=== PATIENT | female | born 1950 | race Caucasian/White ===

== ENCOUNTER 2016-11-18 09:39 | Emergency (ER) | payer OTHER, MEDICARE ==
[~2016-11-18] VITALS: Ht 149.9 cm; Wt 105.2 kg
[~2016-11-18 09:39] MED LIST: AMLO10TA PO; AMLO10TA2 PO; AMLO10TA82 PO; ASPI-875 PO; ATOR40TA70 PO; BNZ20T PO; CLOP75TA PO; LOVA40TA2 PO; METO50TA2 PO; PRAV40TA PO; PRAV80TA2 PO
[2016-11-18] MEDS ORDERED: ASPIRIN 81 MG CHEW (CHILDREN'S ASA) PO ONE (10:00)
[2016-11-18] MEDS ORDERED: KETOROLAC 30 MG/ML VIAL IVP ONE (10:00)
[2016-11-18 10:01] LABS: BASOPHILS % (AUTO) 1 % (0-10); EOSINOPHILS # (AUTO) 0.6 10^3/uL (0.0-0.3); EOSINOPHILS % (AUTO) 7 % (0-10); LYMPHOCYTES # (AUTO) 1.1 X 10^3 (1.0-4.0); LYMPHOCYTES % (AUTO) 13 % (12-44); MEAN CORPUSCULAR HEMOGLOBIN 29 PG (25-34); MEAN CORPUSCULAR HGB CONC 32 G/DL (32-36); MEAN CORPUSCULAR VOLUME 90 FL (80-99); MEAN PLATELET VOLUME 9.7 FL (7.4-10.4); MONOCYTES # (AUTO) 0.7 X 10^3 (0.0-1.0); MONOCYTES % (AUTO) 8 % (0-12); NEUTROPHILS # (AUTO) 6.2 X 10^3 (1.8-7.8); NEUTROPHILS % (AUTO) 72 % (42-75); PLATELET COUNT 340 10^3/uL (130-400); RED BLOOD COUNT 4.59 10^6/uL (4.35-5.85); RED CELL DISTRIBUTION WIDTH 14.1 % (10.0-14.5); WHITE BLOOD COUNT 8.7 10^3/uL (4.3-11.0)
[2016-11-18 10:11] LABS: PROTHROMBIN TIME PATIENT 13.3 SEC (12.2-14.7)
[2016-11-18 10:22] LABS: ALANINE AMINOTRANSFERASE 16 U/L (0-55); ALBUMIN 4.1 GM/DL (3.2-4.5); ANION GAP 11 MMOL/L (5-14); ASPARTATE AMINO TRANSFERASE 16 U/L (5-34); BILIRUBIN,TOTAL 0.8 MG/DL (0.1-1.0); BLOOD UREA NITROGEN 12 MG/DL (7-18); BUN/CREATININE RATIO 11 (0-20); CALCIUM 9.3 MG/DL (8.5-10.1); CARBON DIOXIDE 26 MMOL/L (21-32); CHLORIDE 106 MMOL/L (98-107); CREATININE SERUM 1.12 MG/DL (0.60-1.30); GFR ESTIMATED 48; GLUCOSE 106 MG/DL (70-105); POTASSIUM 4.1 MMOL/L (3.6-5.0); SODIUM 143 MMOL/L (135-145); TOTAL PROTEIN 7.8 GM/DL (6.4-8.2)
[2016-11-18 10:30] LABS: MYOGLOBIN SERUM 40.1 NG/ML (10.0-92.0)
--- NOTE | 2016-11-18 10:35 | Diagnostic Imaging Report ---
EXAMINATION: PA and lateral views of the chest. INDICATION: Shortness of breath. COMPARISON: 08/24/2012. FINDINGS: The heart size is moderately enlarged. There is minimal vascular congestion. No airspace consolidation. No effusion or pneumothorax. The mediastinum and araceli appear unremarkable. Sternotomy wires are seen and surgical clips in the upper right abdomen are noted. IMPRESSION: Cardiomegaly with minimal vascular congestion. Dictated by: Dictated on workstation # [id number]
--- NOTE | 2016-11-18 10:38 | ED Chest Pain ---
General Chief Complaint: Chest Pain Stated Complaint: CHEST PAIN Nursing Triage Note: PT REPORTS PAIN BETWEEN HER SHOULDER BLADES SINCE YESTERDAY. SHE IS ALSO C/O INCREASED SOA. PT REPORTS SHE BECAME DIAPHORETIC, BUT DENIES N/V. SHE DENIES CP AT THIS TIME. Nursing Sepsis Screen: No Definite Risk Source: patient Exam Limitations: no limitations History of Present Illness Time seen by provider: 09:47 Initial Comments This 66-year-old woman presents to the emergency room with complaints of pain in the right upper back and shortness of air. She has been diaphoretic at times with this pain as well. The pain is characterized as stabbing and is near the scapula on the right. It sometimes hurts to take a deep breath. Pain started last night. Patient reports she is 10 weeks post knee replacement. She also has a history of coronary artery disease and CABG. Her last heart catheter was in January 2016. She denies any tobacco use. Her budget counselor is Dr. Davis and her primary care provider is Jada Paul. She has tender, tight musculature in the affected area. She denies lower extremity symptoms. There is no tachycardia or hypoxia. Allergies and Home Medications Allergies Coded Allergies: ciprofloxacin (Unverified Allergy, Unknown, 07/31/14) cortisone (Verified Allergy, Unknown, 08/24/12) lovastatin (Unverified Allergy, Unknown, 01/22/16) ALLERGY LISTED ON [employer] SUPERINTENDENT ORDER 01/22/16 Home Medications Amlodipine Besylate 10 Mg Tablet, 10 MG PO DAILY, #30 Ref 5 Prescribed by: CITLALI DAVIS on 01/22/16 0947 Aspirin 81 Mg Tablet.dr, 81 MG PO DAILY, (Reported) Atorvastatin Calcium 40 Mg Tablet, 40 MG PO DAILY, (Reported) Clopidogrel Bisulfate 75 Mg Tablet, 75 MG PO DAILY, (Reported) Metoprolol Tartrate 50 Mg Tablet, 50 MG PO BID, (Reported) Review of Systems Constitutional: see HPI EENTM: No Symptoms Reported Respiratory: See HPI Cardiovascular: See HPI Gastrointestinal: No Symptoms Reported Musculoskeletal: see HPI Skin: no symptoms reported Psychiatric/Neurological: No Symptoms Reported Endocrine: No Symptoms Reported Past Vozlncd-Ayomcj-Beilxy Hx Patient Social History Alcohol Use: Denies Use Recreational Drug Use: No Smoking Status: Never a Smoker 2nd Hand Smoke Exposure: No Recent Foreign Travel: No Contact w/Someone Who Travel: No Recent Infectious Disease Expo: No Recent Hopitalizations: No Immunizations Up To Date Date of Pneumonia Vaccine: Feb 15, 2014 Surgeries HX Surgeries: Yes (HIATAL HERNIA, BLADDER TIE UP X2, INGUINAL HERNIA) Surgeries: Appendectomy, CABG, Coronary Stent, Hysterectomy, Joint Replacement (knee), Orthopedic, Tonsillectomy, Tubal Ligation Respiratory Hx Respiratory Disorders: Yes Respiratory Disorders: COPD Cardiovascular Hx Cardiac Disorders: Yes Cardiac Disorders: Coronary Artery Disease, Heart Attack, High Cholesterol, Hypertension Neurological Hx Neurological Disorders: No Reproductive System : No Genitourinary Hx Genitourinary Disorders: No Gastrointestinal Hx Gastrointestinal Disorders: No Musculoskeletal Hx Musculoskeletal Disorders: Yes Musculoskeletal Disorders: Arthritis Endocrine Hx Endocrine Disorders: No HEENT HX ENT Disorders: No Cancer Hx Cancer: No Psychosocial Hx Psychiatric Problems: Yes Physical Exam Vital Signs Vital Sign - Last 12Hours Capillary Refill : Less Than 3 Seconds General Appearance: WD/WN, Anxious, Mild Distress, Obese HEENT: PERRL/EOMI, Normal ENT Inspection Neck: Normal Inspection Respiratory: Chest Non Tender, Lungs Clear, Normal Breath Sounds, No Accessory Muscle Use, No Respiratory Distress Cardiovascular: Regular Rate, Rhythm, No Edema, No Murmur Gastrointestinal: Normal Bowel Sounds, Non Tender, Soft Extremity: Normal Inspection, Non Tender, No Calf Tenderness, No Pedal Edema, Other (negative Morelia. Tenderness over the musculature medial and inferior to the right scapula with muscle tension and spasm noted.) Neurologic/Psychiatric: Alert, Oriented x3, No Motor/Sensory Deficits, Normal Mood/Affect, powder guard II-XII Norm as Tested Skin: Normal Color, Warm/Dry Progress/Results/Core Measures Results/Orders Lab Results Laboratory Tests Test 11/18/16 09:50 Range/Units White Blood Count 8.7 4.3-11.0 10^3/uL Red Blood Count 4.59 4.35-5.85 10^6/uL Hemoglobin 13.2 11.5-16.0 G/DL Hematocrit 41 35-52 % Mean Corpuscular Volume 90 80-99 FL Mean Corpuscular Hemoglobin 29 25-34 PG Mean Corpuscular Hemoglobin Concent 32 32-36 G/DL Red Cell Distribution Width 14.1 10.0-14.5 % Platelet Count 340 130-400 10^3/uL Mean Platelet Volume 9.7 7.4-10.4 FL Neutrophils (%) (Auto) 72 42-75 % Lymphocytes (%) (Auto) 13 12-44 % Monocytes (%) (Auto) 8 0-12 % Eosinophils (%) (Auto) 7 0-10 % Basophils (%) (Auto) 1 0-10 % Neutrophils # (Auto) 6.2 1.8-7.8 X 10^3 Lymphocytes # (Auto) 1.1 1.0-4.0 X 10^3 Monocytes # (Auto) 0.7 0.0-1.0 X 10^3 Eosinophils # (Auto) 0.6 H 0.0-0.3 10^3/uL Basophils # (Auto) 0.0 0.0-0.1 10^3/uL Prothrombin Time 13.3 12.2-14.7 SEC INR Comment 1.0 0.8-1.4 Activated Partial Thromboplast Time 28 24-35 SEC Sodium Level 143 135-145 MMOL/L Potassium Level 4.1 3.6-5.0 MMOL/L Chloride Level 106 98-107 MMOL/L Carbon Dioxide Level 26 21-32 MMOL/L Anion Gap 11 5-14 MMOL/L Blood Urea Nitrogen 12 7-18 MG/DL Creatinine 1.12 0.60-1.30 MG/DL Estimat Glomerular Filtration Rate 48 BUN/Creatinine Ratio 11 0-20 Glucose Level 106 H 70-105 MG/DL Calcium Level 9.3 8.5-10.1 MG/DL Magnesium Level 2.0 1.8-2.4 MG/DL Total Bilirubin 0.8 0.1-1.0 MG/DL Aspartate Amino Transf (AST/SGOT) 16 5-34 U/L Alanine Aminotransferase (ALT/SGPT) 16 0-55 U/L Alkaline Phosphatase 106 40-136 U/L Myoglobin 40.1 10.0-92.0 NG/ML Troponin I < 0.30 <0.30 NG/ML Total Protein 7.8 6.4-8.2 GM/DL Albumin 4.1 3.2-4.5 GM/DL My Orders Orders - NATALIO KATHLEEN MD Cbc With Automated Diff (11/18/16 09:55) Magnesium (11/18/16 09:55) Ekg Tracing (11/18/16 09:55) Cardiac Profile 1 (11/18/16 09:55) Comprehensive Metabolic Panel (11/18/16 09:55) Myoglobin Serum (11/18/16 09:55) Protime With Inr (11/18/16 09:55) Partial Thromboplastin Time (11/18/16 09:55) O2 (11/18/16 09:55) Monitor-Rhythm Ecg Trace Only (11/18/16 09:55) Aspirin Chewable Tablet (Baby Aspirin Ch (11/18/16 10:00) Saline Lock/Iv-Start (11/18/16 09:55) Chest Pa/Lat (2 View) (11/18/16 09:55) Ketorolac Injection (Toradol Injection) (11/18/16 10:00) Medications Given in ED Vital Signs/I&O Vital Sign - Last 12Hours 11/18/16 11/18/16 11/18/16 09:50 09:50 11:08 Temp 98.9 98.9 Pulse 63 51 Resp 20 20 B/P (MAP) 187/114 Pulse Ox 97 97 O2 Delivery Room Air Room Air Room Air Blood Pressure Mean: 138 Progress Note #1: Time: 10:00 Progress Note Patient was found to have tight tender musculature in the area pertaining to her complaint. Toradol was given for treatment of pain. Chest pain protocol is being pursued. Patient was given the balance of her aspirin. Progress Note #2: Time: 11:06 Progress Note Patient's pain completely resolved with Toradol. Case discussed with Dr. Davis. He would like her to follow-up in the clinic tomorrow for a blood pressure check and management of her antihypertensive medicines. ECG Initial ECG Impression Date: Nov 18, 2016 Initial ECG Impression Time: 09:44 Initial ECG Rate: 63 Initial ECG Rhythm: Normal Sinus Initial ECG Intervals: Normal Comment Normal sinus rhythm with no ST elevation or depression. LVH by automated read. No abnormal intervals. Diagnostic Imaging Diagonstic Imaging: Xray Plain Films/CT/US/NM/MRI: chest Comments Chest X reviewed by me and report reviewed. See report below: NAME: STAILN YOUNG MED REC#: [id number] PT STATUS: REG ER : [id number] PHYSICIAN: NATALIO KATHLEEN MD ADMIT DATE: 11/18/16/ER Draft Date of Exam:11/18/16 CHEST PA/LAT (2 VIEW) EXAMINATION: PA and lateral views of the chest. INDICATION: Shortness of breath. COMPARISON: 08/24/2012. FINDINGS: The heart size is moderately enlarged. There is minimal vascular congestion. No airspace consolidation. No effusion or pneumothorax. The mediastinum and araceli appear unremarkable. Sternotomy wires are seen and surgical clips in the upper right abdomen are noted. IMPRESSION: Cardiomegaly with minimal vascular congestion. Dictated on workstation # [id number] Dict: 11/18/16 1023 Trans: 11/18/16 1035 [id number] Interpreted by: ADRIEN SHRESTHA MD Departure Impression Impression: Primary Impression: Upper back pain Additional Impressions: Muscle spasm Hypertension Qualified Codes: I10 - Essential (primary) hypertension Disposition: HOME, SELF-CARE Condition: Improved Departure-Patient Inst. Decision time for Depature: 11:03 Referrals: [facility]ALI DAVIS [facility] NO,LOCAL PHYSICIAN (PCP) Primary Care Physician Patient Instructions: Muscle Spasms (DC) Add. Discharge Instructions: You may take ibuprofen up to 600 mg every 6 hours as needed for pain. Add Tylenol (acetaminophen) up to 1000 mg every 6 hours as needed for additional pain relief. All up with Dr. Davis tomorrow for management of your blood pressure. Call his office today for an appointment time. Return to the ER if symptoms worsen. All discharge instructions reviewed with patient and/or family. Voiced understanding. Copy Copies To 1: CITLALI DAVIS MDP [facility] NATALIO KATHLEEN MD Nov 18, 2016 10:38
[2016-11-18 11:08] VITALS: BP 171/90
== END 2016-11-18 11:09 | disposition home or self-care (01) ==
LOC: EDUNIT# 09:39 → ER 09:42
DX: M62.830 Muscle spasm of back (principal); I10 Essential (primary) hypertension; J44.9 Chronic obstructive pulmonary disease, unspecified; I25.10 Atherosclerotic heart disease of native coronary artery without angina pectoris; I25.2 Old myocardial infarction; E78.00 Pure hypercholesterolemia, unspecified; Z95.1 Presence of aortocoronary bypass graft; Z79.82 Long term (current) use of aspirin
CPT/HCPCS: 36415; 71020; 80053; 83735; 83874; 84484; 85025; 85610; 85730; 93005; 93041

== ENCOUNTER → 2017-03-17 | Outpatient (CLI) | payer OTHER | LOC: CARD 10:36 | PROVIDERS: ATTEND Internal Medicine Cardiovascular Disease | DX: I25.10 Atherosclerotic heart disease of native coronary artery without angina pectoris (principal); R06.09 Other forms of dyspnea; R60.0 Localized edema; E78.2 Mixed hyperlipidemia; I10 Essential (primary) hypertension; I73.9 Peripheral vascular disease, unspecified; Z95.1 Presence of aortocoronary bypass graft | CPT/HCPCS: 93306; 93923 ==

== ENCOUNTER 2017-05-02 19:14 | Emergency (ER) | payer MEDICARE, OTHER ==
[~2017-05-02] VITALS: Ht 149.9 cm; Wt 105.2 kg
[2017-05-02] MEDS ORDERED: LACTATED RINGERS 1,000 ML IV ONE (19:29)
[2017-05-02] MEDS ORDERED: ONDANSETRON 4 MG/2 ML (SDV) Z0FRAN IVP ONE (19:30)
--- NOTE | 2017-05-02 19:38 | ED GI ---
General Chief Complaint: Abdominal/GI Problems Stated Complaint: VOMITING,DIARRHEA Nursing Triage Note: N/V/D Sepsis Screen: No Definite Risk Source of Information: Patient, Family (SON) History of Present Illness Time Seen By Provider: 19:30 Initial Comments PT ARRIVES VIA POV FROM HOME C/O NAUSEA/VOMITING/DIARRHEA SINCE 529 THIS AM HAS BEEN VOMITING AND HAVING DIARRHEA "EVERY 30 MINUTES" ALL DAY LONG--HAS BEEN TRYING TO DRINK SPRITE ALL DAY BUT CANNOT KEEP IT DOWN NO ABDOMINAL PAIN NO BACK PAIN NO FEVER VOIDING A NORMAL AMOUNT AND NO DIFFICULTY URINATING STARTING TO FEEL WEAK + SICK CONTACT WITH SAME NO SUSPICIOUS FOODS PCP: LAW FERRELL TROLLEY COLLECTOR: DR. PRADO Allergies and Home Medications Allergies Coded Allergies: ciprofloxacin (Unverified Allergy, Unknown, 07/31/14) cortisone (Verified Allergy, Unknown, 08/24/12) lovastatin (Unverified Allergy, Unknown, 01/22/16) ALLERGY LISTED ON [employer] ORDER 01/22/16 Home Medications Amlodipine Besylate 10 Mg Tablet, 10 MG PO DAILY, #30 Ref 5 Prescribed by: CITLALI PRADO on 01/22/16 0947 Aspirin 81 Mg Tablet.dr, 81 MG PO DAILY, (Reported) Atorvastatin Calcium 40 Mg Tablet, 40 MG PO DAILY, (Reported) Clopidogrel Bisulfate 75 Mg Tablet, 75 MG PO DAILY, (Reported) Metoprolol Tartrate 50 Mg Tablet, 50 MG PO BID, (Reported) Nitrofurantoin Monohyd/M-Cryst 100 Mg Capsule, 100 MG PO BID, #20 Prescribed by: MAGALIE MARTIN on 05/02/172040 Ondansetron 4 Mg Tab.rapdis, 4 MG PO Q4H, #10 Prescribed by: MAGALIE MARTIN on 05/02/172040 Review of Systems Constitutional: No chills, No diaphoresis, No dizziness, malaise, weakness EENTM: No Symptoms Reported Respiratory: No Symptoms Reported Cardiovascular: No Symptoms Reported Gastrointestinal: See HPI, Denies Abdominal Pain, Diarrhea, Nausea, Poor Appetite, Poor Fluid Intake, Vomiting Genitourinary: No Symptoms Reported Musculoskeletal: no symptoms reported Skin: no symptoms reported Psychiatric/Neurological: No Symptoms Reported Endocrine: No Symptoms Reported Hematologic/Lymphatic: No Symptoms Reported Past Hznqymf-Xbtbav-Lgvhci Hx Patient Social History Alcohol Use: Denies Use Recreational Drug Use: No Smoking Status: Never a Smoker 2nd Hand Smoke Exposure: No Recent Foreign Travel: No Contact w/Someone Who Travel: No Recent Infectious Disease Expo: No Recent Hopitalizations: No Immunizations Up To Date Date of Pneumonia Vaccine: Feb 15, 2014 Seasonal Allergies Seasonal Allergies: Yes Surgeries History of Surgeries: Yes (HIATAL HERNIA REPAIR; BLADDER SUSPENSION X2; INGUINAL HERNIA; CARDIAC CATHS--STENTX 1; BILATERAL KNEE REPLACEMENTS; 2 VESSEL CABG) Surgeries: Abdominal, Appendectomy, Cardiac, CABG, Coronary Stent, Gallbladder , Hysterectomy, Joint Replacement, Orthopedic, Tonsillectomy, Tubal Ligation Respiratory History of Respiratory Disorde: Yes Respiratory Disorders: COPD Cardiovascular History of Cardiac Disorders: Yes (CABG AND STENT X 1) Cardiac Disorders: Coronary Artery Disease, Heart Attack, High Cholesterol, Hypertension Neurological History of Neurological Disord: No Reproductive System : No 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, Tubal Ligation, Menopausal Genitourinary History of Genitourinary Disor: No Gastrointestinal History of Gastrointestinal Di: Yes (HIATAL HERNIA/INGUINAL HERNIA--S/P REPAIRS ; S/P YIMI) Gastrointestinal Disorders: Abdominal Hernia, Gastroesophageal Reflux, Hiatal Hernia, Gall Bladder Disease Musculoskeletal History of Musculoskeletal Dis: Yes (S/P BILATEARL KNEE REPLACEMENT) Musculoskeletal Disorders: Arthritis Endocrine History of Endocrine Disorders: No HEENT History of HEENT Disorders: No Cancer History of Cancer: No Psychosocial History of Psychiatric Problem: No Integumentary History of Skin or Integumenta: No Blood Transfusions History of Blood Disorders: No Physical Exam Vital Signs VS - Last 72 Hours, by Label 05/02/17 05/02/17 19:26 20:49 Temp 97.3 97.3 Pulse 109 90 Resp 24 22 B/P (MAP) 178/104 Pulse Ox 93 92 O2 Delivery Room Air Room Air Capillary Refill : Less Than 3 Seconds General Appearance: WD/WN, no apparent distress Respiratory: normal breath sounds, no respiratory distress, no accessory muscle use Cardiovascular: regular rate, rhythm, no edema, no JVD, no murmur Gastrointestinal: normal bowel sounds, non tender, soft, no organomegaly Extremities: normal inspection, no pedal edema, no calf tenderness, normal capillary refill Back: no CVA tenderness, no vertebral tenderness 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, no motor/sensory deficits, alert, normal mood/affect, oriented x 3 Skin: normal color, warm/dry, No rash Progress/Results/Core Measures Results/Orders Lab Results Laboratory Tests Test 05/02/17 19:30 05/02/17 19:35 Range/Units Urine Color YELLOW Urine Clarity SLIGHTLY CLOUDY Urine pH 5 5-9 Urine Specific [place] 1.025 H 1.016-1.022 Urine Protein 2+ H NEGATIVE Urine Glucose (UA) NEGATIVE NEGATIVE Urine Ketones NEGATIVE NEGATIVE Urine Nitrite NEGATIVE NEGATIVE Urine Bilirubin 1+ H NEGATIVE Urine Urobilinogen NORMAL NORMAL MG/DL Urine Leukocyte Esterase 3+ H NEGATIVE Urine RBC (Auto) 1+ H NEGATIVE Urine RBC 0-2 /HPF Urine WBC 25-50 H /HPF Urine Squamous Epithelial Cells >50 H /HPF Urine Crystals PRESENT H /LPF Urine Amorphous Sediment FEW GRECIA URATES H /LPF Urine Bacteria FEW H /HPF Urine Casts NONE /LPF Urine Mucus NEGATIVE /LPF Urine Culture Indicated YES White Blood Count 13.7 H 4.3-11.0 10^3/uL Red Blood Count 5.04 4.35-5.85 10^6/uL Hemoglobin 14.0 11.5-16.0 G/DL Hematocrit 43 35-52 % Mean Corpuscular Volume 85 80-99 FL Mean Corpuscular Hemoglobin 28 25-34 PG Mean Corpuscular Hemoglobin Concent 33 32-36 G/DL Red Cell Distribution Width 15.1 H 10.0-14.5 % Platelet Count 396 130-400 10^3/uL Mean Platelet Volume 9.7 7.4-10.4 FL Neutrophils (%) (Auto) 91 H 42-75 % Lymphocytes (%) (Auto) 4 L 12-44 % Monocytes (%) (Auto) 4 0-12 % Eosinophils (%) (Auto) 1 0-10 % Basophils (%) (Auto) 0 0-10 % Neutrophils # (Auto) 12.5 H 1.8-7.8 X 10^3 Lymphocytes # (Auto) 0.5 L 1.0-4.0 X 10^3 Monocytes # (Auto) 0.6 0.0-1.0 X 10^3 Eosinophils # (Auto) 0.1 0.0-0.3 10^3/uL Basophils # (Auto) 0.0 0.0-0.1 10^3/uL Neutrophils % (Manual) 81 % Lymphocytes % (Manual) 5 % Monocytes % (Manual) 2 % Eosinophils % (Manual) 0 % Basophils % (Manual) 0 % Band Neutrophils 12 % Blood Morphology Comment NORMAL Sodium Level 137 135-145 MMOL/L Potassium Level 4.2 3.6-5.0 MMOL/L Chloride Level 102 98-107 MMOL/L Carbon Dioxide Level 22 21-32 MMOL/L Anion Gap 13 5-14 MMOL/L Blood Urea Nitrogen 17 7-18 MG/DL Creatinine 1.04 0.60-1.30 MG/DL Estimat Glomerular Filtration Rate 53 BUN/Creatinine Ratio 16 Glucose Level 109 H 70-105 MG/DL Calcium Level 9.3 8.5-10.1 MG/DL Total Bilirubin 1.1 H 0.1-1.0 MG/DL Aspartate Amino Transf (AST/SGOT) 24 5-34 U/L Alanine Aminotransferase (ALT/SGPT) 18 0-55 U/L Alkaline Phosphatase 105 40-136 U/L Total Protein 9.1 H 6.4-8.2 GM/DL Albumin 4.0 3.2-4.5 GM/DL Amylase Level 56 25-125 U/L Lipase 37 8-78 U/L My Orders Orders - MAGALIE MARTIN DO Saline Lock/Iv-Start (05/02/17 19:29) Amylase (05/02/17 19:29) Cbc With Automated Diff (05/02/17 19:29) Comprehensive Metabolic Panel (05/02/17 19:29) Lipase (05/02/17 19:29) Ua Culture If Indicated (05/02/17 19:29) Ondansetron Injection (Zofran Injectio (05/02/17 19:30) Saline Lock/Iv-Start (05/02/17 19:29) Lactated Ringers (Lr 1000 Ml Iv Solution (05/02/17 19:29) Manual Differential (05/02/17 19:35) Urine Culture (05/02/17 19:30) Rx-Ondansetron Po (Rx-Zofran Po) (05/02/17 20:35) Rx-Nitrofurantoin [place] (Rx-Macrobid) (05/02/17 20:35) Medications Given in ED Current Medications Medications Dose Ordered Sig/Ivy Route Start Time Stop Time Status Last Admin Dose Admin Lactated Ringer's 1,000 ml @ 0 mls/hr Q0M ONCE IV 05/02/17 19:29 05/02/17 19:31 DC 05/02/17 19:38 0 MLS/HR Ondansetron HCl 4 mg ONCE ONCE IVP 05/02/17 19:30 05/02/17 19:31 DC 05/02/17 19:38 4 MG Vital Signs/I&O Vital Sign - Last 12Hours 05/02/17 05/02/17 19:26 20:49 Temp 97.3 97.3 Pulse 109 90 Resp 24 22 B/P (MAP) 178/104 Pulse Ox 93 92 O2 Delivery Room Air Room Air Intake and Output 05/03/17 00:00 Intake Total 1000 ml Balance 1000 ml Blood Pressure Mean: 128 Progress Note : Progress Note NO VOMITING OR DIARRHEA DURING ER STAY PT STATES SHE FEELS BETTER AFTER ZOFRAN AND IV FLUIDS VOIDED PRIOR TO DISMISSAL PT TOLERATING WATER AND ICE CHIPS PRIOR TO DISMISSAL Departure Impression Impression: Primary Impression: Gastroenteritis Additional Impression: UTI (urinary tract infection) Disposition: HOME, SELF-CARE Condition: Stable Departure-Patient Inst. Referrals: ANTONINO FERRELL (PCP/Family) Primary Care Physician Patient Instructions: [id number], Urinary Tract Infection, Adult (DC), Viral Gastroenteritis, Adult (DC) Add. Discharge Instructions: CLEAR LIQUIDS--WATER, BROTH, JELLO, GATORADE--SIPS AT A TIME TOMORROW IF YOU ARE BETTER, ADD BRATS DIET TO CLEAR LIQUIDS--BANANAS, RICE, APPLESAUCE, TOAST, SALTINES FOLLOW UP WITH YOUR DR ON THURSDAY IF NO BETTER, RETURN TO ER IF WORSE All discharge instructions reviewed with patient and/or family. Voiced understanding. Scripts Nitrofurantoin Monohyd/M-Cryst (Macrobid 100 mg Capsule) 100 Mg Capsule 100 MG PO BID, #20 CAP Prov: MAGALIE MARTIN DO 05/02/17 Ondansetron (Zofran Odt) 4 Mg Tab.rapdis 4 MG PO Q4H for Nausea/Vomiting, #10 TAB Prov: MAGALIE MARTIN DO 05/02/17 MAGALIE MARTIN DO May 02, 2017 19:38
[2017-05-02 19:45] LABS: BASOPHILS % (AUTO) 0 % (0-10); EOSINOPHILS # (AUTO) 0.1 10^3/uL (0.0-0.3); EOSINOPHILS % (AUTO) 1 % (0-10); LYMPHOCYTES # (AUTO) 0.5 X 10^3 (1.0-4.0); LYMPHOCYTES % (AUTO) 4 % (12-44); MEAN CORPUSCULAR HEMOGLOBIN 28 PG (25-34); MEAN CORPUSCULAR HGB CONC 33 G/DL (32-36); MEAN CORPUSCULAR VOLUME 85 FL (80-99); MEAN PLATELET VOLUME 9.7 FL (7.4-10.4); MONOCYTES # (AUTO) 0.6 X 10^3 (0.0-1.0); MONOCYTES % (AUTO) 4 % (0-12); NEUTROPHILS # (AUTO) 12.5 X 10^3 (1.8-7.8); NEUTROPHILS % (AUTO) 91 % (42-75); PLATELET COUNT 396 10^3/uL (130-400); RED BLOOD COUNT 5.04 10^6/uL (4.35-5.85); RED CELL DISTRIBUTION WIDTH 15.1 % (10.0-14.5); WHITE BLOOD COUNT 13.7 10^3/uL (4.3-11.0)
[2017-05-02 19:50] LABS: BILIRUBIN,URINE 1+ (NEGATIVE); KETONES,URINE NEGATIVE (NEGATIVE); LEUKOCYTE ESTERASE ,URINE 3+ (NEGATIVE); NITRITE,URINE NEGATIVE (NEGATIVE); PH,URINE 5 (5-9); PROTEIN,URINE 2+ (NEGATIVE); UROBILINOGEN,URINE NORMAL (NORMAL)
[2017-05-02 19:58] LABS: BAND NEUTROPHILS 12 %; BASOPHILS % (MANUAL) 0 %; EOSINOPHILS % (MANUAL) 0 %; LYMPHOCYTES % (MANUAL) 5 %; NEUTROPHILS % (MANUAL) 81 %
[2017-05-02 20:06] LABS: SQUAMOUS EPITHELIAL CELL,UR >50 /HPF; WBC,URINE 25-50 /HPF
[2017-05-02 20:06] LABS: BILIRUBIN,TOTAL 1.1 MG/DL (0.1-1.0); CALCIUM 9.3 MG/DL (8.5-10.1); CREATININE SERUM 1.04 MG/DL (0.60-1.30); POTASSIUM 4.2 MMOL/L (3.6-5.0); TOTAL PROTEIN 9.1 GM/DL (6.4-8.2)
[2017-05-02] MEDS ORDERED: RX-NITROFURANTOIN 100 MG (MACROBID) CAP PPK#2 PO STA (20:35)
[2017-05-02] MEDS ORDERED: RX-ONDANSETRON 4 MG ODT (ZOFRAN) PPK #4 PO STA (20:35)
[2017-05-02] MEDS ORDERED: NITR-65 PO (20:41)
[2017-05-02] MEDS ORDERED: ONDA4TAB8 PO (20:41)
[2017-05-02 20:49] VITALS: BP 156/105
== END 2017-05-02 20:44 | disposition home or self-care (01) ==
LOC: EDUNIT# 19:14 → ER 19:16
DX: K52.9 Noninfective gastroenteritis and colitis, unspecified (principal); N39.0 Urinary tract infection, site not specified; J44.9 Chronic obstructive pulmonary disease, unspecified; I25.10 Atherosclerotic heart disease of native coronary artery without angina pectoris; I25.2 Old myocardial infarction; E78.00 Pure hypercholesterolemia, unspecified; I10 Essential (primary) hypertension; M19.90 Unspecified osteoarthritis, unspecified site; Z79.82 Long term (current) use of aspirin; Z87.19 Personal history of other diseases of the digestive system; Z95.5 Presence of coronary angioplasty implant and graft; Z96.653 Presence of artificial knee joint, bilateral; Z90.49 Acquired absence of other specified parts of digestive tract; Z95.1 Presence of aortocoronary bypass graft; Z90.710 Acquired absence of both cervix and uterus; Z98.51 Tubal ligation status; Z90.89 Acquired absence of other organs
CPT/HCPCS: 36415; 80053; 81000; 82150; 83690; 85007; 85025; 85027; 87088

== ENCOUNTER → 2018-09-14 | Outpatient (CLI) | payer OTHER ==
[~2018-09-14] VITALS: Ht 144.8 cm; Wt 112.0 kg
[~2018-09-14] MED LIST changes: -AMLO10TA2 PO; +AMLO10TA7 PO; +CATHETER FLUSH 10 ML SYR IV PRN; +METO50TA15 PO; +NITR-65 PO; +ONDA4TAB8 PO; +REGADENOSON 0.4 MG/5 ML SYR (LEXISCAN) IV ONE
[2018-09-14 09:16] VITALS: BP 189/101
[2018-09-14 09:17] VITALS: BP 182/94
--- NOTE | 2018-09-14 19:41 | STRESS TEST ---
DATE OF SERVICE: 09/14/2018 RESTING AND POST REGADENOSON TECHNETIUM-99M TETROFOSMIN SPECT CT IMAGING ORDERING PHYSICIAN: Selene Davis MD, LESLEY, FACP, FACC. PRIMARY CARE PHYSICIAN: ROSMERY Francis. CLINICAL DIAGNOSES: Coronary artery disease, hyperlipidemia. Baseline images were carried out after injection of 10.37 mCi technetium-99m Tetrofosmin. This was followed by 0.4 mg regadenoson and 30.2 mCi technetium-99m Tetrofosmin for stress imaging. The electrocardiogram shows sinus rhythm at baseline. The electrocardiogram did not change significantly with the regadenoson infusion. There was subtle nonspecific ST abnormality at baseline, which did not change significantly with the regadenoson infusion. The patient noted some shortness of breath following the regadenoson infusion, which resolved in a few minutes. Review of images at rest and following stress does not indicate any significant perfusion defects consistent with significant myocardial ischemia or infarction. Gated images show normal global left ventricular systolic function with normal regional wall motion. Left ventricular ejection fraction is calculated to be 72%. Left ventricular end diastolic volume is 36 mL. TID is absent (1). CONCLUSIONS: 1. No evidence of any significant myocardial ischemia or infarction on this study. 2. Normal regional wall motion. 3. Normal global left ventricular systolic function with an ejection fraction of 72%. Job ID: [id number] DocumentID: [id number] Dictated Date: 09/14/2018 16:19:51 Washing Machine Operator Date: 09/14/2018 19:40:06 Dictated By: SELENE DAVIS MD, LESLEY, FACP, FACC,
== END ==
LOC: CARD 07:41
PROVIDERS: ATTEND Internal Medicine Cardiovascular Disease
DX: I25.10 Atherosclerotic heart disease of native coronary artery without angina pectoris (principal); E78.5 Hyperlipidemia, unspecified; I10 Essential (primary) hypertension; E66.9 Obesity, unspecified; I65.23 Occlusion and stenosis of bilateral carotid arteries; G47.33 Obstructive sleep apnea (adult) (pediatric); Z95.1 Presence of aortocoronary bypass graft
CPT/HCPCS: 78452; 93017

== ENCOUNTER 2018-10-21 12:16 | Inpatient (IN) | payer OTHER, MEDICARE ==
[~2018-10-21] VITALS: Ht 149.9 cm; Wt 112.6 kg
[~2018-10-21 12:16] MED LIST changes: -CATHETER FLUSH 10 ML SYR IV PRN; -REGADENOSON 0.4 MG/5 ML SYR (LEXISCAN) IV ONE
--- OUTSIDE RECORDS SUMMARY | 2018-10-21 12:21 | XMS REPORT | Continuity of Care Document ---
Author Organization Unknown Address Unknown Allergies Active Description Code Type Severity Reaction Onset Reported/Identified Relationship to Patient Clinical Status Yes cortisone [id number] Drug Allergy Unknown N/A 08/24/2012 Yes ciprofloxacin [id number] Drug Allergy Unknown N/A 07/31/2014 Yes lovastatin [id number] Drug Allergy Unknown N/A 01/22/2016 Medications There is no data. 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 01/24/2013 JOHAN GREGORY FACC, CITLALI FACP CCDS Ot 414.4 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 01/24/2013 JOHAN GREGORY FACC, CITLALI FACP CCDS Ot 724.5 BACKACHE NOS 01/24/2013 JOHAN GREGORY FACC, CITLALI FACP CCDS Ot 782.3 EDEMA 01/24/2013 JOHAN GREGORY FACC, CITLALI FACP CCDS Ot 786.09 RESPIRATORY ABNORM NEC 01/24/2013 JOHAN GREGORY FACC, CITLALI FACP CCDS Ot V45.82 PERCUTANEOUS TRANSLUM CORON ANGIOPLASTY 01/24/2013 JOHAN GREGORY FACC, CITLALI FACP CCDS Ot V58.69 OTH MED,LT,CURRENT USE 04/27/2014 JOHAN GREGORY FACC, ALI FACP CCDS Ot 272.4 04/27/2014 JOHAN MD FACC, ALI FACP CCDS Ot 278.01 04/27/2014 JOHAN GREGORY FACC, ALI FACP CCDS Ot 401.9 04/27/2014 JOHAN GREGORY FACC, ALI FACP CCDS Ot 414.00 04/27/2014 JOHAN GREGORY FACC, ALI FACP CCDS Ot 416.8 04/27/2014 JOHAN GREGORY FACC, ALI FACP CCDS Ot 786.09 04/27/2014 JOHAN GREGORY FACC, ALI FACP CCDS Ot 786.50 04/27/2014 JOHAN GREGORY FACC, ALI FACP CCDS Ot V45.81 04/27/2014 JOHAN GREGORY FACC, ALI FACP CCDS Ot V85.42 05/29/2014 JOHAN GREGORY FACC, ALI FACP CCDS Ot 272.4 05/29/2014 JOHAN GREGORY FACC, ALI FACP CCDS Ot 278.01 05/29/2014 JOHAN GREGORY FACC, ALI FACP CCDS Ot 401.9 05/29/2014 JOHAN GREGORY FACC, ALI FACP CCDS Ot 414.00 05/29/2014 JOHAN GREGORY FACC, ALI FACP CCDS Ot 416.8 05/29/2014 JOHAN GREGORY FACC, ALI FACP CCDS Ot 786.09 05/29/2014 JOHAN GREGORY FACC, ALI FACP CCDS Ot 786.50 05/29/2014 JOHAN GREGORY FACC, ALI FACP CCDS Ot V45.81 05/29/2014 JOHAN GREGORY FACC, ALI FACP CCDS Ot V85.42 07/31/2014 Ot 401.9 HYPERTENSION NOS 08/15/2014 Ot 272.0 PURE HYPERCHOLESTEROLEM 08/15/2014 Ot 278.01 MORBID OBESITY 08/15/2014 Ot 346.90 MIGRAINE UNSPECIFIED W/O INTRACT MGRN W/ 08/15/2014 Ot 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 08/15/2014 Ot 440.0 AORTIC ATHEROSCLEROSIS 08/15/2014 Ot 786.09 RESPIRATORY ABNORM NEC 08/15/2014 Ot V45.81 AORTOCORONARY BYPASS 08/15/2014 Ot V45.82 PERCUTANEOUS TRANSLUM CORON ANGIOPLASTY 08/15/2014 Ot V58.69 OTH MED,LT, CURRENT USE 08/15/2014 Ot V85.42 BODY MASS INDEX 45.0-49.9, ADULT 05/15/2015 Ot V76.12 01/22/2016 SHAMIKA ABEBE FIGURE CLERK Ot 729.5 PAIN IN LIMB 01/22/2016 JOHAN MARTINC, ALI FACP CCDS Ot 397.0 TRICUSPID VALVE DISEASE 01/22/2016 JOHAN GREGORY FACC, ALI FACP CCDS Ot 401.9 HYPERTENSION NOS 01/22/2016 JOHAN GREGORY FACC, ALI FACP CCDS Ot 414.00 CORON ATHEROSCLER NOS TYPE VESSEL, NATIV 01/22/2016 JOHAN GREGORY FACC, ALI FACP CCDS Ot 416.8 CHR PULMON HEART DIS NEC 01/22/2016 JOHAN GREGORY FACC, ALI FACP CCDS Ot 424.0 MITRAL VALVE DISORDER 01/22/2016 JOHAN GREGORY FACC, ALI FACP CCDS Ot V45.81 AORTOCORONARY BYPASS 01/22/2016 JOHAN MARTINC, ALI FACP CCDS Ot 272.4 HYPERLIPIDEMIA NEC/NOS 01/22/2016 JOHAN GREGORY FACC, ALI FACP CCDS Ot 278.01 MORBID OBESITY 01/22/2016 JOHAN MARTINC, ALI FACP CCDS Ot 401.9 HYPERTENSION NOS 01/22/2016 JOHAN MARTINC, ALI FACP CCDS Ot 414.00 CORON ATHEROSCLER NOS TYPE VESSEL, NATIV 01/22/2016 JOHAN GREGORY FACC, ALI FACP CCDS Ot 416.8 CHR PULMON HEART DIS NEC 01/22/2016 JOHAN MARTINC, ALI FACP CCDS Ot 786.09 RESPIRATORY ABNORM NEC 01/22/2016 JOHAN MARTINC, ALI FACP CCDS Ot 786.50 CHEST PAIN NOS 01/22/2016 JOHAN GREGORY FACC, ALI FACP CCDS Ot V45.81 AORTOCORONARY BYPASS 01/22/2016 JOHAN GREGORY FACC, ALI FACP CCDS Ot V85.42 BODY MASS INDEX 45.0-49.9, ADULT 01/22/2016 Ot V76.12 OTH SCREEN MAMMO-MALIGN NEOPLASM OF NO 01/22/2016 JOHAN MARTINC, ALI FACP CCDS Ot E66.9 OBESITY, UNSPECIFIED 01/22/2016 JOHAN MARTINC, ALI FACP CCDS Ot E78.0 PURE HYPERCHOLESTEROLEMIA 01/22/2016 JOHAN MARTINC, ALI FACP CCDS Ot 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 01/22/2016 JOHAN GREGORY FACC, ALI FACP CCDS Ot I25.84 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 01/22/2016 JOHAN GREGORY FACC, ALI FACP CCDS Ot I70.0 ATHEROSCLEROSIS OF AORTA 01/22/2016 JOHAN GREGORY FACC, ALI FACP CCDS Ot J44.9 CHRONIC OBSTRUCTIVE PULMONARY DISEASE, U 01/22/2016 JOHAN MARTINC, ALI FACP CCDS Ot Z68.42 BODY MASS INDEX (BMI) 45.0-49.9, ADULT 01/22/2016 JOHAN MARTINC, ALI FACP CCDS Ot Z79.899 OTHER FDC (CURRENT) DRUG THERAPY 01/22/2016 JOHAN GREGORY FACC, ALI FACP CCDS Ot Z95.1 PRESENCE OF AORTOCORONARY BYPASS GRAFT 01/22/2016 JOHAN GREGORY FACC, ALI FACP CCDS Ot Z95.5 PRESENCE OF CORONARY ANGIOPLASTY IMPLANT 01/29/2016 JOHAN GREGORY FACC, ALI FACP CCDS Ot E66.9 OBESITY, UNSPECIFIED 01/29/2016 JOHAN GREGORY FACC, ALI FACP CCDS Ot E78.0 PURE HYPERCHOLESTEROLEMIA 01/29/2016 JOHAN MARTINC, ALI FACP CCDS Ot 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 01/29/2016 JOHAN GREGORY FACC, ALI FACP CCDS Ot I25.84 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 01/29/2016 JOHAN GREGORY FACC, ALI FACP CCDS Ot I70.0 ATHEROSCLEROSIS OF AORTA 01/29/2016 JOHAN GREGORY FACC, ALI FACP CCDS Ot J44.9 CHRONIC OBSTRUCTIVE PULMONARY DISEASE, U 01/29/2016 JOHAN GREGORY FACC, ALI FACP CCDS Ot Z68.42 BODY MASS INDEX (BMI) 45.0-49.9, ADULT 01/29/2016 JOHAN GREGORY FACC, ALI FACP CCDS Ot Z79.899 OTHER FDC (CURRENT) DRUG THERAPY 01/29/2016 JOHAN GREGORY FACC, ALI FACP CCDS Ot Z95.1 PRESENCE OF AORTOCORONARY BYPASS GRAFT 01/29/2016 JOHAN GREGORY FACC, ALI FACP CCDS Ot Z95.5 PRESENCE OF CORONARY ANGIOPLASTY IMPLANT 01/31/2016 JOHAN GREGORY FACC, ALI FACP CCDS Ot E66.9 OBESITY, UNSPECIFIED 01/31/2016 JOHAN MARTIN, ALI FACP CCDS Ot E78.0 PURE HYPERCHOLESTEROLEMIA 01/31/2016 JOHAN GREGORY FACC, ALI FACP CCDS Ot 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 01/31/2016 JOHAN GREGORY FACC, ALI FACP CCDS Ot I25.84 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 01/31/2016 JOHAN GREGORY FACC, ALI FACP CCDS Ot I70.0 ATHEROSCLEROSIS OF AORTA 01/31/2016 JOHAN MARTIN, ALI FACP CCDS Ot J44.9 CHRONIC OBSTRUCTIVE PULMONARY DISEASE, U 01/31/2016 JOHNA GREGORY FACC, ALI FACP CCDS Ot Z68.42 BODY MASS INDEX (BMI) 45.0-49.9, ADULT 01/31/2016 JOHAN GREGORY FACC, ALI FACP CCDS Ot Z79.899 OTHER FDC (CURRENT) DRUG THERAPY 01/31/2016 JOHAN GREGORY FACC, ALI FACP CCDS Ot Z95.1 PRESENCE OF AORTOCORONARY BYPASS GRAFT 01/31/2016 JOHAN GREGORY FACC, ALI FACP CCDS Ot Z95.5 PRESENCE OF CORONARY ANGIOPLASTY IMPLANT 11/18/2016 NATALIO KATHLEEN MD Ot E78.00 PURE HYPERCHOLESTEROLEMIA, UNSPECIFIED 11/18/2016 NATALIO KATHLEEN MD Ot I10 ESSENTIAL (PRIMARY) HYPERTENSION 11/18/2016 NATALIO KATHLEEN MD Ot 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 11/18/2016 NATALIO KATHLEEN MD Ot I25.2 OLD MYOCARDIAL INFARCTION 11/18/2016 NATALIO KATHLEEN MD Ot J44.9 CHRONIC OBSTRUCTIVE PULMONARY DISEASE, U 11/18/2016 NATALIO KATHLEEN MD Ot M54.6 PAIN IN THORACIC SPINE 11/18/2016 NATALIO KATHLEEN MD Ot M62.830 MUSCLE SPASM OF BACK 11/18/2016 NATALIO KATHLEEN MD Ot Z79.82 FDC (CURRENT) USE OF ASPIRIN 11/18/2016 NATALIO KATHLEEN MD Ot Z95.1 PRESENCE OF AORTOCORONARY BYPASS GRAFT 11/18/2016 Ot V76.12 OTH SCREEN MAMMO-MALIGN NEOPLASM OF NO 11/18/2016 SHAMIKA ABEBE FIGURE CLERK Ot 729.5 PAIN IN LIMB 11/18/2016 JOHAN GREGORY FACC, ALI FACP CCDS Ot 397.0 TRICUSPID VALVE DISEASE 11/18/2016 JOHAN GREGORY FACC, ALI FACP CCDS Ot 401.9 HYPERTENSION NOS 11/18/2016 JOHAN GREGORY FACC, ALI FACP CCDS Ot 414.00 CORON ATHEROSCLER NOS TYPE VESSEL, NATIV 11/18/2016 JOHAN GREGORY FACC, ALI FACP CCDS Ot 416.8 CHR PULMON HEART DIS NEC 11/18/2016 JOHAN GREGORY FACC, ALI FACP CCDS Ot 424.0 MITRAL VALVE DISORDER 11/18/2016 JOHAN GREGORY FACC, ALI FACP CCDS Ot V45.81 AORTOCORONARY BYPASS 11/18/2016 JOHAN GREGORY FACC, ALI FACP CCDS Ot 272.4 HYPERLIPIDEMIA NEC/NOS 11/18/2016 JOHAN GREGORY FACC, ALI FACP CCDS Ot 278.01 MORBID OBESITY 11/18/2016 JOHAN GREGORY FACC, ALI FACP CCDS Ot 401.9 HYPERTENSION NOS 11/18/2016 JOHAN GREGORY FACC, ALI FACP CCDS Ot 414.00 CORON ATHEROSCLER NOS TYPE VESSEL, NATIV 11/18/2016 JOHAN GREGORY FACC, ALI FACP CCDS Ot 416.8 CHR PULMON HEART DIS NEC 11/18/2016 JOHAN MARTINC, ALI FACP CCDS Ot 786.09 RESPIRATORY ABNORM NEC 11/18/2016 JOHAN MARTINC, ALI FACP CCDS Ot 786.50 CHEST PAIN NOS 11/18/2016 JOHAN GREGORY FACC, ALI FACP CCDS Ot V45.81 AORTOCORONARY BYPASS 11/18/2016 JOHAN GREGORY FACC, ALI FACP CCDS Ot V85.42 BODY MASS INDEX 45.0-49.9, ADULT 11/20/2016 NATALIO KATHLEEN MD Ot E78.00 PURE HYPERCHOLESTEROLEMIA, UNSPECIFIED 11/20/2016 NATALIO KATHLEEN MD Ot I10 ESSENTIAL (PRIMARY) HYPERTENSION 11/20/2016 NATALIO KATHLEEN MD Ot 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 11/20/2016 NATALIO KATHLEEN MD, Ot I25.2 OLD MYOCARDIAL INFARCTION 11/20/2016 NATALIO KATHLEEN MD Ot J44.9 CHRONIC OBSTRUCTIVE PULMONARY DISEASE, U 11/20/2016 NATALIO KATHLEEN MD Ot M54.6 PAIN IN THORACIC SPINE 11/20/2016 NATALIO KATHLEEN MD Ot M62.830 MUSCLE SPASM OF BACK 11/20/2016 NATALIO KATHLEEN MD Ot Z79.82 FDC (CURRENT) USE OF ASPIRIN 11/20/2016 NATALIO KATHLEEN MD Ot Z95.1 PRESENCE OF AORTOCORONARY BYPASS GRAFT 11/24/2016 NATALIO KATHLEEN MD Ot E78.00 PURE HYPERCHOLESTEROLEMIA, UNSPECIFIED 11/24/2016 NATALIO KATHLEEN MD Ot I10 ESSENTIAL (PRIMARY) HYPERTENSION 11/24/2016 NATALIO KATHLEEN MD Ot 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 11/24/2016 NATALIO KATHLEEN MD, Ot I25.2 OLD MYOCARDIAL INFARCTION 11/24/2016 NATALIO KATHLEEN MD, Ot J44.9 CHRONIC OBSTRUCTIVE PULMONARY DISEASE, U 11/24/2016 NATALIO KATHLEEN MD Ot M54.6 PAIN IN THORACIC SPINE 11/24/2016 NATALIO KATHLEEN MD Ot M62.830 MUSCLE SPASM OF BACK 11/24/2016 NATALIO KATHLEEN MD Ot Z79.82 FDC (CURRENT) USE OF ASPIRIN 11/24/2016 NATALIO KATHLEEN MD Ot Z95.1 PRESENCE OF AORTOCORONARY BYPASS GRAFT 03/13/2017 SHAMIKA ABEBE FIGURE CLERK Ot 729.5 PAIN IN LIMB 03/13/2017 JOHAN GREGORY FACC, CITLALI FACP CCDS Ot 397.0 TRICUSPID VALVE DISEASE 03/13/2017 JOHAN GREGORY FACC, CITLALI FACP CCDS Ot 401.9 HYPERTENSION NOS 03/13/2017 JOHAN GREGORY FACC, CITLALI FACP CCDS Ot 414.00 CORON ATHEROSCLER NOS TYPE VESSEL, NATIV 03/13/2017 CITLALI PRADO MD, FACC FACP CCDS Ot 416.8 CHR PULMON HEART DIS NEC 03/13/2017 JOHAN MD FACC, ALI FACP CCDS Ot 424.0 MITRAL VALVE DISORDER 03/13/2017 JOHAN GREGORY FACC, ALI FACP CCDS Ot V45.81 AORTOCORONARY BYPASS 03/13/2017 JOHAN GREGORY FACC, ALI FACP CCDS Ot 272.4 HYPERLIPIDEMIA NEC/NOS 03/13/2017 JOHAN GREGORY FACC, ALI FACP CCDS Ot 278.01 MORBID OBESITY 03/13/2017 JOHAN MARTINC, ALI FACP CCDS Ot 401.9 HYPERTENSION NOS 03/13/2017 JOHAN MARTINC, ALI FACP CCDS Ot 414.00 CORON ATHEROSCLER NOS TYPE VESSEL, NATIV 03/13/2017 JOHAN GREGORY FACC, ALI FACP CCDS Ot 416.8 CHR PULMON HEART DIS NEC 03/13/2017 JOHAN GREGORY FACC, ALI FACP CCDS Ot 786.09 RESPIRATORY ABNORM NEC 03/13/2017 JOHAN MARTINC, ALI FACP CCDS Ot 786.50 CHEST PAIN NOS 03/13/2017 JOHAN GREGORY FACC, ALI FACP CCDS Ot V45.81 AORTOCORONARY BYPASS 03/13/2017 JOHAN GREGORY FACC, ALI FACP CCDS Ot V85.42 BODY MASS INDEX 45.0-49.9, ADULT 05/02/2017 VERONICA DO MAGALIE K Ot E78.00 PURE HYPERCHOLESTEROLEMIA, UNSPECIFIED 05/02/2017 VERONICA DO MAGALIE K Ot I10 ESSENTIAL (PRIMARY) HYPERTENSION 05/02/2017 VERONICA DO MAGALIE K Ot 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 05/02/2017 VERONICA TRACEY MAGALIE K Ot I25.2 OLD MYOCARDIAL INFARCTION 05/02/2017 VERONICA DO MAGALIE K Ot J44.9 CHRONIC OBSTRUCTIVE PULMONARY DISEASE, U 05/02/2017 VERONICA DO MAGALIE K Ot K52.9 NONINFECTIVE GASTROENTERITIS AND COLITIS 05/02/2017 VERONICA DO MAGALIE K Ot M19.90 UNSPECIFIED OSTEOARTHRITIS, UNSPECIFIED 05/02/2017 VERONICA DO MAGALIE K Ot N39.0 URINARY TRACT INFECTION, SITE NOT SPECIF 05/02/2017 VERONICA DO MAGALIE K Ot R11.2 NAUSEA WITH VOMITING, UNSPECIFIED 05/02/2017 VERONICA DO MAGALIE K Ot Z79.82 FDC (CURRENT) USE OF ASPIRIN 05/02/2017 MAGALIE MARTIN DO Ot Z87.19 PERSONAL HISTORY OF OTHER DISEASES OF TH 05/02/2017 MAGALIE MARTIN DO Ot Z90.49 ACQUIRED ABSENCE OF OTHER SPECIFIED PART 05/02/2017 MAGALIE MARTIN DO Ot Z90.710 ACQUIRED ABSENCE OF BOTH CERVIX AND UTER 05/02/2017 MAGALIE MARTIN DO Ot Z90.89 ACQUIRED ABSENCE OF OTHER ORGANS 05/02/2017 MAGALIE MARTIN DO Ot Z95.1 PRESENCE OF AORTOCORONARY BYPASS GRAFT 05/02/2017 MAGALIE MARTIN DO Ot Z95.5 PRESENCE OF CORONARY ANGIOPLASTY IMPLANT 05/02/2017 MAGALIE MARTIN DO Ot Z96.653 PRESENCE OF ARTIFICIAL KNEE JOINT, BILAT 05/02/2017 MAGALIE MARTIN DO Ot Z98.51 TUBAL LIGATION STATUS 05/02/2017 SHAMIKA ABEBE Ot 729.5 PAIN IN LIMB 05/02/2017 JOHAN GREGORY FACC, ALI FACP CCDS Ot 397.0 TRICUSPID VALVE DISEASE 05/02/2017 JOHAN GREGORY FACC, ALI FACP CCDS Ot 401.9 HYPERTENSION NOS 05/02/2017 JOHAN GREGORY FACC, ALI FACP CCDS Ot 414.00 CORON ATHEROSCLER NOS TYPE VESSEL, NATIV 05/02/2017 JOHAN GREGORY FACC, ALI FACP CCDS Ot 416.8 CHR PULMON HEART DIS NEC 05/02/2017 JOHAN GREGORY FACC, ALI FACP CCDS Ot 424.0 MITRAL VALVE DISORDER 05/02/2017 JOHAN GREGORY FACC, ALI FACP CCDS Ot V45.81 AORTOCORONARY BYPASS 05/02/2017 JOHAN GREGORY FACC, ALI FACP CCDS Ot 272.4 HYPERLIPIDEMIA NEC/NOS 05/02/2017 JOHAN GREGORY FACC, ALI FACP CCDS Ot 278.01 MORBID OBESITY 05/02/2017 JOHAN GREGORY FACC, ALI FACP CCDS Ot 401.9 HYPERTENSION NOS 05/02/2017 JOHAN GREGORY FACC, ALI FACP CCDS Ot 414.00 CORON ATHEROSCLER NOS TYPE VESSEL, NATIV 05/02/2017 JOHAN GREGORY FACC, ALI FACP CCDS Ot 416.8 CHR PULMON HEART DIS NEC 05/02/2017 JOHAN GREGORY FACC, ALI FACP CCDS Ot 786.09 RESPIRATORY ABNORM NEC 05/02/2017 JOHAN GREGORY FACC, ALI FACP CCDS Ot 786.50 CHEST PAIN NOS 05/02/2017 JOHAN GREGORY FACC, ALI FACP CCDS Ot V45.81 AORTOCORONARY BYPASS 05/02/2017 JOHAN GREGORY FACC, ALI FACP CCDS Ot V85.42 BODY MASS INDEX 45.0-49.9, ADULT 05/02/2017 JOHAN MARTINC, ALI FACP CCDS Ot E78.2 MIXED HYPERLIPIDEMIA 05/02/2017 JOHAN GREGORY FACC, ALI FACP CCDS Ot I10 ESSENTIAL (PRIMARY) HYPERTENSION 05/02/2017 JOHAN GREGORY FACC, ALI FACP CCDS Ot 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 05/02/2017 JOHAN GREGORY FACC, ALI FACP CCDS Ot I73.9 PERIPHERAL VASCULAR DISEASE, UNSPECIFIED 05/02/2017 JOHAN GREGORY FACC, ALI FACP CCDS Ot R06.09 OTHER FORMS OF DYSPNEA 05/02/2017 JOHAN GREGORY FACC, ALI FACP CCDS Ot R60.0 LOCALIZED EDEMA 05/02/2017 JOHAN GREGORY FACC, ALI FACP CCDS Ot Z95.1 PRESENCE OF AORTOCORONARY BYPASS GRAFT 09/10/2018 JOHAN GREGORY FACC, ALI FACP CCDS Ot 397.0 TRICUSPID VALVE DISEASE 09/10/2018 JOHAN GREGORY FACC, ALI FACP CCDS Ot 401.9 HYPERTENSION NOS 09/10/2018 JOHAN GREGORY FACC, ALI FACP CCDS Ot 414.00 CORON ATHEROSCLER NOS TYPE VESSEL, NATIV 09/10/2018 JOHAN GREGORY FACC, ALI FACP CCDS Ot 416.8 CHR PULMON HEART DIS NEC 09/10/2018 JOHAN GREGORY FACC, ALI FACP CCDS Ot 424.0 MITRAL VALVE DISORDER 09/10/2018 JOHAN GREGORY FACC, ALI FACP CCDS Ot V45.81 AORTOCORONARY BYPASS 09/10/2018 JOHAN GREGORY FACC, ALI FACP CCDS Ot 272.4 HYPERLIPIDEMIA NEC/NOS 09/10/2018 JOHAN GREGORY FACC, ALI FACP CCDS Ot 278.01 MORBID OBESITY 09/10/2018 JOHAN GRGEORY FACC, ALI FACP CCDS Ot 401.9 HYPERTENSION NOS 09/10/2018 JOHAN GREGORY FACC, ALI FACP CCDS Ot 414.00 CORON ATHEROSCLER NOS TYPE VESSEL, NATIV 09/10/2018 JOHAN GREGORY FACC, ALI FACP CCDS Ot 416.8 CHR PULMON HEART DIS NEC 09/10/2018 JOHAN GREGORY FACC, ALI FACP CCDS Ot 786.09 RESPIRATORY ABNORM NEC 09/10/2018 JOHAN GREGORY FACC, ALI FACP CCDS Ot 786.50 CHEST PAIN NOS 09/10/2018 JOHAN GREGORY FACC, ALI FACP CCDS Ot V45.81 AORTOCORONARY BYPASS 09/10/2018 JOHAN GREGORY FACC, ALI FACP CCDS Ot V85.42 BODY MASS INDEX 45.0-49.9, ADULT 09/10/2018 JOHAN GREGORY FACC, ALI FACP CCDS Ot E78.2 MIXED HYPERLIPIDEMIA 09/10/2018 JOHAN GREGORY FACC, ALI FACP CCDS Ot I10 ESSENTIAL (PRIMARY) HYPERTENSION 09/10/2018 JOHAN GREGORY FACC, ALI FACP CCDS Ot 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 09/10/2018 JOHAN GREGORY FACC, ALI FACP CCDS Ot I73.9 PERIPHERAL VASCULAR DISEASE, UNSPECIFIED 09/10/2018 JOHAN GREGORY FACC, ALI FACP CCDS Ot R06.09 OTHER FORMS OF DYSPNEA 09/10/2018 JOHAN GREGORY FACC, ALI FACP CCDS Ot R60.0 LOCALIZED EDEMA 09/10/2018 JOHAN GREGORY FACC, ALI FACP CCDS Ot Z95.1 PRESENCE OF AORTOCORONARY BYPASS GRAFT 09/15/2018 JOHAN GREGORY FACC, ALI FACP CCDS Ot E66.9 OBESITY, UNSPECIFIED 09/15/2018 JOHAN GREGORY FACC, ALI FACP CCDS Ot E78.5 HYPERLIPIDEMIA, UNSPECIFIED 09/15/2018 JOHAN MARTIN, ALI FACP CCDS Ot G47.33 OBSTRUCTIVE SLEEP APNEA (ADULT) (PEDIATR 09/15/2018 JOHAN GREGORY FACC, ALI FACP CCDS Ot I10 ESSENTIAL (PRIMARY) HYPERTENSION 09/15/2018 JOHAN GREGORY FACC, ALI FACP CCDS Ot 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 09/15/2018 JOHAN GREGORY FACC, ALI FACP CCDS Ot I65.23 OCCLUSION AND STENOSIS OF BILATERAL SADLER 09/15/2018 JOHAN GREGORY FACC, ALI FACP CCDS Ot Z95.1 PRESENCE OF AORTOCORONARY BYPASS GRAFT 10/05/2018 JOHAN GREGORY FACC, CITLALI FACP CCDS Ot E66.9 OBESITY, UNSPECIFIED 10/05/2018 JOHAN GREGORY FACC, ALI FACP CCDS Ot E78.5 HYPERLIPIDEMIA, UNSPECIFIED 10/05/2018 JOHAN GREGORY FACC, ALI FACP CCDS Ot G47.33 OBSTRUCTIVE SLEEP APNEA (ADULT) (PEDIATR 10/05/2018 JOHAN GREGORY FACC, ALI FACP CCDS Ot I10 ESSENTIAL (PRIMARY) HYPERTENSION 10/05/2018 JOHAN GREGORY FACC, ALI FACP CCDS Ot 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 10/05/2018 JOHAN GREGORY FACC, ALI FACP CCDS Ot I65.23 OCCLUSION AND STENOSIS OF BILATERAL SADLER 10/05/2018 JOHAN GREGORY FACC, CITLALI FACP CCDS Ot Z95.1 PRESENCE OF AORTOCORONARY BYPASS GRAFT Procedures There is no data. Results Test Result Range Automated blood complete blood count (hemogram) panel - 01/22/16 07:15 Blood leukocytes automated count (number/volume) 11.7 10*3/uL 4.3-11.0 Blood erythrocytes automated count (number/volume) 5.08 10*6/uL 4.35-5.85 Venous blood hemoglobin measurement (mass/volume) 14.5 g/dL 11.5-16.0 Blood hematocrit (volume fraction) 44 % 35-52 Automated erythrocyte mean corpuscular volume 87 [foz_us] 80-99 Automated erythrocyte mean corpuscular hemoglobin (mass per erythrocyte) 29 pg 25-34 Automated erythrocyte mean corpuscular hemoglobin concentration measurement ( mass/volume) 33 g/dL 32-36 Automated erythrocyte distribution width ratio 14.4 % 10.0-14.5 Automated blood platelet count (count/volume) 351 10*3/uL 130-400 Automated blood platelet mean volume measurement 9.9 [foz_us] 7.4-10.4 PT panel in platelet poor plasma by coagulation assay - 01/22/16 07:15 Prothrombin time (PT) in platelet poor plasma by coagulation assay 12.4 s 12.2-14.7 INR in platelet poor plasma or blood by coagulation assay 1.0 0.8-1.4 Activated partial thromboplastin time (aPTT) in platelet poor plasma bycoagulation assay - 01/22/16 07:15 Activated partial thromboplastin time (aPTT) in platelet poor plasma bycoagulation assay 22 s 24-35 Comprehensive metabolic panel - 01/22/16 07:15 Serum or plasma sodium measurement (moles/volume) 140 mmol/L 135-145 Serum or plasma potassium measurement (moles/volume) 4.3 mmol/L 3.6-5.0 Serum or plasma chloride measurement (moles/volume) 104 mmol/L 98-107 Carbon dioxide 25 mmol/L 21-32 Serum or plasma anion gap determination (moles/volume) 11 mmol/L 5-14 Serum or plasma urea nitrogen measurement (mass/volume) 17 mg/dL 7-18 Serum or plasma creatinine measurement (mass/volume) 1.02 mg/dL 0.60-1.30 Serum or plasma urea nitrogen/creatinine mass ratio 17 NRG Serum or plasma creatinine measurement with calculation of estimated glomerular filtration rate 54 NRG Serum or plasma glucose measurement (mass/volume) 114 mg/dL 70-105 Serum or plasma calcium measurement (mass/volume) 9.5 mg/dL 8.5-10.1 Serum or plasma total bilirubin measurement (mass/volume) 0.7 mg/dL 0.1-1.0 Serum or plasma alkaline phosphatase measurement (enzymatic activity/volume) 108 U/L 40-136 Serum or plasma aspartate aminotransferase measurement (enzymatic activity/ volume) 22 U/L 5-34 Serum or plasma alanine aminotransferase measurement (enzymatic activity/volume ) 22 U/L 0-55 Serum or plasma protein measurement (mass/volume) 8.1 g/dL 6.4-8.2 Serum or plasma albumin measurement (mass/volume) 4.2 g/dL 3.2-4.5 Lipid 1996 panel - 01/22/16 07:15 Serum or plasma triglyceride measurement (mass/volume) 200 mg/dL <150 Serum or plasma cholesterol measurement (mass/volume) 180 mg/dL < 200 Serum or plasma cholesterol in HDL measurement (mass/volume) 39 mg/ dL 40-60 Cholesterol in LDL [mass/volume] in serum or plasma by direct assay 117 mg/dL 1-129 Serum or plasma cholesterol in VLDL measurement (mass/volume) 40 mg/ dL 5-40 Methicillin resistant Staphylococcus aureus (MRSA) screening culture - 07:15 Methicillin resistant Staphylococcus aureus (MRSA) screening culture NEG NRG Complete blood count (CBC) with automated white blood cell (WBC) differential - 11/18/16 09:50 Blood leukocytes automated count (number/volume) 8.7 10*3/uL 4.3-11.0 Blood erythrocytes automated count (number/volume) 4.59 10*6/uL 4.35-5.85 Venous blood hemoglobin measurement (mass/volume) 13.2 g/dL 11.5-16.0 Blood hematocrit (volume fraction) 41 % 35-52 Automated erythrocyte mean corpuscular volume 90 [foz_us] 80-99 Automated erythrocyte mean corpuscular hemoglobin (mass per erythrocyte) 29 pg 25-34 Automated erythrocyte mean corpuscular hemoglobin concentration measurement ( mass/volume) 32 g/dL 32-36 Automated erythrocyte distribution width ratio 14.1 % 10.0-14.5 Automated blood platelet count (count/volume) 340 10*3/uL 130-400 Automated blood platelet mean volume measurement 9.7 [foz_us] 7.4-10.4 Automated blood neutrophils/100 leukocytes 72 % 42-75 Automated blood lymphocytes/100 leukocytes 13 % 12-44 Blood monocytes/100 leukocytes 8 % 0-12 Automated blood eosinophils/100 leukocytes 7 % 0-10 Automated blood basophils/100 leukocytes 1 % 0-10 Blood neutrophils automated count (number/volume) 6.2 10*3 1.8-7.8 Blood lymphocytes automated count (number/volume) 1.1 10*3 1.0-4.0 Blood monocytes automated count (number/volume) 0.7 10*3 0.0-1.0 Automated eosinophil count 0.6 10*3/uL 0.0-0.3 Automated blood basophil count (count/volume) 0.0 10*3/uL 0.0-0.1 PT panel in platelet poor plasma by coagulation assay - 11/18/16 09:50 Prothrombin time (PT) in platelet poor plasma by coagulation assay 13.3 s 12.2-14.7 INR in platelet poor plasma or blood by coagulation assay 1.0 0.8-1.4 Activated partial thromboplastin time (aPTT) in platelet poor plasma bycoagulation assay - 11/18/16 09:50 Activated partial thromboplastin time (aPTT) in platelet poor plasma bycoagulation assay 28 s 24-35 Comprehensive metabolic panel - 11/18/16 09:50 Serum or plasma sodium measurement (moles/volume) 143 mmol/L 135-145 Serum or plasma potassium measurement (moles/volume) 4.1 mmol/L 3.6-5.0 Serum or plasma chloride measurement (moles/volume) 106 mmol/L 98-107 Carbon dioxide 26 mmol/L 21-32 Serum or plasma anion gap determination (moles/volume) 11 mmol/L 5-14 Serum or plasma urea nitrogen measurement (mass/volume) 12 mg/dL 7-18 Serum or plasma creatinine measurement (mass/volume) 1.12 mg/dL 0.60-1.30 Serum or plasma urea nitrogen/creatinine mass ratio 11 0 -20 Serum or plasma creatinine measurement with calculation of estimated glomerular filtration rate 48 NRG Serum or plasma glucose measurement (mass/volume) 106 mg/dL 70-105 Serum or plasma calcium measurement (mass/volume) 9.3 mg/dL 8.5-10.1 Serum or plasma total bilirubin measurement (mass/volume) 0.8 mg/dL 0.1-1.0 Serum or plasma alkaline phosphatase measurement (enzymatic activity/volume) 106 U/L 40-136 Serum or plasma aspartate aminotransferase measurement (enzymatic activity/ volume) 16 U/L 5-34 Serum or plasma alanine aminotransferase measurement (enzymatic activity/volume ) 16 U/L 0-55 Serum or plasma protein measurement (mass/volume) 7.8 g/dL 6.4-8.2 Serum or plasma albumin measurement (mass/volume) 4.1 g/dL 3.2-4.5 Magnesium - 11/18/16 09:50 Magnesium 2.0 mg/dL 1.8-2.4 Serum or plasma troponin i.cardiac measurement (mass/volume) - 11/18/16 09:50 Serum or plasma troponin i.cardiac measurement (mass/volume) < ng/ mL <0.30 Myoglobin, serum - 11/18/16 09:50 Myoglobin, serum 40.1 ng/mL 10.0-92.0 Complete urinalysis with reflex to culture - 05/02/17 19:30 Urine color determination YELLOW NRG Urine clarity determination SLIGHTLY CLOUDY NRG Urine pH measurement by test strip 5 5-9 Specific gravity of urine by test strip 1.025 1.016- 1.022 Urine protein assay by test strip, semi-quantitative 2+ NEGATIVE Urine glucose detection by automated test strip NEGATIVE NEGATIVE Erythrocytes detection in urine sediment by light microscopy 1+ NEGATIVE Urine ketones detection by automated test strip NEGATIVE NEGATIVE Urine nitrite detection by test strip NEGATIVE NEGATIVE Urine total bilirubin detection by test strip 1+ NEGATIVE Urine urobilinogen measurement by automated test strip (mass/volume) NORMAL NORMAL Urine leukocyte esterase detection by dipstick 3+ NEGATIVE Automated urine sediment erythrocyte count by microscopy (number/high power field) [HPF] NRG Automated urine sediment leukocyte count by microscopy (number/high power field ) [HPF] NRG Bacteria detection in urine sediment by light microscopy FEW NRG Squamous epithelial cells detection in urine sediment by light microscopy >50 NRG Crystals detection in urine sediment by light microscopy PRESENT NRG Casts detection in urine sediment by light microscopy NONE NRG Mucus detection in urine sediment by light microscopy NEGATIVE NRG Complete urinalysis with reflex to culture YES NRG Amorphous sediment detection in urine sediment by light microscopy FEW GRECIA URATES NRG Bacterial urine culture - 05/02/17 19:30 Bacterial urine culture [id number] NRG COLONY COUNT <10,000 NRG FTX;REPORTABLE NO FURTHER STUDIES UNLESS REQUESTED NRG URINE CULTURE RESULTS PLUS NRG Complete blood count (CBC) with automated white blood cell (WBC) differential - 05/02/17 19:35 Blood leukocytes automated count (number/volume) 13.7 10*3/uL 4.3-11.0 Blood erythrocytes automated count (number/volume) 5.04 10*6/uL 4.35-5.85 Venous blood hemoglobin measurement (mass/volume) 14.0 g/dL 11.5-16.0 Blood hematocrit (volume fraction) 43 % 35-52 Automated erythrocyte mean corpuscular volume 85 [foz_us] 80-99 Automated erythrocyte mean corpuscular hemoglobin (mass per erythrocyte) 28 pg 25-34 Automated erythrocyte mean corpuscular hemoglobin concentration measurement ( mass/volume) 33 g/dL 32-36 Automated erythrocyte distribution width ratio 15.1 % 10.0-14.5 Automated blood platelet count (count/volume) 396 10*3/uL 130-400 Automated blood platelet mean volume measurement 9.7 [foz_us] 7.4-10.4 Automated blood neutrophils/100 leukocytes 91 % 42-75 Automated blood lymphocytes/100 leukocytes 4 % 12-44 Blood monocytes/100 leukocytes 4 % 0-12 Automated blood eosinophils/100 leukocytes 1 % 0-10 Automated blood basophils/100 leukocytes 0 % 0-10 Blood neutrophils automated count (number/volume) 12.5 10*3 1.8-7.8 Blood lymphocytes automated count (number/volume) 0.5 10*3 1.0-4.0 Blood monocytes automated count (number/volume) 0.6 10*3 0.0-1.0 Automated eosinophil count 0.1 10*3/uL 0.0-0.3 Automated blood basophil count (count/volume) 0.0 10*3/uL 0.0-0.1 Blood manual differential performed detection - 05/02/17 19:35 Blood monocytes/100 leukocytes 2 % NRG Manual blood segmented neutrophils/100 leukocytes 81 % NRG Blood band neutrophils/100 leukocytes 12 % NRG Manual blood lymphocytes/100 leukocytes 5 % NRG Manual eosinophils/100 leukocytes in nose 0 % NRG Manual blood basophils/100 leukocytes 0 % NRG Blood erythrocyte morphology finding identification NORMAL NR Comprehensive metabolic panel - 05/02/17 19:35 Serum or plasma sodium measurement (moles/volume) 137 mmol/L 135-145 Serum or plasma potassium measurement (moles/volume) 4.2 mmol/L 3.6-5.0 Serum or plasma chloride measurement (moles/volume) 102 mmol/L 98-107 Carbon dioxide 22 mmol/L 21-32 Serum or plasma anion gap determination (moles/volume) 13 mmol/L 5-14 Serum or plasma urea nitrogen measurement (mass/volume) 17 mg/dL 7-18 Serum or plasma creatinine measurement (mass/volume) 1.04 mg/dL 0.60-1.30 Serum or plasma urea nitrogen/creatinine mass ratio 16 NRG Serum or plasma creatinine measurement with calculation of estimated glomerular filtration rate 53 NRG Serum or plasma glucose measurement (mass/volume) 109 mg/dL 70-105 Serum or plasma calcium measurement (mass/volume) 9.3 mg/dL 8.5-10.1 Serum or plasma total bilirubin measurement (mass/volume) 1.1 mg/dL 0.1-1.0 Serum or plasma alkaline phosphatase measurement (enzymatic activity/volume) 105 U/L 40-136 Serum or plasma aspartate aminotransferase measurement (enzymatic activity/ volume) 24 U/L 5-34 Serum or plasma alanine aminotransferase measurement (enzymatic activity/volume ) 18 U/L 0-55 Serum or plasma protein measurement (mass/volume) 9.1 g/dL 6.4-8.2 Serum or plasma albumin measurement (mass/volume) 4.0 g/dL 3.2-4.5 Serum or plasma amylase measurement (enzymatic activity/volume) - 05/02/17 19: 35 Serum or plasma amylase measurement (enzymatic activity/volume) 56 U /L 25-125 Lipase - 05/02/17 19:35 Lipase 37 U/L 8-78 Encounters ACCT No. Visit Date/Time Discharge Status Pt. Type Provider Facility Loc./Unit Complaint [id number] 09/14/2018 07:41:00 09/14/2018 23:59:59 CLS Outpatient JOHAN GREGORY FACC, ALI FACP CCDS [facility] CARD CAD, HYPERLIPIDEMIA [id number] 05/02/2017 19:16:00 05/02/2017 20:44:00 DIS Emergency MAGALIE MARTIN DO [facility] ER VOMITING,DIARRHEA [id number] 03/17/2017 10:36:00 03/17/2017 23:59:59 CLS Outpatient JOHAN GREGORY FACC, ALI FACP CCDS [facility] CARD CAD [id number] 11/18/2016 09:42:00 11/18/2016 11:09:00 DIS Emergency NATALIO KATHLEEN MD [facility] ER CHEST PAIN [id number] 01/22/2016 06:42:00 01/22/2016 12:45:00 DIS Outpatient JOHAN GREGORY FACC, CITLALI FACP CCDS [facility] CATH CAD,SCB, FATIGUE,HTN [id number] 04/25/2014 07:34:00 04/25/2014 23:59:59 CLS Outpatient JOHAN GREGORY FACC, ALI FACP CCDS [facility] CARD STATUS POST CABG,CP,DYSPNEA, HTN [id number] 05/20/2013 09:02:00 05/20/2013 23:59:59 CLS Outpatient JOHAN GREGORY FACC, ALI FACP CCDS [facility] CARD HTN [id number] 02/10/2013 12:07:00 02/10/2013 23:59:59 CLS Outpatient SHAMIKA ABEBE [facility] RAD REDNESS,SWELLING RT LOWER EXT,PAIN [id number] 01/24/2013 14:00:00 01/24/2013 22:15:00 DIS Outpatient JOHAN GREGORY FACC, CITLALI ROSARIO CCDS [facility] CATH ANGINA,CAD,HL ,HTN [id number] 08/15/2014 06:40:00 Document Registration [id number] 07/31/2014 11:20:00 Document Registration [id number] 08/24/2012 08:54:00 Document Registration [id number] 06/30/2012 14:42:00 Document Registration [id number] 04/16/2017 15:00:00 04/16/2017 23:59:59 CLS Outpatient [facility] [place]
[2018-10-21] MEDS ORDERED: ASPIRIN 81 MG CHEW (CHILDREN'S ASA) PO ONE (12:30)
[2018-10-21] MEDS ORDERED: NITROGLYCERIN 0.4 MG SL TABS BTL 25'S SL PRN (12:30)
[2018-10-21 12:33] LABS: BASOPHILS # (AUTO) 0.1 10^3/uL (0.0-0.1); BASOPHILS % (AUTO) 1 % (0-10); EOSINOPHILS # (AUTO) 0.9 10^3/uL (0.0-0.3); EOSINOPHILS % (AUTO) 9 % (0-10); HEMATOCRIT 40 % (35-52); LYMPHOCYTES # (AUTO) 1.1 X 10^3 (1.0-4.0); LYMPHOCYTES % (AUTO) 11 % (12-44); MEAN CORPUSCULAR HEMOGLOBIN 29 PG (25-34); MEAN CORPUSCULAR HGB CONC 32 G/DL (32-36); MEAN CORPUSCULAR VOLUME 89 FL (80-99); MEAN PLATELET VOLUME 9.9 FL (7.4-10.4); MONOCYTES # (AUTO) 0.8 X 10^3 (0.0-1.0); MONOCYTES % (AUTO) 8 % (0-12); NEUTROPHILS # (AUTO) 7.8 X 10^3 (1.8-7.8); NEUTROPHILS % (AUTO) 73 % (42-75); PLATELET COUNT 309 10^3/uL (130-400); RED CELL DISTRIBUTION WIDTH 14.8 % (10.0-14.5); WHITE BLOOD COUNT 10.7 10^3/uL (4.3-11.0)
[2018-10-21 12:51] LABS: FIBRIN DEGRADATION PRODUCTS 0.51 UG/ML (0.00-0.49); PROTHROMBIN TIME PATIENT 13.5 SEC (12.2-14.7)
[2018-10-21] MEDS ORDERED: ONDANSETRON 4 MG/2 ML (SDV) Z0FRAN ONE (12:53)
[2018-10-21 12:56] LABS: ALANINE AMINOTRANSFERASE 24 U/L (0-55); ALKALINE PHOSPHATASE 85 U/L (40-136); BILIRUBIN,TOTAL 0.4 MG/DL (0.1-1.0); BUN/CREATININE RATIO 19; CALCIUM 8.9 MG/DL (8.5-10.1); CARBON DIOXIDE 22 MMOL/L (21-32); CHLORIDE 107 MMOL/L (98-107); CREATININE SERUM 1.03 MG/DL (0.60-1.30); GFR ESTIMATED 53; GLUCOSE 112 MG/DL (70-105); MAGNESIUM 1.8 MG/DL (1.8-2.4); POTASSIUM 3.9 MMOL/L (3.6-5.0); SODIUM 141 MMOL/L (135-145); TOTAL PROTEIN 7.9 GM/DL (6.4-8.2)
--- NOTE | 2018-10-21 12:57 | NUR ---
PT STATED NAUSEA AFTER MORPHINE WAS GIVEN. RETURNED TO WITH ZOFRAN 4 MG BUT PT STATED THAT SHE WAS FEELING BETTER AND DECLINED ZOFRAN AT THIS TIME.
--- NOTE | 2018-10-21 12:58 | Diagnostic Imaging Report ---
Indication: Left arm pain and paresthesia Portable chest 12:52 PM There are postop changes from CABG surgery. Heart size is mildly enlarged. Pulmonary vascularity is normal. Lungs are clear. Impression: Postsurgical changes in the chest. There is cardiomegaly without evidence of pulmonary venous hypertension. Dictated by: Dictated on workstation # [id number]
[2018-10-21] MEDS ORDERED: morphine INJ 10 MG/ML 1ML (SYR OR VIAL) IVP ONE (13:00)
[2018-10-21] MEDS ORDERED: ONDANSETRON 4 MG/2 ML (SDV) Z0FRAN IVP ONE (13:00)
--- NOTE | 2018-10-21 13:06 | NUR ---
PT STATES PAIN IN SHOULDER/NECK IS GONE BUT IS HAVING PAIN IN HER STOMACH, ZOFRAN GIVEN.
--- NOTE | 2018-10-21 13:10 | ED Chest Pain ---
General Chief Complaint: Chest Pain Stated Complaint: L ARM PAIN/TINGLING Nursing Triage Note: PT STATES SHOULDER PAIN FOR ABOUT A WEEK, WORSE SINCE YESTERDAY, PAIN MORE IN LT NECK/SHOULDER AREA. NUMBNESS/TINGLING. PT OUT OF BREATH FROM WALKING TO RM, STATES THIS IS NORMAL. Nursing Sepsis Screen: No Definite Risk Source: patient Exam Limitations: no limitations History of Present Illness Date Seen by Provider: October 21, 2018 Time Seen by Provider: 12:19 Initial Comments Here with report of left shoulder pain about a week it's worse since yesterday. States that it is a pressure and numbness. Patient became significantly dyspneic walking into the room and had an initial O2 sat of 82% on room air. She states that is not typical for her. Denies nausea or vomiting. Was mildly diaphoretic with the respiratory distress was having. Timing/Duration: 1 week, getting worse, intermittent Severity/Quality: moderate, aching, pressure Location: shoulder Radiation: arms Activities at Onset: none Prior CP/Workup: cardiac cath, echocardiography, stress test Modifying Factors: improves with oxygen, improves with rest ASA po DISTRIBUTION FIELD TECHNICIAN: Yes (81 mg) NTG SL DISTRIBUTION FIELD TECHNICIAN: No Associated Symptoms: No abdominal pain; diaphoresis; No dizziness, No fever/ chills, No nausea/vomiting; shortness of breath, weakness Allergies and Home Medications Allergies Coded Allergies: ciprofloxacin (Unverified Allergy, Unknown, 07/31/14) cortisone (Verified Allergy, Unknown, 08/24/12) lovastatin (Unverified Allergy, Unknown, 01/22/16) ALLERGY LISTED ON SALARY AND WAGE ADMINISTRATOR ORDER 01/22/16 Home Medications Amlodipine Besylate 10 Mg Tablet, 10 MG PO DAILY Prescribed by: CITLALI PRADO on 01/22/16 0947 Aspirin 81 Mg Tablet.dr, 81 MG PO DAILY, (Reported) Atorvastatin Calcium 40 Mg Tablet, 40 MG PO DAILY, (Reported) Clopidogrel Bisulfate 75 Mg Tablet, 75 MG PO DAILY, (Reported) Metoprolol Tartrate 50 Mg Tablet, 50 MG PO BID, (Reported) Nitrofurantoin Monohyd/M-Cryst 100 Mg Capsule, 100 MG PO BID Prescribed by: MAGALIE MARTIN on 05/02/172040 Ondansetron 4 Mg Tab.rapdis, 4 MG PO Q4H Prescribed by: MAGALIE MARTIN on 05/02/172040 Patient Home Medication List Home Medication List Reviewed: Yes Review of Systems Review of Systems Constitutional: see HPI; No chills, No fever EENTM: No Symptoms Reported Respiratory: Denies Cough; Shortness of Air Cardiovascular: Denies Edema, Denies Palpitations Gastrointestinal: Denies Nausea, Denies Vomiting Genitourinary: No Symptoms Reported Musculoskeletal: see HPI, joint pain, muscle pain, muscle stiffness Skin: no symptoms reported Psychiatric/Neurological: No Symptoms Reported All Other Systems Reviewed Negative Unless Noted: Yes Past Bhqlcsi-Loajui-Gspdlg Hx Past Med/Social Hx: Reviewed Nursing Past Med/Soc Hx Patient Social History Alcohol Use: Denies Use Recreational Drug Use: No Smoking Status: Never a Smoker 2nd Hand Smoke Exposure: No Recent Foreign Travel: No Contact w/Someone Who Travel: No Recent Infectious Disease Expo: No Recent Hopitalizations: No Immunizations Up To Date Date of Pneumonia Vaccine: Feb 15, 2014 Seasonal Allergies Seasonal Allergies: Yes Past Medical History Surgeries: Yes Abdominal, Appendectomy, Cardiac, CABG, Coronary Stent, Gallbladder, Hysterectomy, Joint Replacement, Orthopedic, Tonsillectomy, Tubal Ligation Respiratory: Yes Sleep Apnea, COPD Currently Using CPAP: Yes Currently Using BIPAP: No Cardiac: Yes (CABG AND STENT X 1) Coronary Artery Disease, Heart Attack, High Cholesterol, Hypertension Neurological: No 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: Hysterectomy, Tubal Ligation, Menopausal Genitourinary: No Gastrointestinal: Yes (HIATAL HERNIA/INGUINAL HERNIA--S/P REPAIRS; S/P YIMI) Abdominal Hernia, Gastroesophageal Reflux, Hiatal Hernia, Gall Bladder Disease Musculoskeletal: Yes (S/P BILATEARL KNEE REPLACEMENT) Arthritis Endocrine: No HEENT: No Cancer: No Psychosocial: No Integumentary: No Blood Disorders: No Family Medical History Reviewed Nursing Family Hx No Pertinent Family Hx Physical Exam Vital Signs Vital Signs - First Documented 10/21/18 10/21/18 12:20 12:22 Temp 98.1 Pulse 61 Resp 22 B/P (MAP) 176/100 (125) Pulse Ox 95 O2 Delivery Nasal Cannula O2 Flow Rate 2.00 Capillary Refill : Less Than 3 Seconds Height, Weight, BMI Height: 4'11.00" Weight: 246lbs. 0.0oz. 111.731647dj; 53.5 BMI Method:Stated General Appearance: WD/WN, Mild Distress (respiratory), Obese HEENT: PERRL/EOMI, Pharynx Normal Neck: Non Tender, Supple Respiratory: Lungs Clear, Normal Breath Sounds Cardiovascular: Regular Rate, Rhythm, No Murmur Gastrointestinal: Non Tender, Soft Extremity: Normal Range of Motion, Non Tender Neurologic/Psychiatric: Alert, Oriented x3 Skin: Normal Color, Warm/Dry Progress/Results/Core Measures Results/Orders Lab Results Laboratory Tests Test 10/21/18 12:25 Range/Units White Blood Count 10.7 4.3-11.0 10^3/uL Red Blood Count 4.53 4.35-5.85 10^6/uL Hemoglobin 13.0 11.5-16.0 G/DL Hematocrit 40 35-52 % Mean Corpuscular Volume 89 80-99 FL Mean Corpuscular Hemoglobin 29 25-34 PG Mean Corpuscular Hemoglobin Concent 32 32-36 G/DL Red Cell Distribution Width 14.8 H 10.0-14.5 % Platelet Count 309 130-400 10^3/uL Mean Platelet Volume 9.9 7.4-10.4 FL Neutrophils (%) (Auto) 73 42-75 % Lymphocytes (%) (Auto) 11 L 12-44 % Monocytes (%) (Auto) 8 0-12 % Eosinophils (%) (Auto) 9 0-10 % Basophils (%) (Auto) 1 0-10 % Neutrophils # (Auto) 7.8 1.8-7.8 X 10^3 Lymphocytes # (Auto) 1.1 1.0-4.0 X 10^3 Monocytes # (Auto) 0.8 0.0-1.0 X 10^3 Eosinophils # (Auto) 0.9 H 0.0-0.3 10^3/uL Basophils # (Auto) 0.1 0.0-0.1 10^3/uL Prothrombin Time 13.5 12.2-14.7 SEC INR Comment 1.0 0.8-1.4 Activated Partial Thromboplast Time 30 24-35 SEC D-Dimer 0.51 H 0.00-0.49 UG/ML Sodium Level 141 135-145 MMOL/L Potassium Level 3.9 3.6-5.0 MMOL/L Chloride Level 107 98-107 MMOL/L Carbon Dioxide Level 22 21-32 MMOL/L Anion Gap 12 5-14 MMOL/L Blood Urea Nitrogen 20 H 7-18 MG/DL Creatinine 1.03 0.60-1.30 MG/DL Estimat Glomerular Filtration Rate 53 BUN/Creatinine Ratio 19 Glucose Level 112 H 70-105 MG/DL Calcium Level 8.9 8.5-10.1 MG/DL Corrected Calcium 8.9 8.5-10.1 MG/DL Magnesium Level 1.8 1.8-2.4 MG/DL Total Bilirubin 0.4 0.1-1.0 MG/DL Aspartate Amino Transf (AST/SGOT) 23 5-34 U/L Alanine Aminotransferase (ALT/SGPT) 24 0-55 U/L Alkaline Phosphatase 85 40-136 U/L Myoglobin 56.0 10.0-92.0 NG/ML Troponin I < 0.028 <0.028 NG/ML B-Type Natriuretic Peptide 101.5 H <100.0 PG/ML Total Protein 7.9 6.4-8.2 GM/DL Albumin 4.0 3.2-4.5 GM/DL My Orders Orders - PRIMO VALDIVIA MD Cbc With Automated Diff (10/21/18:) Magnesium (10/21/18:) Chest 1 View, Ap/Pa Only (10/21/18:) Ekg Tracing (10/21/18:) Cardiac Profile 1 (10/21/18) Comprehensive Metabolic Panel (10/21/18) Myoglobin Serum (10/21/18:) Protime With Inr (10/21/18:) Partial Thromboplastin Time (10/21/18:) O2 (10/21/18:) Monitor-Rhythm Ecg Trace Only (10/21/18) Lipid Panel (10/22/18 06:00) Ed Iv/Invasive Line Start (10/21/18:) BNP (10/21/18:) Nitroglycerin 0.4 Mg Btl 25's (Nitrostat (10/21/18 12:30) Aspirin Chewable Tablet (Baby Aspirin Ch (10/21/18 12:30) Fibrin Degradation Products (10/21/18 12:25) Morphine Injection (Morphine Injection (10/21/18 13:00) Ondansetron Injection (Zofran Injectio (10/21/18 13:00) Ondansetron Injection (Zofran Injectio (10/21/18 12:53) Shoulder, Left, 3 Views (10/21/18 13:42) Ketorolac Injection (Toradol Injection) (10/21/18 13:43) Albuterol/Ipra Inhalation Soln (Duoneb I (10/21/18 14:00) Svn Small Volume Nebulizer (10/21/18 13:48) Albuterol Pre-Mix Nebs (Rt) (Proventil (10/21/18 14:38) Albuterol Pre-Mix Nebs (Rt) (Proventil (10/21/18 14:40) Svn Small Volume Nebulizer (10/21/18 14:40) Albuterol Pre-Mix Nebs (Rt) (Proventil (10/21/18 15:06) Ipratropium 0.02% Neb Solution (Atrovent (10/21/18 15:15) Methylprednisolone Sod Succ (Solu-Medrol (10/21/18 15:06) Svn Small Volume Nebulizer (10/21/18 15:06) Svn Small Volume Nebulizer (10/21/18 15:06) Medications Given in ED Current Medications Medications Dose Ordered Sig/Ivy Route Start Time Stop Time Status Last Admin Dose Admin Albuterol/ Ipratropium 3 ml ONCE ONCE INH 10/21/18 14:00 10/21/18 14:01 DC 10/21/18 13:57 3 ML Aspirin 324 mg ONCE ONCE PO 10/21/18 12:30 10/21/18 12:31 DC 10/21/18 12:34 324 MG Morphine Sulfate 2 mg ONCE ONCE IVP 10/21/18 13:00 10/21/18 13:01 DC 10/21/18 12:52 2 MG Nitroglycerin 0.4 mg UD PRN SL 10/21/18 12:30 10/21/18 12:34 0.4 MG Ondansetron HCl 4 mg ONCE ONCE IVP 10/21/18 13:00 10/21/18 13:01 DC 10/21/18 13:05 4 MG Vital Signs/I&O 10/21/18 10/21/18 10/21/18 10/21/18 12:20 12:22 12:52 13:52 Temp 98.1 98.1 98.1 Pulse 61 Resp 22 B/P (MAP) 176/100 (125) Pulse Ox 95 95 O2 Delivery Nasal Cannula Nasal Cannula O2 Flow Rate 2.00 10/21/18 10/21/18 10/21/18 10/21/18 13:57 14:48 14:53 14:58 Pulse Ox 99 99 94 88 O2 Delivery Nasal Cannula Nasal Cannula Room Air Room Air O2 Flow Rate 3.00 3.00 10/21/18 15:15 Pulse Ox 99 O2 Delivery Nasal Cannula Blood Pressure Mean: 125 Progress Progress Note : Progress Note Seen and evaluated. IV, labs, chest x-ray and EKG ordered. ASA 324 mg by mouth and a sublingual ordered. Monitor patient. Sublingual nitroglycerin did not change the pain and blood pressure dropped to 170 systolic to 140 systolic. Morphine 2 mg IV given. This did cause some nausea and Zofran was ordered. Her nausea resolved prior to Zofran administration so that was held. Monitor patient. Patient given DuoNeb treatment. This was followed by 3 albuterol treatments. This did somewhat help out her breathing. Pain has completely resolved. X-ray of the left shoulder ordered. The patient ultimately needed hour -long breathing treatment as she is still requiring oxygen. I did discuss the case with Dr. Márquez at 1618 and she accepts patient for admission, inpatient status. Patient was given Solu-Medrol 125 mg IV and tolerated that without difficulty. She does have history of cortisone allergy in which she passed out after a shot. She tolerated Solu-Medrol without problems and we will continue that inpatient as well as RT not protocol. All of this was discussed with the patient who agrees with plan. Admit inpatient status. Initial ECG Impression Date: October 21, 2018 Initial ECG Impression Time: 12:28 Initial ECG Rate: 60 Initial ECG Rhythm: Normal Sinus Comment Sinus rhythm with normal axis. No evidence of ST elevation SD. Similar to and 08/15/14. Interpreted by me. Diagnostic Imaging Diagonstic Imaging: Xray Plain Films/CT/US/NM/MRI: chest Comments [facility] [place] NAME: HECTORSTALIN MED REC#: [id number] PT STATUS: REG ER : 1950 PHYSICIAN: PRIMO VALDIVIA MD ADMIT DATE: 10/21/18/ER Draft Date of Exam:10/21/18 CHEST 1 VIEW, AP/PA ONLY Indication: Left arm pain and paresthesia Portable chest 12:52 PM There are postop changes from CABG surgery. Heart size is mildly enlarged. Pulmonary vascularity is normal. Lungs are clear. Impression: Postsurgical changes in the chest. There is cardiomegaly without evidence of pulmonary venous hypertension. Dictated on workstation # [id number] Dict: 10/21/18 1256 Trans: 10/21/18 1257 [facility] [id number] Interpreted by: PRIMO CRUZ MD Electronically signed by: Omar Imaging: Xray Plain Films/CT/US/NM/MRI: other Comments [facility], [place] NAME: STALIN YOUNG [facility] REC#: [id number] PT STATUS: REG ER : 1950 PHYSICIAN: PRIMO VALDIVIA MD ADMIT DATE: 10/21/18/ER Draft Date of Exam:10/21/18 SHOULDER, LEFT, 3 VIEWS INDICATION: Left shoulder pain for one week. COMPARISON: None available. TECHNIQUE: Three views of the left shoulder were obtained. FINDINGS: Examination is mildly limited due to patient's large body habitus. Allowing for this, there is no dislocation of the glenohumeral or acromioclavicular joints. No discrete fracture appreciated. Subacromial space is grossly preserved. No abnormal soft tissue mineralizations. IMPRESSION: No acute fracture or traumatic malalignment of the left shoulder. Dictated on workstation # [id number] Dict: 10/21/18 1446 Trans: 10/21/18 1450 [facility] [id number] Interpreted by: MICHELINE CONKLIN MD Electronically signed by: Departure Communication (Admissions) Time/Spoke to Admitting Phy: 16:18 Impression Primary Impression: COPD with acute exacerbation Additional Impression: Hypoxia Disposition: ADMITTED INPATIENT Condition: Stable Admissions Decision to Admit Reason: Admit from ER (General) Decision to Admit/Date: October 21, 2018 Time/Decision to Admit Time: 16:18 Departure-Patient Inst. Referrals: ANTONINO FERRELL (PCP/Family) Primary Care Physician PRIMO VALDIVIA MD October 21, 2018 13:10
[2018-10-21] MEDS ORDERED: KETOROLAC 30 MG/ML VIAL IVP STA (13:43)
[2018-10-21] MEDS ORDERED: RT-ALBUTEROL/IPRATROPIUM 3 ML (DUONEB) VIAL INH ONE (14:00)
[2018-10-21] MEDS ORDERED: RT-ALBUTEROL SULF 2.5 MG/3 ML PRE-MIX VIAL ONE (14:38)
[2018-10-21] MEDS ORDERED: RT-ALBUTEROL SULF 2.5 MG/3 ML PRE-MIX VIAL INH STA ×2 (14:40→15:06)
--- NOTE | 2018-10-21 14:51 | Diagnostic Imaging Report ---
INDICATION: Left shoulder pain for one week. COMPARISON: None available. TECHNIQUE: Three views of the left shoulder were obtained. FINDINGS: Examination is mildly limited due to patient's large body habitus. Allowing for this, there is no dislocation of the glenohumeral or acromioclavicular joints. No discrete fracture appreciated. Subacromial space is grossly preserved. No abnormal soft tissue mineralizations. IMPRESSION: No acute fracture or traumatic malalignment of the left shoulder. Dictated by: Dictated on workstation # [id number]
[2018-10-21] MEDS ORDERED: methylPREDNISolone 125 MG (Solu-MEDROL) VIAL IV STA (15:06)
[2018-10-21] MEDS ORDERED: RT-IPRATROPIUM (ATROVENT) 0.5MG/2.5ML AMP IH ONE (15:15)
--- NOTE | 2018-10-21 16:30 | NUR ---
STALIN YOUNG admitted to room 416-1, with an admitting diagnosis of COPD, on 10/21/18 from ED via , accompanied by STAFF. STALIN YOUNG introduced to surroundings, call light, bed controls, phone, TV, temperature control, lights, meal times, smoking policy, visitor policy, side rail policy, bathrooms and showers. HECTORSTALIN Viral verbalizes understanding that [facility] is not responsible for the loss or damage to any personal effects or valuables that are kept in the patients posession during their hospitalization. The following Patient Care Plans were discussed with the PT: Discharge Planning, PAIN, AND COPD. STALIN YOUNG verbalizes understanding of Interdisciplinary Patient Education. Patient and/or family were informed about the Rapid Response Team and its purpose. Addendum: 10/21/18 at 1747 by JUSTIN SUÁREZ RN ADMIT TIME WAS 1730 ND N Addendum: 10/21/18 at 1748 by JUSTIN SUÁREZ RN ADMIT TIME WAS 4828
[2018-10-21 17:26] VITALS: BP 145/63
[2018-10-21] MEDS ORDERED: CATHETER FLUSH 10 ML SYR IV PRN (17:45)
[2018-10-21] MEDS ORDERED: ONDANSETRON 4 MG/2 ML (SDV) Z0FRAN IV PRN (17:45)
--- NOTE | 2018-10-21 18:37 | NUR ---
UP TO BR WITH SBA. PT NOT WANTING TO WEAR O2 AND UPSET THAT STEROIDS "HAVE MADE ME A SHAKY MESS". ENCOURAGED TO REPLACE O2. SATS HIGH 80'S ON ROOM AIR.
[2018-10-21 19:09] VITALS: BP 147/80
[2018-10-21] MEDS: methylPREDNISolone 125 MG (Solu-MEDROL) VIAL IV SCH (20:24)
--- NOTE | 2018-10-21 20:35 | NUR ---
PT REQUESTED HS HOME MEDICATIONS. DR AMBRIZ NOTIFIED AND NEW ORDERS RECEIVED
[2018-10-21] MEDS: CLOPIDOGREL 75 MG (PLAVIX) TABLET PO SCH (21:41)
[2018-10-21] MEDS: CATHETER FLUSH 10 ML SYR IV SCH (21:41)
[2018-10-21] MEDS: meTOproloL SUCCINATE 50 MG (TOPROL XL) TAB PO SCH (21:41)
[2018-10-21] MEDS ORDERED: RT-ALBUTEROL/IPRATROPIUM 3 ML (DUONEB) VIAL INH PRN (22:15)
[2018-10-22] VITALS (7 sets, daily range): BP systolic 117–156; BP diastolic 56–73
[2018-10-22] MEDS: methylPREDNISolone 125 MG (Solu-MEDROL) VIAL IV SCH ×3 (03:05→15:25)
[2018-10-22] MEDS: CATHETER FLUSH 10 ML SYR IV SCH ×3 (03:06→20:34)
[2018-10-22] MEDS ORDERED: RT-ALBUTEROL/IPRATROPIUM 3 ML (DUONEB) VIAL INH SCH ×2 (06:02→08:00)
[2018-10-22 06:18] LABS: BASOPHILS % (AUTO) 0 % (0-10); EOSINOPHILS % (AUTO) 0 % (0-10); HEMATOCRIT 39 % (35-52); HEMOGLOBIN 12.7 G/DL (11.5-16.0); LYMPHOCYTES # (AUTO) 0.7 X 10^3 (1.0-4.0); LYMPHOCYTES % (AUTO) 5 % (12-44); MEAN CORPUSCULAR HEMOGLOBIN 29 PG (25-34); MEAN CORPUSCULAR HGB CONC 33 G/DL (32-36); MEAN CORPUSCULAR VOLUME 88 FL (80-99); MONOCYTES # (AUTO) 0.2 X 10^3 (0.0-1.0); MONOCYTES % (AUTO) 1 % (0-12); NEUTROPHILS # (AUTO) 12.9 X 10^3 (1.8-7.8); NEUTROPHILS % (AUTO) 94 % (42-75); PLATELET COUNT 320 10^3/uL (130-400); RED CELL DISTRIBUTION WIDTH 14.9 % (10.0-14.5); WHITE BLOOD COUNT 13.8 10^3/uL (4.3-11.0)
[2018-10-22] MEDS: RT-ALBUTEROL/IPRATROPIUM 3 ML (DUONEB) VIAL INH SCH ×5 (06:25→22:59)
[2018-10-22 06:47] LABS: BILIRUBIN,TOTAL 0.4 MG/DL (0.1-1.0); CALCIUM 9.1 MG/DL (8.5-10.1); CREATININE SERUM 1.05 MG/DL (0.60-1.30); POTASSIUM 4.1 MMOL/L (3.6-5.0); TOTAL PROTEIN 7.7 GM/DL (6.4-8.2)
[2018-10-22 06:48] LABS: CHOLESTEROL 165 MG/DL (< 200); HDL CHOLESTEROL 45 MG/DL (40-60); TRIGLYCERIDES 100 MG/DL (<150); VLDL CHOLESTEROL 20 MG/DL (5-40)
--- NOTE | 2018-10-22 07:10 | NUR ---
This RT seen pt in ER on 10/21/2018 and administered 1 Duoneb and 4 Albuterol treatments, followed by a continuous neb with 15mg Albuterol and 0.5mg Atrovent. Pt presented with Spo2 of low to mid 80's and after all treatments pt Spo2 was 86-89% on room air. Report was passed on to Maria De Jesus Meek) spice fumigator RT that plan was pt would be admitted and ER physician was ordering MAT protocol and it was discussed that pt would score out for Q4H tx per protocol. 0558: Report recieved on pt. At this time pt is found to have been ordered BID and Q2h prn treatments and no treatment administered since admission to floor. Pt re-assess at this time and Scores for Q4H tx per protocol and meds are now ordered Q4H and Q2H prn. 0625: RT to bedside to administer treatment and upon arrival pt is in moderate distress, and upset that she did not receive breathing treatments t/o the night like had been discussed with her by ERP and this RT. Education provided to pt and RN on new frequency of treatment and to call if treatment is needed prior to arrival. Pt verbalizes decreased work of breathing post breathing treatment. Addendum: 10/22/18 at 0716 by MELBA WRIGHT RT Amended: Links added.
[2018-10-22] MEDS: meTOproloL SUCCINATE 50 MG (TOPROL XL) TAB PO SCH ×2 (08:42→20:33)
[2018-10-22] MEDS ORDERED: NAPR220T66 PO (09:30)
[2018-10-22] MEDS ORDERED: CLOP75TA28 PO (09:30)
[2018-10-22] MEDS ORDERED: FURO20TA4 PO (09:30)
[2018-10-22] MEDS ORDERED: ATOR40TA70 PO (09:30)
[2018-10-22] MEDS ORDERED: LOSA1TAB20 PO (09:30)
[2018-10-22] MEDS ORDERED: ASPI-983 PO (09:30)
[2018-10-22] MEDS ORDERED: ACET-2267 PO (09:30)
--- NOTE | 2018-10-22 15:22 | History & Physicial (CHS) ---
HPI History of Present Illness: 68 yo F that presents with shortness of breath and left shoulder pain. Denies any trauma or injury to shoulder. States that she has been going to chiropractor for the last few weeks and he has improved the pain but it got worse the day prior to admission. She has also been having more shortness of breath and fatigue with ambulation. Patient has a h/o CABG x2 in 2012 and had a normal stress test last month. This pain is different then her previous pain when she had her heart attack. Otherwise has been feeling well. Source: patient, family (Sister and Brother in law) Exam Limitations: no limitations Date seen by provider: October 22, 2018 Time Seen by Provider: 10:05 Attending Physician Kit Márquez MD PCP Jada Paul Consult Date of Admission October 21, 2018 at 16:27 Home Medications Home Medications Reviewed patient Home Medication Reconciliation performed by pharmacy medication reconciliations hvac technician and/or nursing. Patients Allergies have been reviewed. Allergies Coded Allergies: ciprofloxacin (Verified Allergy, Unknown, 10/21/18) cortisone (Verified Allergy, Unknown, 10/21/18) lovastatin (Verified Allergy, Unknown, 10/21/18) ALLERGY LISTED ON FASHION STYLING INTERN ORDER 01/22/16 AUA-Iwoaop-Ztzkfk Hx Patient Social History Alcohol Use: Denies Use Recreational Drug Use: No Smoking Status: Never a Smoker 2nd Hand Smoke Exposure: No Recent Foreign Travel: No Contact w/other who traveled: No Recent Hopitalizations: No Recent Infectious Disease Expo: No Physical Abuse Screen: No Sexual Abuse: No Immunizations Up To Date Date of Pneumonia Vaccine: Feb 15, 2014 Past Medical History CAD w/ CABG x2 in 2012 COPD Obesity BRETT on CPAP Family Medical History Significant Family History: No Pertinent Family Hx Review of Systems (CHC) Constitutional: No chills, No fever; malaise, weakness EENTM: no symptoms reported Respiratory: No cough; dyspnea on exertion; No orthopnea; short of breath Cardiovascular: no symptoms reported; No chest pain, No edema, No palpitations Gastrointestinal: no symptoms reported; No abdominal pain, No constipation, No diarrhea, No nausea, No vomiting Genitourinary: no symptoms reported; No dysuria, No frequency, No hematuria : No Musculoskeletal: joint pain Skin: no symptoms reported Psychiatric/Neurological: No Symptoms Reported Reviewed Test Results Reviewed Test Results Lab Laboratory Tests Test 10/21/18 12:25 10/22/18 05:58 Range/Units White Blood Count 10.7 13.8 H 4.3-11.0 10^3/uL Red Blood Count 4.53 4.38 4.35-5.85 10^6/uL Hemoglobin 13.0 12.7 11.5-16.0 G/DL Hematocrit 40 39 35-52 % Mean Corpuscular Volume 89 88 80-99 FL Mean Corpuscular Hemoglobin 29 29 25-34 PG Mean Corpuscular Hemoglobin Concent 32 33 32-36 G/DL Red Cell Distribution Width 14.8 H 14.9 H 10.0-14.5 % Platelet Count 309 320 130-400 10^3/uL Mean Platelet Volume 9.9 10.0 7.4-10.4 FL Neutrophils (%) (Auto) 73 94 H 42-75 % Lymphocytes (%) (Auto) 11 L 5 L 12-44 % Monocytes (%) (Auto) 8 1 0-12 % Eosinophils (%) (Auto) 9 0 0-10 % Basophils (%) (Auto) 1 0 0-10 % Neutrophils # (Auto) 7.8 12.9 H 1.8-7.8 X 10^3 Lymphocytes # (Auto) 1.1 0.7 L 1.0-4.0 X 10^3 Monocytes # (Auto) 0.8 0.2 0.0-1.0 X 10^3 Eosinophils # (Auto) 0.9 H 0.0 0.0-0.3 10^3/uL Basophils # (Auto) 0.1 0.0 0.0-0.1 10^3/uL Prothrombin Time 13.5 12.2-14.7 SEC INR Comment 1.0 0.8-1.4 Activated Partial Thromboplast Time 30 24-35 SEC D-Dimer 0.51 H 0.00-0.49 UG/ML Sodium Level 141 141 135-145 MMOL/L Potassium Level 3.9 4.1 3.6-5.0 MMOL/L Chloride Level 107 107 98-107 MMOL/L Carbon Dioxide Level 22 19 L 21-32 MMOL/L Anion Gap 12 15 H 5-14 MMOL/L Blood Urea Nitrogen 20 H 25 H 7-18 MG/DL Creatinine 1.03 1.05 0.60-1.30 MG/DL Estimat Glomerular Filtration Rate 53 52 BUN/Creatinine Ratio 19 24 Glucose Level 112 H 193 H 70-105 MG/DL Calcium Level 8.9 9.1 8.5-10.1 MG/DL Corrected Calcium 8.9 9.1 8.5-10.1 MG/DL Magnesium Level 1.8 1.8-2.4 MG/DL Total Bilirubin 0.4 0.4 0.1-1.0 MG/DL Aspartate Amino Transf (AST/SGOT) 23 19 5-34 U/L Alanine Aminotransferase (ALT/SGPT) 24 24 0-55 U/L Alkaline Phosphatase 85 84 40-136 U/L Myoglobin 56.0 10.0-92.0 NG/ML Troponin I < 0.028 <0.028 NG/ML B-Type Natriuretic Peptide 101.5 H <100.0 PG/ML Total Protein 7.9 7.7 6.4-8.2 GM/DL Albumin 4.0 4.0 3.2-4.5 GM/DL Triglycerides Level 100 <150 MG/DL Cholesterol Level 165 < 200 MG/DL LDL Cholesterol Direct 114 1-129 MG/DL VLDL Cholesterol 20 5-40 MG/DL HDL Cholesterol 45 40-60 MG/DL Physical Exam-(CHC) Physical Exam Vital Signs VS - Last 72 Hours, by Label 10/21/18 10/21/18 10/21/18 10/21/18 12:20 12:22 12:45 12:52 Temp 98.1 98.1 Pulse 61 Resp 22 B/P (MAP) 176/100 (125) Pulse Ox 95 95 O2 Delivery Nasal Cannula Nasal Cannula Nasal Cannula O2 Flow Rate 2.00 2.00 10/21/18 10/21/18 10/21/18 10/21/18 13:52 13:57 14:48 14:53 Temp 98.1 Pulse Ox 99 99 94 O2 Delivery Nasal Cannula Nasal Cannula Room Air O2 Flow Rate 3.00 3.00 10/21/18 10/21/18 10/21/18 10/21/18 14:58 15:15 17:22 17:26 Temp 97.8 98.2 Pulse 84 89 Resp 20 22 B/P (MAP) 154/70 (98) 145/63 Pulse Ox 88 99 95 97 O2 Delivery Room Air Nasal Cannula Nasal Cannula Nasal Cannula O2 Flow Rate 3.00 2.00 10/21/18 10/21/18 10/21/18 10/21/18 17:26 18:12 19:09 20:00 Temp 98.2 99.0 Pulse 89 98 Resp 22 22 B/P (MAP) 145/63 (90) 147/80 (102) Pulse Ox 97 97 94 O2 Delivery Nasal Cannula Nasal Cannula Nasal Cannula Nasal Cannula O2 Flow Rate 2.00 2.00 2.00 3.00 10/21/18 10/21/18 10/22/18 10/22/18 20:23 20:23 00:35 03:24 Temp 98.4 97.2 Pulse 87 85 66 Resp 20 20 B/P (MAP) 144/69 (94) 138/62 (87) Pulse Ox 93 93 95 95 O2 Delivery Nasal Cannula Nasal Cannula Nasal Cannula O2 Flow Rate 2.00 2.00 2.00 10/22/18 10/22/18 10/22/18 10/22/18 05:59 06:25 08:00 08:00 Temp 97.4 Pulse 82 Resp 18 B/P (MAP) 156/70 (98) Pulse Ox 95 98 95 O2 Delivery Nasal Cannula Nasal Cannula Nasal Cannula O2 Flow Rate 2.00 2.00 3.00 FiO2 28 10/22/18 10/22/18 10/22/18 09:39 12:00 14:00 Temp 97.8 Pulse 80 Resp 22 B/P (MAP) 128/58 (81) Pulse Ox 94 96 84 O2 Delivery Nasal Cannula Nasal Cannula Nasal Cannula O2 Flow Rate 1.00 2.00 1.00 Capillary Refill : Less Than 3 SecondsLess Than 3 Seconds General Appearance: WD/WN, no apparent distress HEENT: PERRL/EOMI, pharynx normal Neck: non-tender, supple Respiratory: chest non-tender, no respiratory distress, no accessory muscle use, wheezing Cardiovascular: regular rate, rhythm, no edema, no murmur Gastrointestinal: normal bowel sounds, non tender, soft, no organomegaly Back: no CVA tenderness, no vertebral tenderness Extremities: no pedal edema, no calf tenderness, normal capillary refill, other (left shoulder ttp, normal ROM) Neurologic/Psychiatric: wearing apparel shaker II-XII nml as tested, no motor/sensory deficits, alert, normal mood/affect, oriented x 3 Skin: normal color, warm/dry Lymphatic: no adenopathy Assessment/Plan Assessment/Plan Admission Status: Observation (1) COPD with acute exacerbation Status: Acute Assessment & Plan: - MAT protocol, steroid and antibiotics (2) Hypoxia Status: Acute Assessment & Plan: - titrate oxygen as tolerated (3) Hypertension Status: Acute Assessment & Plan: - Continue home meds Qualifiers: Qualified Codes: I10 - Essential (primary) hypertension (4) Left shoulder pain Status: Chronic Assessment & Plan: - Most likely MS, normal stress test last month, trop neg Qualifiers: Qualified Codes: M25.512 - Pain in left shoulder; G89.29 - Other chronic pain (5) CAD (coronary artery disease) Status: Chronic Assessment & Plan: - Continue home meds Qualifiers: Qualified Codes: I25.10 - Atherosclerotic heart disease of [place] coronary artery without angina pectoris (6) DVT prophylaxis Status: Acute Assessment & Plan: Lovenox Clinical Quality Measures AMI/AHF: ASA po Prior to arrival: Yes (81 mg) DVT/VTE Risk/Contraindication: Risk Factor Score Per Nursin RFS Level Per Nursing on Admit: 4+=Very High KIT MÁRQUEZ MD October 22, 2018 15:22
[2018-10-22] MEDS ORDERED: ACETAMINOPHEN 325 MG TABLET PO PRN (19:30)
[2018-10-22] MEDS: CLOPIDOGREL 75 MG (PLAVIX) TABLET PO SCH (20:33)
[2018-10-22] MEDS ORDERED: ATORVASTATIN 40 MG (LIPITOR) TABLET PO SCH (21:00)
[2018-10-23] MEDS: RT-ALBUTEROL/IPRATROPIUM 3 ML (DUONEB) VIAL INH SCH ×3 (02:40→10:42)
[2018-10-23 03:48] VITALS: BP 142/66
[2018-10-23 05:19] LABS: BASOPHILS % (AUTO) 0 % (0-10); EOSINOPHILS % (AUTO) 0 % (0-10); HEMATOCRIT 40 % (35-52); HEMOGLOBIN 12.7 G/DL (11.5-16.0); LYMPHOCYTES # (AUTO) 1.2 X 10^3 (1.0-4.0); LYMPHOCYTES % (AUTO) 5 % (12-44); MEAN CORPUSCULAR HEMOGLOBIN 29 PG (25-34); MEAN CORPUSCULAR HGB CONC 32 G/DL (32-36); MEAN CORPUSCULAR VOLUME 91 FL (80-99); MEAN PLATELET VOLUME 10.2 FL (7.4-10.4); MONOCYTES # (AUTO) 2.1 X 10^3 (0.0-1.0); MONOCYTES % (AUTO) 9 % (0-12); NEUTROPHILS # (AUTO) 19.6 X 10^3 (1.8-7.8); NEUTROPHILS % (AUTO) 86 % (42-75); PLATELET COUNT 332 10^3/uL (130-400); RED CELL DISTRIBUTION WIDTH 14.9 % (10.0-14.5); WHITE BLOOD COUNT 22.9 10^3/uL (4.3-11.0)
[2018-10-23 05:40] LABS: CALCIUM 9.3 MG/DL (8.5-10.1); CREATININE SERUM 1.02 MG/DL (0.60-1.30); POTASSIUM 4.2 MMOL/L (3.6-5.0)
[2018-10-23] MEDS: CATHETER FLUSH 10 ML SYR IV SCH (05:52)
[2018-10-23 06:26] LABS: LYMPHOCYTES % (MANUAL) 6 %; MONOCYTES % (MANUAL) 8 %; NEUTROPHILS % (MANUAL) 86 %
[2018-10-23] MEDS ORDERED: predniSONE 10 MG TAB PO SCH (07:00)
[2018-10-23 08:00] VITALS: BP 173/79
[2018-10-23] MEDS: meTOproloL SUCCINATE 50 MG (TOPROL XL) TAB PO SCH (08:21)
[2018-10-23] MEDS ORDERED: NON-FORMULARY MEDICATION 1 EA EA (Losartan/Hydrochlorothiazide (Losartan-Hctz 50-12.5 mg T PO SCH (09:00)
[2018-10-23] MEDS ORDERED: HYDROCHLOROTHIAZIDE 12.5 MG (HCTZ) CAP PO SCH (09:00)
[2018-10-23] MEDS ORDERED: LOSARTAN 50 MG (COZAAR) TAB PO SCH (09:00)
[2018-10-23] MEDS ORDERED: ASPIRIN E.C. 81 MG (ECOTRIN) TAB PO SCH (09:00)
[2018-10-23 12:38] VITALS: BP 140/70
[2018-10-23] MEDS ORDERED: PRD10T PO (14:20)
[2018-10-23] MEDS ORDERED: RT-ALBUINH IH (14:20)
--- NOTE | 2018-10-23 14:23 | Discharge Instructions ---
Discharge [facility] Discharge Medications New, Converted or Re-Newed RX: Transmitted to Pharmacy ([address] [place] [address] Pharmacy) New Medications: Albuterol Sulfate (Proair Hfa) 1 Puff Puff 2 PUFF IH Q4H PRN for WHEEZING, #1 PUFF 0 Refills 1 PUFF = 90 MCG Prednisone (Prednisone) 10 Mg Tab 0 PO DAILY@0700, #20 TAB 0 Refills 4 tabs(40mg) daily x2d 3 tabs (30mg) daily x2d 2 tabs (20mg) daily x2d 1 tab (10mg) daily x2d Continued Medications: Acetaminophen (Tylenol Extra Strength) 500 Mg Tablet 1000 MG PO HS PRN for PAIN-MILD, TAB Aspirin (Aspirin EC) 81 Mg Tablet.dr 81 MG PO DAILY, TAB Atorvastatin Calcium (Atorvastatin Calcium) 40 Mg Tablet 40 MG PO HS, TAB Clopidogrel Bisulfate (Clopidogrel) 75 Mg Tablet 75 MG PO HS, TAB Furosemide (Furosemide) 20 Mg Tablet 20 MG PO TWICE WEEKLY PRN for SWELLING, TAB Losartan/Hydrochlorothiazide (Losartan-Hctz 50-12.5 mg Tab) 1 Each Tablet 1 TAB PO DAILY, TAB Metoprolol Tartrate (Metoprolol Tartrate) 50 Mg Tablet 50 MG PO BID, TAB Naproxen Sodium (Aleve) 220 Mg Tablet 440 MG PO Q8H PRN for PAIN-MILD, TAB Patient Instructions Goal/Follow Up Appt: Schedule f/u appointment with Jada Paul in [place]. Activity & Diet Discharge Diet: Cardiac Diet ULICES DURBIN DO October 23, 2018 14:23
--- NOTE | 2018-10-23 14:30 | Discharge Summary ---
Diagnosis/Chief Complaint Date of Admission October 21, 2018 at 16:27 Date of Discharge October 23, 2018 Admission Diagnosis Admission Diagnosis COPD w/ acute exacerbation Chest/shoulder pain Discharge Diagnosis See Problem List Problems/Diagnosis: (1) COPD with acute exacerbation Assessment & Plan: - MAT protocol, steroid and antibiotics 10/23 - Pt not treated with antibiotics as no evidence of pneumonia - initial wbc 10.7, increased to 22.9 but suspect increase due to steroids as pt clinically improved - currently on po prednisone - will DC home on taper and RX for Proair - recommend PFTs as OP if not previously done as pt is not on other inhalers for COPD - consider Pulmonary Rehab referral from PCP if appropriate. - recommend f/u with PCP - Jdaa Paul (not a [facility] pt). Status: Acute (2) Hypoxia Assessment & Plan: - titrate oxygen as tolerated 10/23 - O2 weaned; 94-96% on RA at DC Status: Acute (3) Hypertension Assessment & Plan: - Continue home meds Qualifiers: Qualified Codes: I10 - Essential (primary) hypertension Status: Acute (4) Left shoulder pain Assessment & Plan: - Most likely MS, normal stress test last month, trop neg Qualifiers: Qualified Codes: M25.512 - Pain in left shoulder; G89.29 - Other chronic pain Status: Chronic (5) CAD (coronary artery disease) Assessment & Plan: - Continue home meds Qualifiers: Qualified Codes: I25.10 - Atherosclerotic heart disease of [place] coronary artery without angina pectoris Status: Chronic (6) DVT prophylaxis Assessment & Plan: Lovenox Status: Acute Chief Complaint/HPI Chief Complaint/HPI 68 yo F that presents with shortness of breath and left shoulder pain. Denies any trauma or injury to shoulder. States that she has been going to chiropractor for the last few weeks and he has improved the pain but it got worse the day prior to admission. She has also been having more shortness of breath and fa tigue with ambulation. Patient has a h/o CABG x2 in 2012 and had a normal stress test last month. This pain is different then her previous pain when she had her heart attack. Otherwise has been feeling well. Discharge Summary-Simple/Stand Consultations Discharge Physical Examination Allergies: Coded Allergies: ciprofloxacin (Verified Allergy, Unknown, 10/21/18) cortisone (Verified Allergy, Unknown, 10/21/18) lovastatin (Verified Allergy, Unknown, 10/21/18) ALLERGY LISTED ON LAW SECRETARY ORDER 01/22/16 Vitals & I&Os Vital Sign - Last 12Hours Date Time Temp Pulse Resp B/P (MAP) Pulse Ox O2 Delivery O2 Flow Rate FiO2 10/23/18 12:38 98.6 71 18 140/70 (93) 96 Room Air 10/23/18 07:49 3.00 10/22/18 05:59 28 Intake and Output0 10/23/18 00:00 Intake Total 2180 ml Output Total 1 ml Balance 2179 ml General Appearance: Alert, Oriented X3, Cooperative Respiratory: Clear to Auscultation Cardiovascular: Regular Rate Neuro: Normal Speech Psych/Mental Status: Mental Status NL Hospital Course See final discharge diagnosis. Discharge Instructions to patient/family Please see electronic discharge instructions given to patient. Discharge [facility] Discharge Medications New, Converted or Re-Newed RX: Transmitted to Pharmacy ([address] [place] [address] Pharmacy) New Medications: Albuterol Sulfate (Proair Hfa) 1 Puff Puff 2 PUFF IH Q4H PRN for WHEEZING, #1 PUFF 0 Refills 1 PUFF = 90 MCG Prednisone (Prednisone) 10 Mg Tab 0 PO DAILY@0700, #20 TAB 0 Refills 4 tabs(40mg) daily x2d 3 tabs (30mg) daily x2d 2 tabs (20mg) daily x2d 1 tab (10mg) daily x2d Continued Medications: Acetaminophen (Tylenol Extra Strength) 500 Mg Tablet 1000 MG PO HS PRN for PAIN-MILD, TAB Aspirin (Aspirin EC) 81 Mg Tablet.dr 81 MG PO DAILY, TAB Atorvastatin Calcium (Atorvastatin Calcium) 40 Mg Tablet 40 MG PO HS, TAB Clopidogrel Bisulfate (Clopidogrel) 75 Mg Tablet 75 MG PO HS, TAB Furosemide (Furosemide) 20 Mg Tablet 20 MG PO TWICE WEEKLY PRN for SWELLING, TAB Losartan/Hydrochlorothiazide (Losartan-Hctz 50-12.5 mg Tab) 1 Each Tablet 1 TAB PO DAILY, TAB Metoprolol Tartrate (Metoprolol Tartrate) 50 Mg Tablet 50 MG PO BID, TAB Naproxen Sodium (Aleve) 220 Mg Tablet 440 MG PO Q8H PRN for PAIN-MILD, TAB Patient Instructions Goal/Follow Up Appt: Schedule f/u appointment with Jada Paul in [place]. Activity & Diet Discharge Diet: Cardiac Diet Discharge Medications Reviewed and agree with Discharge Medication list on patient's Discharge Instruction sheet Clinical Quality Measures AMI/AHF: ASA po Prior to arrival: Yes (81 mg) DVT/VTE Risk/Contraindication: Risk Factor Score Per Nursin RFS Level Per Nursing on Admit: 4+=Very High ULICES DURBIN DO October 23, 2018 14:30
[2018-10-23 15:05] VITALS: BP 140/70
== END 2018-10-23 15:05 | disposition home or self-care (01) | DRG 191 ==
LOC: EDUNIT# 12:16 → ER 12:17 → 4TH 16:27
PROVIDERS: ADMIT Family Medicine; ATTEND Family Medicine
DX: J44.1 Chronic obstructive pulmonary disease with (acute) exacerbation (principal); R09.02 Hypoxemia; Z68.43 Body mass index [BMI] 50.0-59.9, adult; M25.512 Pain in left shoulder; M54.2 Cervicalgia; R20.0 Anesthesia of skin; R20.2 Paresthesia of skin; J30.2 Other seasonal allergic rhinitis; I25.10 Atherosclerotic heart disease of native coronary artery without angina pectoris; I25.2 Old myocardial infarction; I10 Essential (primary) hypertension; E78.00 Pure hypercholesterolemia, unspecified; G47.33 Obstructive sleep apnea (adult) (pediatric); E66.9 Obesity, unspecified; K21.9 Gastro-esophageal reflux disease without esophagitis; Z95.1 Presence of aortocoronary bypass graft; Z95.5 Presence of coronary angioplasty implant and graft; Z96.653 Presence of artificial knee joint, bilateral
CPT/HCPCS: 36415; 71045; 73030; 80048; 80053; 80061; 83735; 83874; 83880; 84484; 85007; 85025; 85027; 85379; 85610; 85730; 93041; 94640; 94760

== ENCOUNTER → 2019-06-17 | Outpatient (CLI) | payer MEDICARE, OTHER ==
[~2019-06-17] MED LIST changes: +ACET-2267 PO; +ASPI-983 PO; +CLOP75TA28 PO; +FURO20TA4 PO; +LOSA1TAB20 PO; +NAPR220T66 PO; +PRD10T PO; +RT-ALBUINH IH
== END ==
LOC: CARD 09:36
PROVIDERS: ATTEND Internal Medicine Cardiovascular Disease
DX: I08.1 Rheumatic disorders of both mitral and tricuspid valves (principal); I25.10 Atherosclerotic heart disease of native coronary artery without angina pectoris; E78.5 Hyperlipidemia, unspecified; I65.23 Occlusion and stenosis of bilateral carotid arteries; I27.0 Primary pulmonary hypertension; Z95.1 Presence of aortocoronary bypass graft
CPT/HCPCS: 93306

== ENCOUNTER 2019-08-26 12:40 | Emergency (ER) | payer MEDICARE, OTHER ==
[~2019-08-26] VITALS: Ht 149.8 cm; Wt 112.9 kg
[2019-08-26] MEDS ORDERED: ONDANSETRON 4 MG (ZOFRAN) ORAL DISSOLVE TAB SL STA (13:21)
[2019-08-26] MEDS ORDERED: KETOROLAC 60 MG/2 ML VIAL IM STA (13:24)
--- NOTE | 2019-08-26 13:35 | ED Back Pain ---
General Chief Complaint: Back Problems Stated Complaint: N/V/D;CHILLS;LEFT HIP PAIN Nursing Triage Note: pt amb to triage with complaint of back pain. states started this morning around 0900. states went to chiropractor and told that her back was out of alignment but pain has not been relieved. Nursing Sepsis Screen: No Definite Risk History of Present Illness Date Seen by Provider: Aug 26, 2019 Time Seen by Provider: 13:05 Initial Comments 69-year-old female. She began having pain at 0900 this morning. It mainly hurting in the lower lumbar and left hip. She denies any injury, but he did require her to come home from work because of the pain this morning. She took Tylenol 650 mg at 10:00 am. No history of previous back problems. No pain radiating down either leg. She had N/V/D that began last evening. She tried AlkSeltzer. Last vomited at 12:30 today. She ate breakfast this am. Timing/Duration: 1 Day Severity: Mild Pain/Injury Location: Back Associated Symptoms: lower back pain; No loss of bladder control, No loss of bowel control Allergies and Home Medications Allergies Coded Allergies: ciprofloxacin (Verified Allergy, Unknown, 10/21/18) cortisone (Verified Allergy, Unknown, 10/21/18) lovastatin (Verified Allergy, Unknown, 10/21/18) ALLERGY LISTED ON AUTOMATION CONTROL TECHNICIAN ORDER 01/22/16 Home Medications Acetaminophen 500 Mg Tablet, 1,000 MG PO HS PRN for PAIN-MILD, (Reported) Albuterol Sulfate 1 Puff Puff, 2 PUFF IH Q4H PRN for WHEEZING 1 PUFF = 90 MCG Prescribed by: ULICES DURBIN on 10/23/18 1420 Aspirin 81 Mg Tablet.dr, 81 MG PO DAILY, (Reported) Atorvastatin Calcium 40 Mg Tablet, 40 MG PO HS, (Reported) Clopidogrel Bisulfate 75 Mg Tablet, 75 MG PO HS, (Reported) Furosemide 20 Mg Tablet, 20 MG PO TWICE WEEKLY PRN for SWELLING, (Reported) Losartan/Hydrochlorothiazide 1 Each Tablet, 1 TAB PO DAILY, (Reported) Metoprolol Tartrate 50 Mg Tablet, 50 MG PO BID, (Reported) Naproxen Sodium 220 Mg Tablet, 440 MG PO Q8H PRN for PAIN-MILD, (Reported) Ondansetron 4 Mg Tab.rapdis, 8 MG PO Q6H PRN for NAUSEA/VOMITING Prescribed by: CUONG CLARKE on 08/26/19 1413 Prednisone 10 Mg Tab, 0 PO DAILY@0700 4 tabs(40mg) daily x2d 3 tabs (30mg) daily x2d 2 tabs (20mg) daily x2d 1 tab (10mg) daily x2d Prescribed by: ULICES DURBIN on 10/23/18 1420 Patient Home Medication List Home Medication List Reviewed: Yes Review of Systems Constitutional: no symptoms reported Respiratory: no symptoms reported, see HPI; No cough Cardiovascular: no symptoms reported, see HPI; No chest pain Gastrointestinal: see HPI; No abdominal pain; diarrhea, nausea, vomiting Musculoskeletal: see HPI, back pain, joint pain (left SI) All Other Systems Reviewed Negative Unless Noted: Yes Past Yczddza-Wymosx-Ggzhpf Hx Past Med/Social Hx: Reviewed Nursing Past Med/Soc Hx Patient Social History Alcohol Use: Denies Use Recreational Drug Use: No Smoking Status: Never a Smoker 2nd Hand Smoke Exposure: No Recent Foreign Travel: No Contact w/Someone Who Travel: No Recent Infectious Disease Expo: No Recent Hopitalizations: No Immunizations Up To Date Tetanus Booster (TDap): Unknown Date of Pneumonia Vaccine: Feb 15, 2014 Seasonal Allergies Seasonal Allergies: Yes Past Medical History Surgeries: Yes Abdominal, Appendectomy, Cardiac, CABG, Coronary Stent, Gallbladder, Hysterectomy, Joint Replacement, Orthopedic, Tonsillectomy, Tubal Ligation Respiratory: Yes Sleep Apnea, COPD Currently Using CPAP: Yes Currently Using BIPAP: No Cardiac: Yes (CABG AND STENT X 1) Coronary Artery Disease, Heart Attack, High Cholesterol, Hypertension 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 History: Hysterectomy, Tubal Ligation, Menopausal Genitourinary: No Gastrointestinal: Yes (HIATAL HERNIA/INGUINAL HERNIA--S/P REPAIRS; S/P YIMI) Abdominal Hernia, Gastroesophageal Reflux, Hiatal Hernia, Gall Bladder Disease Musculoskeletal: Yes (S/P BILATEARL KNEE REPLACEMENT) Arthritis Endocrine: No HEENT: No Cancer: No Psychosocial: No Integumentary: No Blood Disorders: No Family Medical History No Pertinent Family Hx Physical Exam Vital Signs Vital Signs - First Documented 08/26/19 12:56 Temp 36.9 Pulse 64 Resp 20 B/P (MAP) 192/96 (128) Pulse Ox 92 O2 Delivery Room Air Capillary Refill : Less Than 3 Seconds Height, Weight, BMI Height: 4'11.00" Weight: 248lbs. 5.0oz. 112.433341cq; 50.00 BMI Method:Stated General Appearance: No Apparent Distress, WD/WN, Obese Neck: Full Range of Motion, Normal Inspection, Non Tender, Supple Cardiovascular: Regular Rate, Rhythm, No Edema, No Murmur, Normal Peripheral Pulses Respiratory: Chest Non Tender, Lungs Clear, Normal Breath Sounds Gastrointestinal: Normal Bowel Sounds, Non Tender, Soft; No Distended, No Guarding, No Rebound, No Tenderness Back: Normal Inspection, No CVA Tenderness, Decreased Range of Motion (secondary to pain), Muscle Spasm (left mid lumbar), Vertebral Tenderness (lower lumbar), Other (Power V/V L4-S1, neg SLR. ) Extremity: Normal Capillary Refill, Normal Inspection, Normal Range of Motion Neurologic/Psychiatric: Alert, Oriented x3, No Motor/Sensory Deficits, Normal Mood/Affect Skin: Normal Color, Warm/Dry Progress/Results/Core Measures Results/Orders My Orders Orders - CUONG CLARKE Ondansetron Oral Dissolve Tab (Zofran (08/26/19 13:21) Lumbar Spine - 2-3 Views (08/26/19 13:22) Ketorolac Injection (Toradol Injection) (08/26/19 13:24) Vital Signs/I&O 08/26/19 08/26/19 12:56 14:22 Temp 36.9 Pulse 64 62 Resp 20 15 B/P (MAP) 192/96 (128) 170/90 (128) Pulse Ox 92 92 O2 Delivery Room Air Blood Pressure Mean: 128 Diagnostic Imaging Diagonstic Imaging: Xray Plain Films/CT/US/NM/MRI: other (back) Comments NAME: STALIN YOUNG [facility] REC#: [id number] PT STATUS: DEP ER : 1950 PHYSICIAN: CUONG CLARKE ADMIT DATE: 08/26/19/ER Draft Date of Exam:08/26/19 LUMBAR SPINE - 2-3 VIEWS INDICATION: Acute low back pain. COMPARISON: None available. TECHNIQUE: Three views of the lumbosacral spine were obtained. FINDINGS: There is mild degenerative anterior wedging involving the T11 and T12 vertebral bodies. The lumbar vertebral bodies are normal in height. No subluxation within the lumbar spine. Intervertebral disc space heights are fairly well preserved. Degenerative disc disease from T11-T12 through L1-L2 is mild in severity. Atherosclerotic plaquing in the aorta. Mild degenerative arthritis of both SI joints. IMPRESSION: 1. No acute fracture in the lumbar spine. 2. Degenerative disc disease at the thoracolumbar junction. Dictated on workstation # [id number] Dict: 08/26/19 1356 Trans: 08/26/19 1422 [id number] Interpreted by: MICHELINE CONKLIN MD Electronically signed by: Reviewed: Reviewed by Me Departure Impression Primary Impression: Back pain Qualified Codes: M54.5 - Low back pain Additional Impressions: Lumbar sprain Qualified Codes: S33.5XXA - Sprain of ligaments of lumbar spine, initial encounter Nausea vomiting and diarrhea Disposition: HOME, SELF-CARE Condition: Improved Departure-Patient Inst. Decision time for Depature: 14:10 Referrals: NO,LOCAL PHYSICIAN (PCP) Primary Care Physician ANTONINO FERRELL (Family) Primary Care Physician Patient Instructions: Lumbar Muscle Strain (DC), Nausea and Vomiting, Adult (DC) Add. Discharge Instructions: Use warm moist towes or ice to your low back for 20 minutes at a time. Use [place] or Icee Hot to your low back. Alternate between Tylenol 650 mg and ibuprofen 600 mg every 4 hours for pain. Use Alk-[place] or Imodium for diarrhea. Use the Zofran every 6-8 hours as needed for nausea or vomiting. Follow-up with your primary care provider if symptoms are not improving or worsen. Clear liquid diet until nausea, vomiting, diarrhea improved. Return to Emergency Dept for new, urgent health care needs. All discharge instructions reviewed with patient and/or family. Voiced understanding. Scripts Ondansetron (Ondansetron Odt) 4 Mg Tab.rapdis 8 MG PO Q6H PRN for NAUSEA/VOMITING, #12 TAB 0 Refills Prov: CUONG CLARKE 08/26/19 CUONG CLARKE Aug 26, 2019 13:35
[2019-08-26] MEDS ORDERED: ONDA4TAB11 PO (14:13)
[2019-08-26 14:22] VITALS: BP 170/90
--- NOTE | 2019-08-26 14:22 | Diagnostic Imaging Report ---
INDICATION: Acute low back pain. COMPARISON: None available. TECHNIQUE: Three views of the lumbosacral spine were obtained. FINDINGS: There is mild degenerative anterior wedging involving the T11 and T12 vertebral bodies. The lumbar vertebral bodies are normal in height. No subluxation within the lumbar spine. Intervertebral disc space heights are fairly well preserved. Degenerative disc disease from T11-T12 through L1-L2 is mild in severity. Atherosclerotic plaquing in the aorta. Mild degenerative arthritis of both SI joints. IMPRESSION: 1. No acute fracture in the lumbar spine. 2. Degenerative disc disease at the thoracolumbar junction. Dictated by: Dictated on workstation # [id number]
--- OUTSIDE RECORDS SUMMARY | 2019-08-26 16:59 | XMS REPORT | Continuity of Care Document ---
Author Organization Unknown Address Unknown Phone Unavailable Allergies Active Description Code Type Severity Reaction Onset Reported/Identified Relationship to Patient Clinical Status Yes ciprofloxacin [id number] Sudeep g Allergy Unknown N/A 10/21/2018 Yes cortisone [id number] Drug Allergy Unknown N/A 10/21/2018 Yes lovastatin [id number] Drug Allerg y Unknown N/A 10/21/2018 Medications There is no data. Problems Date Dx Coded Attending Type Code Diagnosis Diagnosed By 08/25/2012 Ot 397.0 TRIC USPID VALVE DISEASE 08/25/2012 Ot 401.9 HYPE RTENSION NOS 08/25/2012 Ot 414.01 COR ONARY ATHEROSCLEROSIS OF [place] CORON 08/25/2012 Ot 424.0 MITR AL VALVE DISORDER 08/25/[address] PAIN NOS 08/25/2012 Ot V58.69 OTH MED,LT,CURRENT USE 01/24/2013 JOHAN GREGORY FACC, CITLALI FACP CCDS Ot 272.4 HYPERLIPIDEMIA NEC/NOS 01/24/2013 JOHAN GREGORY FACC, CITLALI FACP CCDS Ot 401.9 HYPERTENSION NOS 01/24/2013 JOHAN GREGORY FACC, CITLALI FACP CCDS Ot 414.01 CORONARY ATHEROSCLEROSIS OF [place] CORON 01/24/2013 JOHAN GREGORY FACC, CITLALI FACP [...] CCDS Ot V58.69 OTH MED,LT,CURRENT USE 04/27/2014 CITLALI PRADO MD, FACC FACP CCDS Ot 272.4 04/27/2014 JOHAN GREGORY FACC, ALI FACP CCDS Ot 278.01 04/27/2014 JOHAN GREGORY FACC, ALI FACP CCDS Ot 401.9 04/27/2014 JOHAN GREGORY FACC, ALI FACP CCDS Ot 414.00 04/27/2014 JOHAN GREGORY FACC, ALI FACP CCDS Ot 416.8 04/27/2014 JOHAN GREGORY FACC, ALI FACP CCDS Ot 786.09 04/27/2014 JOHAN GREGORY FACC, ALI FACP CCDS Ot 786.50 04/27/2014 JOHAN GREGORY FACC, ALI FACP CCDS Ot V45.81 04/27/2014 JOHAN GREGORY FAC, ALI FACP CCDS Ot V85.42 05/29/2014 JOHAN GREGORY FAC, ALI FACP CCDS Ot 272.4 05/29/2014 JOHAN GREGORY FACC, ALI FACP CCDS Ot 278.01 05/29/2014 JOHAN GREGORY FAC, ALI FACP CCDS Ot 401.9 05/29/2014 JOHAN GREGORY FAC, ALI FACP CCDS Ot 414.00 05/29/2014 JOHAN GREGORY FAC, ALI FACP CCDS Ot 416.8 05/29/2014 JOHAN GREGORY FAC, ALI FACP CCDS Ot 786.09 05/29/2014 JOHAN GREGORY FAC, ALI FACP CCDS Ot 786.50 05/29/2014 JOHAN GREGORY FAC, ALI FACP CCDS Ot V45.81 05/29/2014 JOHAN GREGORY FAC, ALI FACP CCDS Ot V85.42 07/31/2014 Ot 401.9 HYPE RTENSION NOS 08/15/2014 Ot 272.0 PURE HYPERCHOLESTEROLEM 08/15/2014 Ot 278.01 MOR BID OBESITY 08/15/2014 Ot 346.90 TIANNA LACHELLE UNSPECIFIED W/O INTRACT MGRN W/ 08/15/2014 Ot 414.01 COR ONARY ATHEROSCLEROSIS OF [place] CORON 08/15/2014 Ot 440.0 AORT IC ATHEROSCLEROSIS 08/15/2014 Ot 786.09 RES PIRATORY ABNORM NEC 08/15/2014 Ot V45.81 AOR TOCORONARY BYPASS 08/15/2014 Ot V45.82 PER CUTANEOUS TRANSLUM CORON ANGIOPLASTY 08/15/2014 Ot V58.69 OT MED,LT,CURRENT USE 08/15/2014 Ot V85.42 BOD Y MASS INDEX 45.0-49.9, ADULT 05/15/2015 Ot V76.12 01/22/2016 MISSHAMIKA Federico OBSTETRICS TECH Ot 729.5 PAIN IN LIMB 01/22/2016 JOHAN AMRTINC, ALI FACP CCDS Ot 397.0 TRICUSPID VALVE [...] CCDS Ot 272.4 HYPERLIPIDEMIA NEC/NOS 01/22/2016 JOHAN MARTINC, ALI FACP CCDS Ot 278.01 MORBID OBESITY 01/22/2016 JOHAN MARTINC, ALI FACP CCDS Ot 401.9 HYPERTENSION NOS 01/22/2016 JOHAN MARTINC, ALI FACP CCDS Ot 414.00 CORON ATHEROSCLER NOS TYPE VESSEL, NATIV 01/22/2016 JOHAN GREGORY FACC, ALI FACP CCDS Ot 416.8 CHR PULMON HEART DIS NEC 01/22/2016 JOHAN GREGORY FACC, ALI FACP CCDS Ot 786.09 RESPIRATORY ABNORM NEC 01/22/2016 JOHAN GREGORY FACC, ALI FACP CCDS Ot 786.50 CHEST PAIN NOS 01/22/2016 JOHAN GREGORY FACC, ALI FACP CCDS Ot V45.81 AORTOCORONARY BYPASS 01/22/2016 JOHAN GREGORY FACC, ALI FACP CCDS Ot V85.42 BODY MASS INDEX 45.0-49.9, ADULT 01/22/2016 Ot V76.12 OTH SCREEN MAMMO- MALIGN NEOPLASM OF NO 01/22/2016 JOHAN GREGORY FACC, ALI FACP CCDS Ot E66.9 OBESITY, UNSPECIFIED 01/22/2016 JOHAN GREGORY FACC, ALI FACP CCDS Ot E78.0 PURE HYPERCHOLESTEROLEMIA 01/22/2016 JOHAN MARTINC, ALI FACP CCDS Ot I25.10 ATHSCL HEART DISEASE OF [place] CORONARY 01/22/2016 JOHAN GREGORY FACC, ALI FACP CCDS Ot I25.84 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 01/22/2016 JOHAN GREGORY FACC, ALI FACP CCDS Ot I70.0 ATHEROSCLEROSIS OF [place] 01/22/2016 JOHAN MARTINC, ALI FACP CCDS Ot J44.9 CHRONIC OBSTRUCTIVE PULMONARY DISEASE, U 01/22/2016 JOHAN MARTINC, ALI FACP CCDS Ot Z68.42 BODY MASS INDEX (BMI) 45.0-49.9, ADULT 01/22/2016 JOHAN GREGORY FACC, ALI FACP CCDS Ot Z79.899 OTHER JAIL (CURRENT) DRUG THERAPY 01/22/2016 JOHAN GREGORY FACC, ALI FACP CCDS Ot Z95.1 PRESENCE OF AORTOCORONARY BYPASS GRAFT 01/22/2016 JOHAN MARTINC, ALI FACP CCDS Ot Z95.5 PRESENCE OF CORONARY ANGIOPLASTY IMPLANT 01/29/2016 JOHAN GREGORY FACC, ALI FACP CCDS Ot E66.9 OBESITY, UNSPECIFIED 01/29/2016 JOHAN MARTINC, ALI FACP CCDS Ot E78.0 PURE HYPERCHOLESTEROLEMIA 01/29/2016 JOHAN GREGORY FACC, ALI FACP CCDS Ot I25.10 ATHSCL HEART DISEASE OF [place] CORONARY 01/29/2016 JOHAN GREGORY FACC, ALI FACP CCDS Ot I25.84 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 01/29/2016 JOHAN GREGORY FACC, CITLALI FACP CCDS Ot I70.0 ATHEROSCLEROSIS OF [place] 01/29/2016 JOHAN GREGORY FACC, ALI FACP CCDS Ot J44.9 CHRONIC OBSTRUCTIVE PULMONARY DISEASE, U 01/29/2016 JOHAN MARTINC, ALI FACP CCDS Ot Z68.42 BODY MASS INDEX (BMI) 45.0-49.9, ADULT 01/29/2016 JOHAN MARTINC, ALI FACP CCDS Ot Z79.899 OTHER INTERVENTIONAL TECHNOLOGIST (CURRENT) DRUG THERAPY 01/29/2016 JOHAN MARTINC, ALI FACP CCDS Ot Z95.1 PRESENCE OF AORTOCORONARY BYPASS GRAFT 01/29/2016 JOHAN GREGORY FACC, ALI FACP CCDS Ot Z95.5 PRESENCE OF CORONARY ANGIOPLASTY IMPLANT 01/31/2016 JOHAN GREGORY FACC, ALI FACP CCDS Ot E66.9 OBESITY, UNSPECIFIED 01/31/2016 JOHAN GREGORY FACC, ALI FACP CCDS Ot E78.0 PURE HYPERCHOLESTEROLEMIA 01/31/2016 JOHAN GREGORY FACC, ALI FACP CCDS Ot I25.10 ATHSCL HEART DISEASE OF [place] CORONARY 01/31/2016 JOHAN GREGORY FACC, ALI FACP CCDS Ot I25.84 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 01/31/2016 JOHAN GREGORY FACC, ALI FACP CCDS Ot I70.0 ATHEROSCLEROSIS OF [place] 01/31/2016 JOHAN GREGORY FACC, ALI FACP CCDS Ot J44.9 CHRONIC OBSTRUCTIVE PULMONARY DISEASE, U 01/31/2016 JOHAN GREGORY FACC, ALI FACP CCDS Ot Z68.42 BODY MASS INDEX (BMI) 45.0-49.9, ADULT 01/31/2016 JOHAN GREGORY FACC, ALI FACP CCDS Ot Z79.899 OTHER JAIL (CURRENT) DRUG THERAPY 01/31/2016 JOHAN GREGORY FACC, ALI FACP CCDS Ot Z95.1 PRESENCE OF AORTOCORONARY BYPASS GRAFT 01/31/2016 JOHAN GREGORY FACC, ALI FACP CCDS Ot Z95.5 PRESENCE OF CORONARY ANGIOPLASTY IMPLANT 11/18/2016 NATALIO KATHLEEN MD Ot E78.00 PURE HYPERCHOLESTEROLEMIA, UNSPECIFIED 11/18/2016 NATALIO KATHLEEN MD Ot I10 ESSENTIAL (PRIMARY) HYPERTENSION 11/18/2016 NATALIO KATHLEEN MD Ot I25.10 ATHSCL HEART DISEASE OF [place] CORONARY 11/18/2016 NATALIO KATHLEEN MD Ot I25.2 OLD MYOCARDIAL INFARCTION 11/18/2016 NATALIO KATHLEEN MD Ot J44.9 CHRONIC OBSTRUCTIVE PULMONARY DISEASE, U 11/18/2016 NATALIO KATHLEEN MD Ot M54.6 PAIN IN THORACIC SPINE 11/18/2016 NATALIO KATHLEEN MD Ot M62.830 MUSCLE SPASM OF BACK 11/18/2016 NATALIO KATHLEEN MD Ot Z79.82 INTERVENTIONAL TECHNOLOGIST (CURRENT) USE OF ASPIRIN 11/18/2016 NATALIO KATHLEEN MD Ot Z95.1 PRESENCE OF AORTOCORONARY BYPASS GRAFT 11/18/2016 Ot V76.12 OTH SCREEN MAMMO- MALIGN NEOPLASM OF NO 11/18/2016 SHAMIKA ABEBE OBSTETRICS TECH Ot 729.5 PAIN IN LIMB 11/18/2016 JOHAN MARTINC, ALI FACP CCDS Ot 397.0 [...] CCDS Ot 272.4 HYPERLIPIDEMIA NEC/NOS 11/18/2016 JOHAN MARTINC, ALI FACP CCDS Ot 278.01 MORBID OBESITY 11/18/2016 JOHAN MARTINC, ALI FACP CCDS Ot 401.9 HYPERTENSION NOS 11/18/2016 JOHAN GREGORY FACC, ALI FACP CCDS Ot 414.00 CORON ATHEROSCLER NOS TYPE VESSEL, NATIV 11/18/2016 JOHAN MARTINC, ALI FACP CCDS Ot 416.8 CHR PULMON HEART DIS NEC 11/18/2016 JOHAN GREGORY FACC, ALI FACP CCDS Ot 786.09 RESPIRATORY ABNORM NEC 11/18/2016 JOHAN GREGORY FACC, ALI FACP CCDS Ot 786.50 CHEST PAIN NOS 11/18/2016 JOHAN GREGORY FACC, ALI FACP CCDS Ot V45.81 AORTOCORONARY BYPASS 11/18/2016 JOHAN GREGORY FACC, ALI FACP CCDS Ot V85.42 BODY MASS INDEX 45.0-49.9, ADULT 11/20/2016 FRANNIE GREGORY, NATALIO Cassidy Ot E78.00 PURE HYPERCHOLESTEROLEMIA, UNSPECIFIED 11/20/2016 NATALIO KATHLEEN MD Ot I10 ESSENTIAL (PRIMARY) HYPERTENSION 11/20/2016 NATALIO KATHLEEN MD Ot I25.10 ATHSCL HEART DISEASE OF [place] CORONARY 11/20/2016 NATALIO KATHLEEN MD Ot I25.2 OLD MYOCARDIAL INFARCTION 11/20/2016 NATALIO KATHLEEN MD Ot J44.9 CHRONIC OBSTRUCTIVE PULMONARY DISEASE, U 11/20/2016 NATALIO KATHLEEN MD Ot M54.6 PAIN IN THORACIC SPINE 11/20/2016 NATALIO KATHLEEN MD Ot M62.830 MUSCLE SPASM OF BACK 11/20/2016 NATALIO KATHLEEN MD Ot Z79.82 INTERVENTIONAL TECHNOLOGIST (CURRENT) USE OF ASPIRIN 11/20/2016 NATALIO KATHLEEN MD Ot Z95.1 PRESENCE OF AORTOCORONARY BYPASS GRAFT 11/24/2016 NATALIO KATHLEEN MD Ot E78.00 PURE HYPERCHOLESTEROLEMIA, UNSPECIFIED 11/24/2016 NATALIO KATHLEEN MD Ot I10 ESSENTIAL (PRIMARY) HYPERTENSION 11/24/2016 NATALIO KATHLEEN MD Ot I25.10 ATHSCL HEART DISEASE OF [place] CORONARY 11/24/2016 NATALIO KATHLEEN MD Ot I25.2 OLD MYOCARDIAL INFARCTION 11/24/2016 NATALIO KATHLEEN MD, Ot J44.9 CHRONIC OBSTRUCTIVE PULMONARY DISEASE, U 11/24/2016 NATALIO KATHLEEN MD Ot M54.6 PAIN IN THORACIC SPINE 11/24/2016 NATALIO KATHLEEN MD Ot M62.830 MUSCLE SPASM OF BACK 11/24/2016 NATALIO KATHLEEN MD Ot Z79.82 JAIL (CURRENT) USE OF ASPIRIN 11/24/2016 NATALIO KATHLEEN MD Ot Z95.1 PRESENCE OF AORTOCORONARY BYPASS GRAFT 03/13/2017 SHAMIKA ABEBE OBSTETRICS TECH Ot 729.5 PAIN IN LIMB 03/13/2017 CITLALI PRADO MD, FACC FACP CCDS Ot 397.0 TRICUSPID VALVE DISEASE 03/13/2017 JOHAN GREGORY FACC, CITLALI FACP CCDS Ot 401.9 HYPERTENSION NOS 03/13/2017 JOHAN GREGROY FACC, ALI FACP CCDS Ot 414.00 CORON ATHEROSCLER NOS TYPE VESSEL, NATIV 03/13/2017 JOHAN MD FACC, ALI FACP CCDS Ot 416.8 CHR PULMON HEART DIS NEC 03/13/2017 JOHAN GREGORY FACC, ALI FACP CCDS Ot 424.0 MITRAL VALVE DISORDER 03/13/2017 JOHAN GREGORY FACC, ALI FACP CCDS Ot V45.81 AORTOCORONARY BYPASS 03/13/2017 JOHAN GREGORY FACC, ALI FACP CCDS Ot 272.4 HYPERLIPIDEMIA NEC/NOS 03/13/2017 JOHAN GREGORY FACC, ALI FACP CCDS Ot 278.01 MORBID OBESITY 03/13/2017 JOHAN GREGORY FACC, ALI FACP CCDS Ot 401.9 HYPERTENSION NOS 03/13/2017 JOHAN GREGORY FACC, ALI FACP CCDS Ot 414.00 CORON ATHEROSCLER NOS TYPE VESSEL, NATIV 03/13/2017 JOHAN GREGORY FACC, ALI FACP CCDS Ot 416.8 CHR PULMON HEART DIS NEC 03/13/2017 JOHAN GREGORY FACC, ALI FACP CCDS Ot 786.09 RESPIRATORY ABNORM NEC 03/13/2017 JOHAN GREGORY FACC, ALI FACP CCDS Ot 786.50 CHEST PAIN NOS 03/13/2017 JOHAN GREGORY FACC, ALI FACP CCDS Ot V45.81 AORTOCORONARY BYPASS 03/13/2017 JOHAN GREGORY FACC, ALI FACP CCDS Ot V85.42 BODY MASS INDEX 45.0-49.9, ADULT 05/02/2017 VERONICA TRACEY MAGALIE K Ot E78.00 PURE HYPERCHOLESTEROLEMIA, UNSPECIFIED 05/02/2017 VERONICA DO MAGALIE K Ot I10 ESSENTIAL (PRIMARY) HYPERTENSION 05/02/2017 VERONICA TRACEY MAGALIE K Ot I25.10 ATHSCL HEART DISEASE OF [place] CORONARY 05/02/2017 VERONICA DO MAGALIE K Ot I25.2 OLD MYOCARDIAL INFARCTION 05/02/2017 VERONICA DO MAGALIE K Ot J44.9 CHRONIC OBSTRUCTIVE PULMONARY DISEASE, U 05/02/2017 VERONICA DO MAGALIE K Ot K52.9 NONINFECTIVE GASTROENTERITIS AND COLITIS 05/02/2017 VERONICA DO MAGALIE K Ot M19.90 UNSPECIFIED OSTEOARTHRITIS, UNSPECIFIED 05/02/2017 VERONICA DO MAGALIE K Ot N39.0 URINARY TRACT INFECTION, SITE NOT SPECIF 05/02/2017 JERRI MARTIN DOA K Ot R11.2 NAUSEA WITH VOMITING, UNSPECIFIED 05/02/2017 VERONICA DO, MAGALIE K Ot Z79.82 INTERVENTIONAL TECHNOLOGIST (CURRENT) USE OF ASPIRIN 05/02/2017 MAGALIE MARTIN [...] Ot Z98.51 TUBAL LIGATION STATUS 05/02/2017 SHAMIKA ABBEE Ot 729.5 PAIN IN LIMB 05/02/2017 JOHAN [...] BODY MASS INDEX 45.0-49.9, ADULT 05/02/2017 JOHAN GREGORY FACC, ALI FACP CCDS Ot E78.2 MIXED HYPERLIPIDEMIA 05/02/2017 JOHAN GREGORY FACC, ALI FACP CCDS Ot I10 ESSENTIAL (PRIMARY) HYPERTENSION 05/02/2017 JOHAN GREGORY FACC, ALI FACP CCDS Ot I25.10 ATHSCL HEART DISEASE OF [place] CORONARY 05/02/2017 JOHAN GREGORY FACC, ALI FACP [...] FACP CCDS Ot 401.9 HYPERTENSION NOS 09/10/2018 JOHNA GREGORY FACC, ALI FACP CCDS Ot 414.00 [...] CCDS Ot 278.01 MORBID OBESITY 09/10/2018 JOHAN GREGORY FACC, ALI FACP CCDS [...] CCDS Ot I25.10 ATHSCL HEART DISEASE OF [place] CORONARY 09/10/2018 JOHAN GREGORY FACC, ALI FACP CCDS Ot I73.9 PERIPHERAL VASCULAR DISEASE, UNSPECIFIED 09/10/2018 JOHAN GREGROY FACC, ALI FACP CCDS Ot R06.09 OTHER FORMS OF DYSPNEA 09/10/2018 JOHAN GREGORY FACC, ALI FACP CCDS Ot R60.0 LOCALIZED EDEMA 09/10/2018 JOHAN GREGORY FACC, ALI FACP CCDS Ot Z95.1 PRESENCE OF AORTOCORONARY BYPASS GRAFT 09/15/2018 JOHAN GREGORY FACC, ALI FACP CCDS Ot E66.9 OBESITY, UNSPECIFIED 09/15/2018 JOHAN GREGORY FACC, ALI FACP CCDS Ot E78.5 HYPERLIPIDEMIA, UNSPECIFIED 09/15/2018 JOHAN GREGORY FACC, ALI FACP CCDS Ot G47.33 OBSTRUCTIVE SLEEP APNEA (ADULT) (PEDIATR 09/15/2018 JOHAN GREGORY FACC, ALI FACP CCDS Ot I10 ESSENTIAL (PRIMARY) HYPERTENSION 09/15/2018 JOHAN GREGORY FACC, ALI FACP CCDS Ot I25.10 ATHSCL HEART DISEASE OF [place] CORONARY 09/15/2018 JOHAN GREGORY FACC, ALI FACP CCDS Ot I65.23 OCCLUSION AND STENOSIS OF BILATERAL [place] 09/15/2018 JOHAN MD FACC, ALI FACP CCDS Ot Z95.1 PRESENCE OF AORTOCORONARY BYPASS GRAFT 10/05/2018 JOHAN GREGORY FACC, ALI FACP CCDS Ot E66.9 OBESITY, UNSPECIFIED 10/05/2018 JOHAN GREGORY FACC, ALI FACP CCDS Ot E78.5 HYPERLIPIDEMIA, UNSPECIFIED 10/05/2018 JOHAN MARTINC, ALI FACP CCDS Ot G47.33 OBSTRUCTIVE SLEEP APNEA (ADULT) (PEDIATR 10/05/2018 JOHAN MARTINC, ALI FACP CCDS Ot I10 ESSENTIAL (PRIMARY) HYPERTENSION 10/05/2018 JOHAN GREGORY FACC, ALI FACP CCDS Ot I25.10 ATHSCL HEART DISEASE OF [place] CORONARY 10/05/2018 JOHAN GREGORY FACC, ALI FACP CCDS Ot I65.23 OCCLUSION AND STENOSIS OF [place] 10/05/2018 JOHAN GREGORY FACC, ALI FACP CCDS Ot Z95.1 PRESENCE OF AORTOCORONARY BYPASS GRAFT 10/21/2018 JOHAN GREGORY FACC, ALI FACP CCDS Ot 397.0 TRICUSPID VALVE DISEASE 10/21/2018 JOHAN GREGORY FACC, ALI FACP CCDS Ot 401.9 HYPERTENSION NOS 10/21/2018 JOHAN GREGORY FACC, ALI FACP CCDS Ot 414.00 CORON ATHEROSCLER NOS TYPE VESSEL, NATIV 10/21/2018 JOHAN GREGORY FACC, ALI FACP CCDS Ot 416.8 CHR PULMON HEART DIS NEC 10/21/2018 JOHAN GREGORY FACC, ALI FACP CCDS Ot 424.0 MITRAL VALVE DISORDER 10/21/2018 JOHAN GREGORY FACC, ALI FACP CCDS Ot V45.81 AORTOCORONARY BYPASS 10/21/2018 JOHAN GREGORY FACC, ALI FACP CCDS Ot 272.4 HYPERLIPIDEMIA NEC/NOS 10/21/2018 JOHAN GREGORY FACC, ALI FACP CCDS Ot 278.01 MORBID OBESITY 10/21/2018 JOHAN GREGORY FACC, ALI FACP CCDS Ot 401.9 HYPERTENSION NOS 10/21/2018 JOHAN MARTINC, ALI FACP CCDS Ot 414.00 CORON ATHEROSCLER NOS TYPE VESSEL, NATIV 10/21/2018 JOHAN MARTINC, ALI FACP CCDS Ot 416.8 CHR PULMON HEART DIS NEC 10/21/2018 JOHAN MARTINC, ALI FACP CCDS Ot 786.09 RESPIRATORY ABNORM NEC 10/21/2018 JOHAN GREGORY [facility], ALI FACP CCDS Ot 786.50 CHEST PAIN NOS 10/21/2018 JOHAN GREGORY [facility], ALI FACP CCDS Ot V45.81 AORTOCORONARY BYPASS 10/21/2018 JOHAN GREGORY FACC, ALI FACP CCDS Ot V85.42 BODY MASS INDEX 45.0-49.9, ADULT 10/21/2018 JOHAN GREGORY FACC, ALI FACP CCDS Ot E78.2 MIXED HYPERLIPIDEMIA 10/21/2018 JOHAN GREGORY [facility], ALI FACP CCDS Ot I10 ESSENTIAL (PRIMARY) HYPERTENSION 10/21/2018 JOHAN GREGORY [facility], ALI FACP CCDS Ot I25.10 ATHSCL HEART DISEASE OF [place] CORONARY 10/21/2018 JOHAN GREGORY [facility], ALI FACP CCDS Ot I73.9 PERIPHERAL VASCULAR DISEASE, UNSPECIFIED 10/21/2018 JOHAN GREGORY [facility], ALI FACP CCDS Ot R06.09 OTHER FORMS OF DYSPNEA 10/21/2018 JOHAN GREGORY [facility], ALI FACP CCDS Ot R60.0 LOCALIZED EDEMA 10/21/2018 JOHAN GREGORY [facility], ALI FACP CCDS Ot Z95.1 PRESENCE OF AORTOCORONARY BYPASS GRAFT 10/21/2018 JOHAN GREGORY FACC, ALI FACP CCDS Ot E66.9 OBESITY, UNSPECIFIED 10/21/2018 JOHAN GREGORY [facility], ALI FACP CCDS Ot E78.5 HYPERLIPIDEMIA, UNSPECIFIED 10/21/2018 JOHAN GREGORY [facility], ALI FACP CCDS Ot G47.33 OBSTRUCTIVE SLEEP APNEA (ADULT) (PEDIATR 10/21/2018 JOHAN GREGORY [facility], ALI FACP CCDS Ot I10 ESSENTIAL (PRIMARY) HYPERTENSION 10/21/2018 JOHAN GREGORY [facility], ALI FACP CCDS Ot I25.10 ATHSCL HEART DISEASE OF [place] CORONARY 10/21/2018 JOHAN MARTIN, ALI FACP CCDS Ot I65.23 OCCLUSION AND STENOSIS OF BILATERAL [place] 10/21/2018 JOHAN MARTIN, ALI FACP CCDS Ot Z95.1 PRESENCE OF AORTOCORONARY BYPASS GRAFT 10/23/2018 KIT AMBRIZ MD Ot E66.9 OBESITY, UNSPECIFIED 10/23/2018 KIT AMBRIZ MD Ot E78.0 0 PURE HYPERCHOLESTEROLEMIA, UNSPECIFIED 10/23/2018 KIT AMBRIZ MD Ot G47.3 0 SLEEP APNEA, UNSPECIFIED 10/23/2018 KIT AMBRIZ MD Ot I10 ESSENTIAL (PRIMARY) HYPERTENSION 10/23/2018 KIT AMBRIZ MD Ot I25.1 0 ATHSCL HEART DISEASE OF [place] CORONARY 10/23/2018 KIT AMBRIZ MD Ot I25.2 OLD MYOCARDIAL INFARCTION 10/23/2018 KIT AMBRIZ MD Ot J30.2 OTHER SEASONAL ALLERGIC RHINITIS 10/23/2018 KIT AMBRIZ MD Ot J44.1 CHRONIC OBSTRUCTIVE PULMONARY DISEASE W 10/23/2018 KIT AMBRIZ MD Ot K21.9 GASTRO-ESOPHAGEAL REFLUX DISEASE WITHOUT 10/23/2018 KIT AMBRIZ MD Ot M25.5 12 PAIN IN LEFT SHOULDER 10/23/2018 KIT AMBRIZ MD Ot M54.2 CERVICALGIA 10/23/2018 KIT AMBRIZ MD Ot R09.0 2 HYPOXEMIA 10/23/2018 KIT AMBRIZ MD Ot R20.0 ANESTHESIA OF SKIN 10/23/2018 KIT AMBRIZ MD Ot R20.2 PARESTHESIA OF SKIN 10/23/2018 KIT AMBRIZ MD Ot Z68.4 3 BODY MASS INDEX (BMI) 50-59.9, ADULT 10/23/2018 KIT AMBRIZ MD Ot Z95.1 PRESENCE OF AORTOCORONARY BYPASS GRAFT 10/23/2018 KIT AMBRIZ MD Ot Z95.5 PRESENCE OF CORONARY ANGIOPLASTY IMPLANT 10/23/2018 KIT AMBRIZ MD Ot Z96.6 53 PRESENCE OF ARTIFICIAL KNEE JOINT, BILAT 10/23/2018 KIT AMBRIZ MD Ot E66.9 OBESITY, UNSPECIFIED 10/23/2018 KIT AMBRIZ MD Ot E78.0 0 PURE HYPERCHOLESTEROLEMIA, UNSPECIFIED 10/23/2018 KIT AMBRIZ MD Ot G47.3 3 OBSTRUCTIVE SLEEP APNEA (ADULT) (PEDIATR 10/23/2018 KIT AMBRIZ MD Ot I10 ESSENTIAL (PRIMARY) HYPERTENSION 10/23/2018 KIT AMBRIZ MD Ot I25.1 0 ATHSCL HEART DISEASE OF [place] CORONARY 10/23/2018 KIT AMBRIZ MD Ot I25.2 OLD MYOCARDIAL INFARCTION 10/23/2018 KIT AMBRIZ MD Ot J30.2 OTHER SEASONAL ALLERGIC RHINITIS 10/23/2018 KIT AMBRIZ MD Ot J44.1 CHRONIC OBSTRUCTIVE PULMONARY DISEASE W 10/23/2018 KIT AMBRIZ MD Ot K21.9 GASTRO-ESOPHAGEAL REFLUX DISEASE WITHOUT 10/23/2018 KIT AMBRIZ MD Ot M25.5 12 PAIN IN LEFT SHOULDER 10/23/2018 KIT AMBRIZ MD Ot M54.2 CERVICALGIA 10/23/2018 KIT AMBRIZ MD Ot R09.0 2 HYPOXEMIA 10/23/2018 KIT AMBRIZ MD Ot R20.0 ANESTHESIA OF SKIN 10/23/2018 KIT AMBRIZ MD Ot R20.2 PARESTHESIA OF SKIN 10/23/2018 KIT AMBRIZ MD Ot Z68.4 3 BODY MASS INDEX (BMI) 50-59.9, ADULT 10/23/2018 KIT AMBRIZ MD Ot Z95.1 PRESENCE OF AORTOCORONARY BYPASS GRAFT 10/23/2018 KIT AMBRIZ MD Ot Z95.5 PRESENCE OF CORONARY ANGIOPLASTY IMPLANT 10/23/2018 KIT AMBRIZ MD Ot Z96.6 53 PRESENCE OF ARTIFICIAL KNEE JOINT, BILAT 10/23/2018 KIT AMBRIZ MD Ot E66.9 OBESITY, UNSPECIFIED 10/23/2018 KIT AMBRIZ MD Ot E78.0 0 PURE HYPERCHOLESTEROLEMIA, UNSPECIFIED 10/23/2018 KIT AMBRIZ MD Ot G47.3 3 OBSTRUCTIVE SLEEP APNEA (ADULT) (PEDIATR 10/23/2018 KIT AMBRIZ MD Ot I10 ESSENTIAL (PRIMARY) HYPERTENSION 10/23/2018 KIT AMBRIZ MD Ot I25.1 0 ATHSCL HEART DISEASE OF [place] CORONARY 10/23/2018 KIT AMBRIZ MD Ot I25.2 OLD MYOCARDIAL INFARCTION 10/23/2018 KIT AMBRIZ MD Ot J30.2 OTHER SEASONAL ALLERGIC RHINITIS 10/23/2018 KIT AMBRIZ MD Ot J44.1 CHRONIC OBSTRUCTIVE PULMONARY DISEASE W 10/23/2018 KIT AMBRIZ MD Ot K21.9 GASTRO-ESOPHAGEAL REFLUX DISEASE WITHOUT 10/23/2018 KIT AMBRIZ MD Ot M25.5 12 PAIN IN LEFT SHOULDER 10/23/2018 KIT AMBRIZ MD Ot M54.2 CERVICALGIA 10/23/2018 KIT AMBRIZ MD Ot R09.0 2 HYPOXEMIA 10/23/2018 KIT AMBRIZ MD Ot R20.0 ANESTHESIA OF SKIN 10/23/2018 KIT AMBRIZ MD Ot R20.2 PARESTHESIA OF SKIN 10/23/2018 KIT AMBRIZ MD Ot Z68.4 3 BODY MASS INDEX (BMI) 50-59.9, ADULT 10/23/2018 KIT AMBRIZ MD Ot Z95.1 PRESENCE OF AORTOCORONARY BYPASS GRAFT 10/23/2018 KIT AMBRIZ MD Ot Z95.5 PRESENCE OF CORONARY ANGIOPLASTY IMPLANT 10/23/2018 KIT AMBRIZ MD Ot Z96.6 53 PRESENCE OF ARTIFICIAL KNEE JOINT, BILAT 06/16/2019 JOHAN GREGORY FACC, CITLALI FACP CCDS Ot 272.4 HYPERLIPIDEMIA NEC/NOS 06/16/2019 JOHAN GREGORY FACC, ALI FACP CCDS Ot 278.01 MORBID OBESITY 06/16/2019 JOHAN GREGORY FACC, ALI FACP CCDS Ot 401.9 HYPERTENSION NOS 06/16/2019 JOHAN GREGORY FACC, ALI FACP CCDS Ot 414.00 CORON ATHEROSCLER NOS TYPE VESSEL, NATIV 06/16/2019 JOHAN GREGORY FACC, ALI FACP CCDS Ot 416.8 CHR PULMON HEART DIS NEC 06/16/2019 JOHAN GREGORY FACC, ALI FACP CCDS Ot 786.09 RESPIRATORY ABNORM NEC 06/16/2019 JOHAN GREGORY FACC, ALI FACP CCDS Ot 786.50 CHEST PAIN NOS 06/16/2019 JOHAN GREGORY FACC, ALI FACP CCDS Ot V45.81 AORTOCORONARY BYPASS 06/16/2019 JOHAN GREGORY FACC, ALI FACP CCDS Ot V85.42 BODY MASS INDEX 45.0-49.9, ADULT 06/16/2019 JOHAN GREGORY FACC, ALI FACP CCDS Ot E78.2 MIXED HYPERLIPIDEMIA 06/16/2019 JOHAN GREGORY FACC, ALI FACP CCDS Ot I10 ESSENTIAL (PRIMARY) HYPERTENSION 06/16/2019 JOHAN GREGORY FACC, ALI FACP CCDS Ot I25.10 ATHSCL HEART DISEASE OF [place] CORONARY 06/16/2019 JOHAN GREGORY FACC, ALI FACP CCDS Ot I73.9 PERIPHERAL VASCULAR DISEASE, UNSPECIFIED 06/16/2019 JOHAN MD [facility], ALI FACP CCDS Ot R06.09 OTHER FORMS OF DYSPNEA 06/16/2019 JOHAN [facility], ALI FACP CCDS Ot R60.0 LOCALIZED EDEMA 06/16/2019 [facility], ALI FACP CCDS Ot Z95.1 PRESENCE OF AORTOCORONARY BYPASS GRAFT 06/16/2019 [facility], ALI FACP CCDS Ot E66.9 OBESITY, UNSPECIFIED 06/16/2019 [facility], ALI FACP CCDS Ot E78.5 HYPERLIPIDEMIA, UNSPECIFIED 06/16/2019 [facility], ALI FACP CCDS Ot G47.33 OBSTRUCTIVE SLEEP APNEA (ADULT) (PEDIATR 06/16/2019 [facility], ALI FACP CCDS Ot I10 ESSENTIAL (PRIMARY) HYPERTENSION 06/16/2019 [facility], ALI FACP CCDS Ot I25.10 ATHSCL HEART DISEASE OF [place] CORONARY 06/16/2019 JOHAN [facility], ALI FACP CCDS Ot I65.23 OCCLUSION AND STENOSIS OF BILATERAL [place] 06/16/2019 [facility], ALI FACP CCDS Ot Z95.1 PRESENCE OF AORTOCORONARY BYPASS GRAFT 06/22/2019 [facility], ALI FACP CCDS Ot E78.5 HYPERLIPIDEMIA, UNSPECIFIED 06/22/2019 [facility], ALI FACP CCDS Ot I08.1 RHEUMATIC DISORDERS OF BOTH MITRAL AND T 06/22/2019 [facility], ALI FACP CCDS Ot I25.10 ATHSCL HEART DISEASE OF [place] CORONARY 06/22/2019 [facility], ALI FACP CCDS Ot I27.0 PRIMARY PULMONARY HYPERTENSION 06/22/2019 [facility], ALI FACP CCDS Ot I65.23 OCCLUSION AND STENOSIS OF BILATERAL [place] 06/22/2019 [facility], ALI FACP CCDS Ot Z95.1 PRESENCE OF AORTOCORONARY BYPASS GRAFT 08/11/2019 JOHAN [facility], ALI FACP CCDS Ot E78.5 HYPERLIPIDEMIA, UNSPECIFIED 08/11/2019 [facility], ALI FACP CCDS Ot I08.1 RHEUMATIC DISORDERS OF BOTH [place] AND T 08/11/2019 JOHAN [facility], ALI FACP CCDS Ot I25.10 ATHSCL HEART DISEASE OF [place] CORONARY 08/11/2019 JOHAN GREGORY [facility], [place] [facility] CCDS Ot I27.0 PRIMARY PULMONARY HYPERTENSION 08/11/2019 JOHAN GREGORY [facility], [facility] Ot I65.23 OCCLUSION AND STENOSIS OF BILATERAL [place] 08/11/2019 JOHAN GREGORY [facility], [facility] Ot Z95.1 PRESENCE OF AORTOCORONARY BYPASS GRAFT Procedures There is no data. Results Test Result Range Automated blood complete blood count (he mogram) panel - 01/22/16 07:15 Blood leukocytes automated count (number/volume) 11.7 10*3/uL 4.3-11.0 Blood erythrocytes automated count (number/volume) 5.08 10*6/uL 4.35-5.85 Venous blood hemoglobin measurement (mass/volume) 14.5 g/dL 11.5-16.0 Blood hematocrit (volume fraction) 44 % 35-52 Automated erythrocyte mean corpuscular volume 87 [ foz_us] 80-99 Automated erythrocyte mean corpuscular h emoglobin (mass per erythrocyte) 29 pg 25-34 Automated erythrocyte mean corpuscular h emoglobin concentration measurement (mass/volume) 33 g/dL 32-36 Automated erythrocyte distribution width ratio 14. 4 % 10.0- 14.5 Automated blood platelet count (count/volume) 351 10*3/uL 130-400 Automated blood platelet mean volume measurement 9.9 [foz_us] 7.4-10.4 PT panel in platelet poor plasma by coag ulation assay - 01/22/16 07:15 Prothrombin time (PT) in platelet poor plasma by coagu lation assay 12.4 s 12.2-14.7 INR in platelet poor plasma or blood by coagulation as say 1.0 0.8-1.4 Activated partial thromboplastin time (a PTT) in platelet poor plasma bycoagulation assay - 01/22/16 07:15 Activated partial thromboplastin time (a PTT) in platelet poor plasma bycoagulation assay 22 s 24-35 Comprehensive metabolic panel - 01/22/16 07:15 Serum or plasma sodium measurement (moles/volume) 140 mmol/L 135-145 Serum or plasma potassium measurement (moles/volume) 4.3 mmol/L 3.6-5.0 Serum or plasma chloride measurement (moles/volume) 104 mmol/L 98-107 Carbon dioxide 25 mmol/L 21-32 Serum or plasma anion gap determination (moles/volume) 11 mmol/L 5-14 Serum or plasma urea nitrogen measurement (mass/volume ) 17 mg/dL 7-18 Serum or plasma creatinine measurement (mass/volume) 1.02 mg/dL 0.60-1.30 Serum or plasma urea nitrogen/creatinine mass ratio 17 NRG Serum or plasma creatinine measurement w ith calculation of estimated glomerular filtration rate 54 NRG Serum or plasma glucose measurement (mass/volume) 114 mg/dL 70-105 Serum or plasma calcium measurement (mass/volume) 9.5 mg/dL 8.5-10.1 Serum or plasma total bilirubin measurement (mass/volu me) 0.7 mg/dL 0.1-1.0 Serum or plasma alkaline phosphatase jorgito surement (enzymatic activity/volume) 108 U/L 40-136 Serum or plasma aspartate aminotransfera se measurement (enzymatic activity/volume) 22 U/L 5-34 Serum or plasma alanine aminotransferase measurement (enzymatic activity/volume) 22 U/L 0-55 Serum or plasma protein measurement (mass/volume) 8.1 g/dL 6.4-8.2 Serum or plasma albumin measurement (mass/volume) 4.2 g/dL 3.2-4.5 Lipid 1996 panel - 01/22/16 07:15 Serum or plasma triglyceride measurement (mass/volume) 200 mg/dL <150 Serum or plasma cholesterol measurement (mass/volume) 180 mg/dL < 200 Serum or plasma cholesterol in HDL measurement (mass/v olume) 39 mg/dL 40-60 Cholesterol in LDL [mass/volume] in serum or plasma by direct assay 117 mg/dL 1-129 Serum or plasma cholesterol in VLDL measurement (mass/ volume) 40 mg/dL 5-40 Methicillin resistant Staphylococcus aur eus (MRSA) screening culture - 01/22/16 07:15 Methicillin resistant Staphylococcus aureus (MRSA) scr eening culture NEG NRG Complete blood count (CBC) with automate d white blood cell (WBC) differential - 11/18/16 09:50 Blood leukocytes automated count (number/volume) 8.7 10*3/uL 4.3-11.0 Blood erythrocytes automated count (number/volume) 4.59 10*6/uL 4.35-5.85 Venous blood hemoglobin measurement (mass/volume) 13.2 g/dL 11.5-16.0 Blood hematocrit (volume fraction) 41 % 35-52 Automated erythrocyte mean corpuscular volume 90 [ foz_us] 80-99 Automated erythrocyte mean corpuscular h emoglobin (mass per erythrocyte) 29 pg 25-34 Automated erythrocyte mean corpuscular h emoglobin concentration measurement (mass/volume) 32 g/dL 32-36 Automated erythrocyte distribution width ratio 14. 1 % 10.0- 14.5 Automated blood platelet count (count/volume) 340 10*3/uL [...] 10*3 1.0-4.0 Blood monocytes automated count (number/volume) 0. 7 10*3 0.0-1.0 Automated eosinophil count 0.6 10*3/uL 0 .0-0.3 Automated blood basophil count (count/volume) 0.0 10*3/uL 0.0-0.1 PT panel in platelet poor plasma by coag ulation assay - 11/18/16 09:50 Prothrombin time (PT) in platelet poor plasma by coagu lation assay 13.3 s 12.2-14.7 INR in platelet poor plasma or blood by coagulation as say 1.0 0.8-1.4 Activated partial thromboplastin time (a PTT) in platelet poor plasma bycoagulation assay - 11/18/16 09:50 Activated partial thromboplastin time (a PTT) in platelet poor plasma bycoagulation assay 28 s 24-35 Comprehensive metabolic panel - 11/18/16 09:50 Serum or plasma sodium measurement (moles/volume) 143 mmol/L 135-145 Serum or plasma potassium measurement (moles/volume) 4.1 mmol/L 3.6-5.0 Serum or plasma chloride measurement (moles/volume) 106 mmol/L 98-107 Carbon dioxide 26 mmol/L 21-32 Serum or plasma anion gap determination (moles/volume) 11 mmol/L 5-14 Serum or plasma urea nitrogen measurement (mass/volume ) 12 mg/dL 7-18 Serum or plasma creatinine measurement (mass/volume) 1.12 mg/dL 0.60-1.30 Serum or plasma urea nitrogen/creatinine mass ratio 11 0-20 Serum or plasma creatinine measurement w ith calculation of estimated glomerular filtration rate 48 NRG Serum or plasma glucose measurement (mass/volume) 106 mg/dL 70-105 Serum or plasma calcium measurement (mass/volume) 9.3 mg/dL 8.5-10.1 Serum or plasma total bilirubin measurement (mass/volu me) 0.8 mg/dL 0.1-1.0 Serum or plasma alkaline phosphatase jorgito surement (enzymatic activity/volume) 106 U/L 40-136 Serum or plasma aspartate aminotransfera se measurement (enzymatic activity/volume) 16 U/L 5-34 Serum or plasma alanine aminotransferase measurement (enzymatic activity/volume) 16 U/L 0-55 Serum or plasma protein measurement (mass/volume) 7.8 g/dL 6.4-8.2 Serum or plasma albumin measurement (mass/volume) 4.1 g/dL 3.2-4.5 Magnesium - 11/18/16 09:50 Magnesium 2.0 mg/dL 1.8-2.4 Serum or plasma troponin i.cardiac measu rement (mass/volume) - 11/18/16 09:50 Serum or plasma troponin i.cardiac measurement (mass/v olume) < ng/mL <0.30 Myoglobin, serum - 11/18/16 09:50 Myoglobin, serum 40.1 ng/mL 10.0-92.0 Complete urinalysis with reflex to cultu re - 05/02/17 19:30 Urine color determination YELLOW NRG Urine clarity determination SLIGHTLY CLOUDY NRG Urine pH measurement by test strip 5 5-9 Specific gravity of urine by test strip 1.025 1.016-1.022 Urine protein assay by test strip, semi-quantitative 2+ NEGATIVE Urine glucose detection by automated test strip NE GATIVE NEGATIVE Erythrocytes detection in urine sediment by light micr oscopy 1+ NEGATIVE Urine ketones detection by automated test strip NE GATIVE NEGATIVE Urine nitrite detection by test strip NEGATIVE NEGATIVE Urine total bilirubin detection by test strip 1+ NEGATIVE Urine urobilinogen measurement by automated test strip (mass/volume) NORMAL NORMAL Urine leukocyte esterase detection by dipstick 3+ NEGATIVE Automated urine sediment erythrocyte cou nt by microscopy (number/high power field) [HPF] NRG Automated urine sediment leukocyte count by microscopy (number/high power field) [HPF] NRG Bacteria detection in urine sediment by light microsco py FEW NRG Squamous epithelial cells detection in u rine sediment by light microscopy >50 NRG Crystals detection in urine sediment by light microsco py PRESENT NRG Casts detection in urine sediment by light microscopy NONE NRG Mucus detection in urine sediment by light microscopy NEGATIVE NRG Complete urinalysis with reflex to culture YES NRG Amorphous sediment detection in urine sediment by ligh t microscopy FEW GRECIA URATES NRG Bacterial urine culture - 05/02/17 19:30 Bacterial urine culture [id number] NRG COLONY COUNT <10,000 NRG FTX;REPORTABLE NO FURTHER STUDIES UNLESS REQUESTED NRG URINE CULTURE RESULTS PLUS NRG Complete blood count (CBC) with automate d white blood cell (WBC) differential - 05/02/17 19:35 Blood leukocytes automated count (number/volume) 13.7 10*3/uL 4.3-11.0 Blood erythrocytes automated count (number/volume) 5.04 10*6/uL 4.35-5.85 Venous blood hemoglobin measurement (mass/volume) 14.0 g/dL 11.5-16.0 Blood hematocrit (volume fraction) 43 % 35-52 Automated erythrocyte mean corpuscular volume 85 [ foz_us] 80-99 Automated erythrocyte mean corpuscular h emoglobin (mass per erythrocyte) 28 pg 25-34 Automated erythrocyte mean corpuscular h emoglobin concentration measurement (mass/volume) 33 g/dL 32-36 Automated erythrocyte distribution width ratio 15. 1 % 10.0- 14.5 Automated blood platelet count (count/volume) 396 10*3/uL [...] 10*3 1.0-4.0 Blood monocytes automated count (number/volume) 0. 6 10*3 0.0-1.0 Automated eosinophil count 0.1 10*3/uL 0 .0-0.3 Automated blood basophil count (count/volume) 0.0 10*3/uL 0.0-0.1 Blood manual differential performed dete ction - 05/02/17 19:35 Blood monocytes/100 leukocytes 2 % NRG Manual blood segmented neutrophils/100 leukocytes 81 % NRG Blood band neutrophils/100 leukocytes 12 % NRG Manual blood lymphocytes/100 leukocytes 5 % NRG Manual eosinophils/100 leukocytes in nose 0 % NRG Manual blood basophils/100 leukocytes 0 % NRG Blood erythrocyte morphology finding identification NORMAL NRG Comprehensive metabolic panel - 05/02/17 19:35 Serum or plasma sodium measurement (moles/volume) 137 mmol/L 135-145 Serum or plasma potassium measurement (moles/volume) 4.2 mmol/L 3.6-5.0 Serum or plasma chloride measurement (moles/volume) 102 mmol/L 98-107 Carbon dioxide 22 mmol/L 21-32 Serum or plasma anion gap determination (moles/volume) 13 mmol/L 5-14 Serum or plasma urea nitrogen measurement (mass/volume ) 17 mg/dL 7-18 Serum or plasma creatinine measurement (mass/volume) 1.04 mg/dL 0.60-1.30 Serum or plasma urea nitrogen/creatinine mass ratio 16 NRG Serum or plasma creatinine measurement w ith calculation of estimated glomerular filtration rate 53 NRG Serum or plasma glucose measurement (mass/volume) 109 mg/dL 70-105 Serum or plasma calcium measurement (mass/volume) 9.3 mg/dL 8.5-10.1 Serum or plasma total bilirubin measurement (mass/volu me) 1.1 mg/dL 0.1-1.0 Serum or plasma alkaline phosphatase jorgito surement (enzymatic activity/volume) 105 U/L 40-136 Serum or plasma aspartate aminotransfera se measurement (enzymatic activity/volume) 24 U/L 5-34 Serum or plasma alanine aminotransferase measurement (enzymatic activity/volume) 18 U/L 0-55 Serum or plasma protein measurement (mass/volume) 9.1 g/dL 6.4-8.2 Serum or plasma albumin measurement (mass/volume) 4.0 g/dL 3.2-4.5 Serum or plasma amylase measurement (enz ymatic activity/volume) - 05/02/17 19:35 Serum or plasma amylase measurement (enzymatic activit y/volume) 56 U/L 25-125 Lipase - 05/02/17 19:35 Lipase 37 U/L 8-78 Complete blood count (CBC) with automate d white blood cell (WBC) differential - 10/21/18 12:25 Blood leukocytes automated count (number/volume) 10.7 10*3/uL 4.3-11.0 Blood erythrocytes automated count (number/volume) 4.53 10*6/uL 4.35-5.85 Venous blood hemoglobin measurement (mass/volume) 13.0 g/dL 11.5-16.0 Blood hematocrit (volume fraction) 40 % 35-52 Automated erythrocyte mean corpuscular volume 89 [ foz_us] 80-99 Automated erythrocyte mean corpuscular h emoglobin (mass per erythrocyte) 29 pg 25-34 Automated erythrocyte mean corpuscular h emoglobin concentration measurement (mass/volume) 32 g/dL 32-36 Automated erythrocyte distribution width ratio 14. 8 % 10.0- 14.5 Automated blood platelet count (count/volume) 309 10*3/uL 130-400 Automated blood platelet mean volume measurement 9.9 [foz_us] 7.4-10.4 Automated blood neutrophils/100 leukocytes 73 % 42-75 Automated blood lymphocytes/100 leukocytes 11 % 12-44 Blood monocytes/100 leukocytes 8 % 0-12 Automated blood eosinophils/100 leukocytes 9 % 0-10 Automated blood basophils/100 leukocytes 1 % 0-10 Blood neutrophils automated count (number/volume) 7.8 10*3 1.8-7.8 Blood lymphocytes automated count (number/volume) 1.1 10*3 1.0-4.0 Blood monocytes automated count (number/volume) 0. 8 10*3 0.0-1.0 Automated eosinophil count 0.9 10*3/uL 0 .0-0.3 Automated blood basophil count (count/volume) 0.1 10*3/uL 0.0-0.1 Comprehensive metabolic panel - 05/16/19 12:25 Serum or plasma sodium measurement (moles/volume) 141 mmol/L 135-145 Serum or plasma potassium measurement (moles/volume) 3.9 mmol/L 3.6-5.0 Serum or plasma chloride measurement (moles/volume) 107 mmol/L 98-107 Carbon dioxide 22 mmol/L 21-32 Serum or plasma anion gap determination (moles/volume) 12 mmol/L 5-14 Serum or plasma urea nitrogen measurement (mass/volume ) 20 mg/dL 7-18 Serum or plasma creatinine measurement (mass/volume) 1.03 mg/dL 0.60-1.30 Serum or plasma urea nitrogen/creatinine mass ratio 19 NRG Serum or plasma creatinine measurement w ith calculation of estimated glomerular filtration rate 53 NRG Serum or plasma glucose measurement (mass/volume) 112 mg/dL 70-105 Serum or plasma calcium measurement (mass/volume) 8.9 mg/dL 8.5-10.1 Serum or plasma total bilirubin measurement (mass/volu me) 0.4 mg/dL 0.1-1.0 Serum or plasma alkaline phosphatase jorgito surement (enzymatic activity/volume) 85 U/L 40-136 Serum or plasma aspartate aminotransfera se measurement (enzymatic activity/volume) 23 U/L 5-34 Serum or plasma alanine aminotransferase measurement (enzymatic activity/volume) 24 U/L 0-55 Serum or plasma protein measurement (mass/volume) 7.9 g/dL 6.4-8.2 Serum or plasma albumin measurement (mass/volume) 4.0 g/dL 3.2-4.5 CALCIUM CORRECTED 8.9 mg/dL 8.5-10.1 Magnesium - 10/21/18 12:25 Magnesium 1.8 mg/dL 1.8-2.4 Serum or plasma lithium measurement (mol es/volume) - 10/21/18 12:25 BNP level 101.5 pg/mL <100.0 Serum or plasma troponin i.cardiac measu rement (mass/volume) - 10/21/18 12:25 Serum or plasma troponin i.cardiac measurement (mass/v olume) < ng/mL <0.028 Myoglobin, serum - 10/21/18 12:25 Myoglobin, serum 56.0 ng/mL 10.0-92.0 PT panel in platelet poor plasma by coag ulation assay - 10/21/18 12:25 Prothrombin time (PT) in platelet poor plasma by coagu lation assay 13.5 s 12.2-14.7 INR in platelet poor plasma or blood by coagulation as say 1.0 0.8-1.4 Activated partial thromboplastin time (a PTT) in platelet poor plasma bycoagulation assay - 10/21/18 12:25 Activated partial thromboplastin time (a PTT) in platelet poor plasma bycoagulation assay 30 s 24-35 Fibrin D-dimer FEU measurement in platel et poor plasma (mass/volume) - 10/21/18 12:25 Fibrin D-dimer FEU measurement in platelet poor plasma (mass/volume) 0.51 ug/mL 0.00-0.49 Complete blood count (CBC) with automate d white blood cell (WBC) differential - 10/22/18 05:58 Blood leukocytes automated count (number/volume) 13.8 10*3/uL 4.3-11.0 Blood erythrocytes automated count (number/volume) 4.38 10*6/uL 4.35-5.85 Venous blood hemoglobin measurement (mass/volume) 12.7 g/dL 11.5-16.0 Blood hematocrit (volume fraction) 39 % 35-52 Automated erythrocyte mean corpuscular volume 88 [ foz_us] 80-99 Automated erythrocyte mean corpuscular h emoglobin (mass per erythrocyte) 29 pg 25-34 Automated erythrocyte mean corpuscular h emoglobin concentration measurement (mass/volume) 33 g/dL 32-36 Automated erythrocyte distribution width ratio 14. 9 % 10.0- 14.5 Automated blood platelet count (count/volume) 320 10*3/uL 130-400 Automated blood platelet mean volume measurement 10.0 [foz_us] 7.4-10.4 Automated blood neutrophils/100 leukocytes 94 % 42-75 Automated blood lymphocytes/100 leukocytes 5 % 12-44 Blood monocytes/100 leukocytes 1 % 0-12 Automated blood eosinophils/100 leukocytes 0 % 0-10 Automated blood basophils/100 leukocytes 0 % 0-10 Blood neutrophils automated count (number/volume) 12.9 10*3 1.8-7.8 Blood lymphocytes automated count (number/volume) 0.7 10*3 1.0-4.0 Blood monocytes automated count (number/volume) 0. 2 10*3 0.0-1.0 Automated eosinophil count 0.0 10*3/uL 0 .0-0.3 Automated blood basophil count (count/volume) 0.0 10*3/uL 0.0-0.1 Comprehensive metabolic panel - 10/22/18 05:58 Serum or plasma sodium measurement (moles/volume) 141 mmol/L 135-145 Serum or plasma potassium measurement (moles/volume) 4.1 mmol/L 3.6-5.0 Serum or plasma chloride measurement (moles/volume) 107 mmol/L 98-107 Carbon dioxide 19 mmol/L 21-32 Serum or plasma anion gap determination (moles/volume) 15 mmol/L 5-14 Serum or plasma urea nitrogen measurement (mass/volume ) 25 mg/dL 7-18 Serum or plasma creatinine measurement (mass/volume) 1.05 mg/dL 0.60-1.30 Serum or plasma urea nitrogen/creatinine mass ratio 24 NRG Serum or plasma creatinine measurement w ith calculation of estimated glomerular filtration rate 52 NRG Serum or plasma glucose measurement (mass/volume) 193 mg/dL 70-105 Serum or plasma calcium measurement (mass/volume) 9.1 mg/dL 8.5-10.1 Serum or plasma total bilirubin measurement (mass/volu me) 0.4 mg/dL 0.1-1.0 Serum or plasma alkaline phosphatase jorgito surement (enzymatic activity/volume) 84 U/L 40-136 Serum or plasma aspartate aminotransfera se measurement (enzymatic activity/volume) 19 U/L 5-34 Serum or plasma alanine aminotransferase measurement (enzymatic activity/volume) 24 U/L 0-55 Serum or plasma protein measurement (mass/volume) 7.7 g/dL 6.4-8.2 Serum or plasma albumin measurement (mass/volume) 4.0 g/dL 3.2-4.5 CALCIUM CORRECTED 9.1 mg/dL 8.5-10.1 Lipid 1996 panel - 10/22/18 05:58 Serum or plasma triglyceride measurement (mass/volume) 100 mg/dL <150 Serum or plasma cholesterol measurement (mass/volume) 165 mg/dL < 200 Serum or plasma cholesterol in HDL measurement (mass/v olume) 45 mg/dL 40-60 Cholesterol in LDL [mass/volume] in serum or plasma by direct assay 114 mg/dL 1-129 Serum or plasma cholesterol in VLDL measurement (mass/ volume) 20 mg/dL 5-40 Serum or plasma troponin i.cardiac measu rement (mass/volume) - 10/22/18 15:42 Serum or plasma troponin i.cardiac measurement (mass/v olume) 0.197 ng/mL <0.028 Complete blood count (CBC) with automate d white blood cell (WBC) differential - 10/23/18 04:51 Blood leukocytes automated count (number/volume) 22.9 10*3/uL 4.3-11.0 Blood erythrocytes automated count (number/volume) 4.38 10*6/uL 4.35-5.85 Venous blood hemoglobin measurement (mass/volume) 12.7 g/dL 11.5-16.0 Blood hematocrit (volume fraction) 40 % 35-52 Automated erythrocyte mean corpuscular volume 91 [ foz_us] 80-99 Automated erythrocyte mean corpuscular h emoglobin (mass per erythrocyte) 29 pg 25-34 Automated erythrocyte mean corpuscular h emoglobin concentration measurement (mass/volume) 32 g/dL 32-36 Automated erythrocyte distribution width ratio 14. 9 % 10.0- 14.5 Automated blood platelet count (count/volume) 332 10*3/uL 130-400 Automated blood platelet mean volume measurement 10.2 [foz_us] 7.4-10.4 Automated blood neutrophils/100 leukocytes 86 % 42-75 Automated blood lymphocytes/100 leukocytes 5 % 12-44 Blood monocytes/100 leukocytes 9 % 0-12 Automated blood eosinophils/100 leukocytes 0 % 0-10 Automated blood basophils/100 leukocytes 0 % 0-10 Blood neutrophils automated count (number/volume) 19.6 10*3 1.8-7.8 Blood lymphocytes automated count (number/volume) 1.2 10*3 1.0-4.0 Blood monocytes automated count (number/volume) 2. 1 10*3 0.0-1.0 Automated eosinophil count 0.0 10*3/uL 0 .0-0.3 Automated blood basophil count (count/volume) 0.0 10*3/uL 0.0-0.1 Whole blood basic metabolic panel - 10/06 01/24 04:51 Serum or plasma sodium measurement (moles/volume) 139 mmol/L 135-145 Serum or plasma potassium measurement (moles/volume) 4.2 mmol/L 3.6-5.0 Serum or plasma chloride measurement (moles/volume) 106 mmol/L 98-107 Carbon dioxide 19 mmol/L 21-32 Serum or plasma anion gap determination (moles/volume) 14 mmol/L 5-14 Serum or plasma urea nitrogen measurement (mass/volume ) 34 mg/dL 7-18 Serum or plasma creatinine measurement (mass/volume) 1.02 mg/dL 0.60-1.30 Serum or plasma urea nitrogen/creatinine mass ratio 33 NRG Serum or plasma creatinine measurement w ith calculation of estimated glomerular filtration rate 54 NRG Serum or plasma glucose measurement (mass/volume) 102 mg/dL 70-105 Serum or plasma calcium measurement (mass/volume) 9.3 mg/dL 8.5-10.1 Blood manual differential performed dete ction - 10/23/18 04:51 Blood monocytes/100 leukocytes 8 % NRG Manual blood segmented neutrophils/100 leukocytes 86 % NRG Manual blood lymphocytes/100 leukocytes 6 % NRG Encounters ACCT No. Visit Date/Time Discharge Status Pt. Type Provider Facility Loc./Unit Complaint [id number] 08/26/2019 12:41:00 020 14:22:00 DIS Emergency [employer] [facility] ER N/V/D;CHILLS;LEFT HIP P AIN [id number] 06/17/2019 09:36:00 23:59:59 CLS Outpatient CITLALI PRADO MD, FACC, FACP CC [facility] CARD CAD,PULMONA RY HTN [id number] 10/21/2018 12:17:00 019 12:17:00 CAN Inpatient KIT AMBRIZ MD [facility] 4TH COPD ACUTE EXACERBATION [id number] 09/14/2018 07:41:00 019 23:59:59 CLS Outpatient CITLALI PRADO MD, FACC, FACP CC [facility] CARD CAD, HYPERL IPIDEMIA [id number] 05/02/2017 19:16:00 017 20:44:00 DIS Emergency VERONICA DOJERRIA [facility] ER VOMITING,DIARRHEA [id number] 03/17/2017 10:36:00 017 23:59:59 CLS Outpatient JOHAN GREGORY FACC, CITLALI FACP CC [facility] CARD CAD [id number] 11/18/2016 09:42:00 017 11:09:00 DIS Emergency FRANNIE GREGORY, NATALIO Cassidy [facility] ER CHEST PAIN [id number] 01/22/2016 06:42:00 016 12:45:00 DIS Outpatient JOHAN GREGORY FACC, CITLALI FACP CC [facility] CATH CAD,SCB,FAT IGUE,HTN [id number] 04/25/2014 07:34:00 014 23:59:59 CLS Outpatient JOHAN GREGORY FACC, CITLALI MARTINP CC [facility] CARD STATUS POST CABG,CP,DYSPNEA, HTN [id number] 05/20/2013 09:02:00 013 23:59:59 CLS Outpatient JOHAN GREGORY FACC, CITLALI MARTINP CC [facility] CARD HTN [id number] 02/10/2013 12:07:00 013 23:59:59 CLS Outpatient SHAMIKA ABEBE [facility] RAD LUIS ANTONIO HERNADEZ RT LOWER EXT,PAIN [id number] 01/24/2013 14:00:00 013 22:15:00 DIS Outpatient JOHAN GREGORY FACC, CITLALI MARTINP CC DS [facility] CATH ANGINA,CAD, HL,HTN [id number] 08/15/2014 06:40:00 Document Registration [id number] 07/31/2014 11:20:00 Document Registration [id number] 08/24/2012 08:54:00 Document Registration [id number] 06/30/2012 14:42:00 Document Registration
== END 2019-08-26 14:22 | disposition home or self-care (01) ==
LOC: EDUNIT# 12:40 → ER 12:41
DX: S33.5XXA Sprain of ligaments of lumbar spine, initial encounter (principal); R11.2 Nausea with vomiting, unspecified; R19.7 Diarrhea, unspecified; J44.9 Chronic obstructive pulmonary disease, unspecified; I10 Essential (primary) hypertension; I25.2 Old myocardial infarction; E78.00 Pure hypercholesterolemia, unspecified; I25.10 Atherosclerotic heart disease of native coronary artery without angina pectoris; Z96.653 Presence of artificial knee joint, bilateral; Z88.1 Allergy status to other antibiotic agents; Z88.8 Allergy status to other drugs, medicaments and biological substances; Z79.82 Long term (current) use of aspirin; Z79.02 Long term (current) use of antithrombotics/antiplatelets; Z90.49 Acquired absence of other specified parts of digestive tract; Z95.1 Presence of aortocoronary bypass graft; Z90.89 Acquired absence of other organs; X58.XXXA Exposure to other specified factors, initial encounter
CPT/HCPCS: 72100; 96372

== ENCOUNTER → 2020-11-27 | Outpatient (CLI) | payer OTHER ==
[~2020-11-27] VITALS: Ht 149 cm; Wt 114.0 kg
[~2020-11-27] MED LIST changes: +AMLO-251 PO; -AMLO10TA7 PO; +ASPI-1238 PO; -ASPI-983 PO; +CATHETER FLUSH 10 ML SYR IV PRN; +ONDA4TAB11 PO; +REGADENOSON 0.4 MG/5 ML SYR (LEXISCAN) IV ONE
[2020-11-27 09:42] VITALS: BP 182/96
--- NOTE | 2020-11-29 11:01 | STRESS TEST ---
DATE OF SERVICE: 11/27/2020 RESTING AND POST REGADENOSON TECHNETIUM-99M TETROFOSMIN SPECT CT IMAGING ORDERING PHYSICIAN: Olivia Rondon APRN CLINICAL DIAGNOSIS: Chest discomfort. Baseline images were carried out after injection of 10.47 mCi of technetium-99m Tetrofosmin. This was followed by 0.4 mg regadenoson and 31.1 mCi of technetium-99m Tetrofosmin for stress imaging. The electrocardiogram showed sinus rhythm at baseline. It did not change significantly with the regadenoson infusion. Review of images at rest and following stress does not indicate any significant perfusion defects consistent with significant myocardial ischemia or infarction. Gated images show normal global left ventricular systolic function with normal regional wall motion. Left ventricular ejection fraction is calculated to be 76%. Left ventricular end diastolic volume is 37 mL. TID is absent (1.12). CONCLUSIONS: 1. No evidence of any significant myocardial ischemia or infarction on this study. 2. Normal regional wall motion. 3. Normal global left ventricular systolic function with a calculated ejection fraction of 76%. Job ID: [id number] DocumentID: [id number] Dictated Date: 11/29/2020 09:52:39 Artist And Reperto[employer] Manager Date: 11/29/2020 11:00:52 Dictated By: CITLALI PRADO MD, MA, FACP, FACC,
== END ==
LOC: CARD 08:30
PROVIDERS: ATTEND Nurse Practitioner Family
DX: R07.89 Other chest pain (principal)
CPT/HCPCS: 78452; 93017; A9502

== ENCOUNTER 2021-09-03 08:24 | Emergency (ER) | payer OTHER ==
[~2021-09-03] VITALS: Ht 147 cm; Wt 108.0 kg
[~2021-09-03 08:24] MED LIST changes: -CATHETER FLUSH 10 ML SYR IV PRN; -REGADENOSON 0.4 MG/5 ML SYR (LEXISCAN) IV ONE
[2021-09-03] MEDS ORDERED: predniSONE 20 MG TAB PO ONE (09:00)
[2021-09-03] MEDS ORDERED: morphine INJ 10 MG/ML 1ML (SYR OR VIAL) IVP STA ×2 (09:06→12:46)
[2021-09-03] MEDS ORDERED: ONDANSETRON 4 MG (ZOFRAN) ORAL DISSOLVE TAB PO STA (09:06)
--- NOTE | 2021-09-03 09:11 | ED Back Pain ---
General Chief Complaint: Back Problems Stated Complaint: R HIP PAIN Nursing Triage Note: ARRIVED VIA AMB TO ROOM 03 WITH COMPLAINTS OF RIGHT LOWER BACK PAIN. STATES SHE DOES NOT KNOW IF IT IS HER KIDNEYS OR HER HIP. DENIES INJURY. STATES IT STARTED SUDDENLY THIS AM. PT HAS TAKEN X2 IBUPROFEN. PT IS VERY SOA ET STATES SHE USUALLY WEARS OXYGEN BUT DID NOT WEAR IT TO THE ER. Source of Information: Patient Exam Limitations: No Limitations ([employer] STUDENT) History of Present Illness Date Seen by Provider: Sep 03, 2021 Time Seen by Provider: 08:50 Initial Comments Patient is a 71 year old female who presents to the ED with complaints of right hip pain. Reports that the pain started at 0600 this am. Reports she drove to work this am and then developed excruciating pain in her right hip a 10/10. Describes it to be constant and sharp. Took two ibuprofen without any relief of symptoms. Nothing makes the pain better. Nothing makes the pain worse. She has had some associated nausea and lightheadedness as well. Denies chest pain, headache, loss of bowel or bladder control, and fevers. Reports worsening exertional SOB. Appears uncomfortable and is tachypneic to the mid 20's. Location: Other (Near PSIS right side) Timing/Duration: 1-3 Hours Severity: Severe Pain/Injury Location: Other (Right sided SI joint) Method of Injury: Unknown Associated Symptoms: No fever, No weakness, No numbness in legs/feet, No tingling in legs/feet, No sensory/motor loss, No loss of bladder control, No loss of bowel control ([employer]J [employer] STUDENT) Allergies and Home Medications Allergies Coded Allergies: morphine (Verified Allergy, Severe, HIVE, ITCHING, 09/03/21) ciprofloxacin (Verified Allergy, Unknown, 10/21/18) cortisone (Verified Allergy, Unknown, 10/21/18) lovastatin (Verified Allergy, Unknown, 10/21/18) ALLERGY LISTED ON GO CART MECHANIC ORDER 01/22/16 Patient Home Medication List Home Medication List Reviewed: Yes (MIGUEL BALTAZAR) Acetaminophen (Tylenol Extra Strength) 500 Mg Tablet, 1,000 MG PO HS PRN for PAIN-MILD, (Reported) Entered as Reported by: MARIA FERNANDA MORTENSEN on 10/22/18 0930 Albuterol Sulfate (Proair Hfa) 1 Puff Puff, 2 PUFF IH Q4H PRN for WHEEZING Prescribed by: ULICES DURBIN on 10/23/18 1420 Aspirin (Aspirin EC) 81 Mg Tablet.dr, 81 MG PO DAILY, (Reported) Entered as Reported by: MARIA FERNANDA MORTENSEN on 10/22/18929 Atorvastatin Calcium (Atorvastatin Calcium) 40 Mg Tablet, 40 MG PO HS, (Reported) Entered as Reported by: MARIA FERNANDA MORTENSEN on 10/22/18929 Cephalexin (Cephalexin) 500 Mg Tablet, 500 MG PO BID Prescribed by: MIGUEL BALTAZAR on 09/03/21 1412 Clopidogrel Bisulfate (Clopidogrel) 75 Mg Tablet, 75 MG PO HS, (Reported) Entered as Reported by: MARIA FERNANDA MORTENSEN on 10/22/18929 Furosemide (Furosemide) 20 Mg Tablet, 20 MG PO TWICE WEEKLY PRN for SWELLING, (Reported) Entered as Reported by: MARIA FERNANDA MORTENSEN on 10/22/18929 Hydrocodone/Acetaminophen (Hydrocodone-Acetamin 5-325 mg) 1 Each Tablet, 1 TAB PO Q6H PRN for PAIN-MODERATE (5-7) Prescribed by: CHRISTINA GONZALES on 09/03/21 1301 Losartan/Hydrochlorothiazide (Losartan-Hctz 50-12.5 mg Tab) 1 Each Tablet, 1 TAB PO DAILY, (Reported) Entered as Reported by: MARIA FERNANDA MORTENSEN on 10/22/18929 Metoprolol Tartrate (Metoprolol Tartrate) 50 Mg Tablet, 50 MG PO BID, (Reported) Entered as Reported by: ZEINAB LOUISE on 01/22/16 0725 Naproxen Sodium (Aleve) 220 Mg Tablet, 440 MG PO Q8H PRN for PAIN-MILD, (Reported) Entered as Reported by: MARIA FRENANDA MORTENSEN on 10/22/18 09 Ondansetron (Ondansetron Odt) 4 Mg Tab.rapdis, 8 MG PO Q6H PRN for NAUSEA/VOMITING Prescribed by: CUONG CLARKE on 08/26/19 1413 Ondansetron (Ondansetron Odt) 4 Mg Tab.rapdis, 4 MG PO Q8H PRN for nausea Prescribed by: CHRISTINA GONZALES on 09/03/21 1300 Prednisone (Prednisone) 10 Mg Tab, 0 PO DAILY@0700 Prescribed by: ULICES DURBIN on 10/23/18 1420 Tamsulosin HCl (Flomax) 0.4 Mg Cap, 0.4 MG PO DAILY Prescribed by: CHRISTINA GONZALES on 09/03/21 1300 Review of Systems Constitutional: no symptoms reported; No chills, No diaphoresis; dizziness; No fever, No malaise EENTM: no symptoms reported; No blurred vision, No double vision Respiratory: No cough; dyspnea on exertion Cardiovascular: No no symptoms reported, No chest pain, No edema Gastrointestinal: No abdominal pain, No constipation, No diarrhea Genitourinary: no symptoms reported; No discharge, No dysuria Musculoskeletal: see HPI, back pain Skin: no symptoms reported; No change in color, No change in hair/nails Psychiatric/Neurological: No Symptoms Reported; Denies Anxiety, Denies Depressed ([employer] STUDENT) All Other Systems Reviewed Negative Unless Noted: Yes ([employer] STUDENT) Past Ckvnzcw-Hdchyy-Giiiag Hx Patient Social History Tobacco Use?: No Smoking Status: Never a Smoker Use of E-Cig and/or Vaping dev: No Use of E-Cig and/or Vaping Vikas: Never a User Substance use?: No Alcohol Use?: No ([employer] STUDENT) Immunizations Up To Date Tetanus Booster (TDap): Unknown ([employer]J [employer] STUDENT) Seasonal Allergies Seasonal Allergies: Yes (SJ CASANOVA) Past Medical History Surgeries: Yes Abdominal, Appendectomy, Cardiac, CABG, Coronary Stent, Gallbladder, Hysterectomy, Joint Replacement, Orthopedic, Tonsillectomy, Tubal Ligation Respiratory: Yes Sleep Apnea, COPD Currently Using CPAP: Yes Currently Using BIPAP: No Cardiac: Yes (CABG AND STENT X 1) Coronary Artery Disease, Heart Attack, High Cholesterol, Hypertension Neurological: No Reproductive Disorders: No Female Reproductive Disorders: Denies [employer] 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 History: Hysterectomy, Tubal Ligation, Menopausal Genitourinary: No Gastrointestinal: Yes (HIATAL HERNIA/INGUINAL HERNIA--S/P REPAIRS; S/P YIMI) Abdominal Hernia, Gastroesophageal Reflux, Hiatal Hernia, Gall Bladder Disease Musculoskeletal: Yes (S/P BILATEARL KNEE REPLACEMENT) Arthritis Endocrine: Yes Hypothyroidsim HEENT: No Loss of Vision: Denies Hearing Impairment: Denies Cancer: No Psychosocial: No Integumentary: No Blood Disorders: No ([employer] STUDENT) Family Medical History No Pertinent Family Hx ([employer] STUDENT) Physical Exam Vital Signs Vital Signs - First Documented 09/03/21 08:35 Temp 36.3 Pulse 59 Resp 16 B/P (MAP) 198/77 (117) Pulse Ox 71 O2 Delivery Room Air (CHRISTINA GONZALES MD) Vital Signs Capillary Refill : Less Than 3 Seconds ([employer] STUDENT) Height, Weight, BMI Height: 4'11.00" Weight: 248lbs. 5.0oz. 112.691411mr; 49.00 BMI Method:Stated General Appearance: Chronically ill, Obese HEENT: PERRL/EOMI, Moist Mucous Membranes Neck: Full Range of Motion, Normal Inspection, Non Tender Cardiovascular: No Edema, Normal Peripheral Pulses Respiratory: Chest Non Tender, Lungs Clear, Decreased Breath Sounds Peripheral Pulses: 2+ Radial Pulses (R), 2+ Radial Pulses (L) Gastrointestinal: Normal Bowel Sounds, Non Tender, Soft; No Distended, No Guarding Back: Normal Inspection, No Vertebral Tenderness Extremity: Normal Capillary Refill, Non Tender, No Calf Tenderness, Other (Right buttock near PSIS tender to palpation. No obvious lesions or rash. ) Neurologic/Psychiatric: Alert, Oriented x3, Normal Mood/Affect Skin: Normal Color, Warm/Dry Lymphatic: No Adenopathy (head and neck) ([employer]J [employer] STUDENT) Progress/Results/Core Measures Results/Orders Lab Results Laboratory Tests Test 09/03/21 09:05 09/03/21 10:30 Range/Units Urine Color YELLOW Urine Clarity CLEAR Urine pH 5.5 5-9 Urine Specific [place] 1.025 H 1.016-1.022 Urine Protein 2+ H NEGATIVE Urine Glucose (UA) NEGATIVE NEGATIVE Urine Ketones NEGATIVE NEGATIVE Urine Nitrite NEGATIVE NEGATIVE Urine Bilirubin 1+ H NEGATIVE Urine Urobilinogen 0.2 < = 1.0 MG/DL Urine Leukocyte Esterase TRACE H NEGATIVE Urine RBC (Auto) 3+ H NEGATIVE Urine RBC 50-100 H /HPF Urine WBC 0-2 /HPF Urine Crystals PRESENT H /LPF Urine Uric Acid Crystals FEW H /LPF Urine Amorphous Sediment FEW GRECIA URATES H /LPF Urine Bacteria FEW H /HPF Urine Casts NONE /LPF Urine Mucus NEGATIVE /LPF Urine Culture Indicated YES White Blood Count 12.1 H 4.3-11.0 10^3/uL Red Blood Count 4.48 3.80-5.11 10^6/uL Hemoglobin 12.8 11.5-16.0 g/dL Hematocrit 41 35-52 % Mean Corpuscular Volume 91 80-99 fL Mean Corpuscular Hemoglobin 29 25-34 pg Mean Corpuscular Hemoglobin Concent 31 L 32-36 g/dL Red Cell Distribution Width 15.0 H 10.0-14.5 % Platelet Count 333 130-400 10^3/uL Mean Platelet Volume 9.6 9.0-12.2 fL Immature Granulocyte % (Auto) 1 % Neutrophils (%) (Auto) 86 H 42-75 % Lymphocytes (%) (Auto) 6 L 12-44 % Monocytes (%) (Auto) 5 0-12 % Eosinophils (%) (Auto) 2 0-10 % Basophils (%) (Auto) 1 0-10 % Neutrophils # (Auto) 10.4 H 1.8-7.8 10^3/uL Lymphocytes # (Auto) 0.8 L 1.0-4.0 10^3/uL Monocytes # (Auto) 0.6 0.0-1.0 10^3/uL Eosinophils # (Auto) 0.2 0.0-0.3 10^3/uL Basophils # (Auto) 0.1 0.0-0.1 10^3/uL Immature Granulocyte # (Auto) 0.1 0.0-0.1 10^3/uL Neutrophils % (Manual) 75 % Lymphocytes % (Manual) 11 % Monocytes % (Manual) 7 % Eosinophils % (Manual) 1 % Band Neutrophils 6 % Polychromasia SLIGHT Anisocytosis SLIGHT Sodium Level 140 135-145 MMOL/L Potassium Level 4.9 3.6-5.0 MMOL/L Chloride Level 105 98-107 MMOL/L Carbon Dioxide Level 21 21-32 MMOL/L Anion Gap 14 5-14 MMOL/L Blood Urea Nitrogen 22 H 7-18 MG/DL Creatinine 1.48 H 0.60-1.30 MG/DL Estimat Glomerular Filtration Rate 37 BUN/Creatinine Ratio 15 Glucose Level 139 H 70-105 MG/DL Calcium Level 9.0 8.5-10.1 MG/DL (CHRISTINA GONZALES MD) My Orders Orders - CHRISTINA GONZALES MD Prednisone Tablet (Deltasone Tablet) (09/03/21 09:00) Morphine Injection (Morphine Injection (09/03/21 09:06) Ondansetron Oral Dissolve Tab (Zofran (09/03/21 09:06) Orphenadrine Inj (Ed Only) (Norflex Inje (09/03/21 09:15) Ua Culture If Indicated (09/03/21 09:26) Urine Culture (09/03/21 09:05) Ed Iv/Invasive Line Start (09/03/21 10:18) Cbc With Automated Diff (09/03/21 10:18) Basic Metabolic Panel (09/03/21 10:18) Ct Abd/Pelvis Wo(Kidney Stone) (09/03/21 10:18) Manual Differential (09/03/21 10:30) Morphine Injection (Morphine Injection (09/03/21 12:46) (CHRISTINA GONZALES MD) Medications Given in ED Current Medications Medications Dose Ordered Sig/Ivy Route Start Time Stop Time Status Last Admin Dose Admin Orphenadrine Citrate 60 mg ONCE ONCE IM 09/03/21 09:15 09/03/21 09:16 DC 09/03/21 09:40 60 MG Prednisone 50 mg ONCE ONCE PO 09/03/21 09:00 09/03/21 09:01 DC 09/03/21 09:43 50 MG (CHRISTINA GONZALES MD) Vital Signs/I&O 09/03/21 08:35 Temp 36.3 Pulse 59 Resp 16 B/P (MAP) 198/77 (117) Pulse Ox 71 O2 Delivery Room Air (CHRISTINA GONZALES MD) Blood Pressure Mean: 117 Progress Progress Note : Time: 13:01 Progress Note Patient seen and examined, reproducible right sided posterior superior iliac crest pain. Patient also coincidentally urinated for us here in the department it was noted to be dark brownish-red. Urinalysis was obtained and was noted to be filled with blood. Gross hematuria. No signs of infection. Subsequently basic laboratory studies were obtained as well as CT noncontrast to rule out kidney stone. Patient is found to have a right ureteral kidney stone with mild to moderate hydronephrosis. She is given another dose of pain medicine for recurrence of her pain. We will follow this with some Flomax. Once we get her pain controlled anticipate she will be able to be discharged home. Follow-up with Dr. Escoto. Care is passed to Dr. Baltazar to make sure that she has adequate pain relief prior to discharge (CHRISTINA GONZALES MD) Departure Impression Primary Impression: Sacro-iliac pain Additional Impression: Right renal stone Disposition: HOME, SELF-CARE Condition: Improved Departure-Patient Inst. Decision time for Depature: 12:59 (CHRISTINA GONZALES MD) Referrals: [facility],LOCAL PHYSICIAN (PCP) Primary Care Physician STEFFI ESCOTO MD Patient Instructions: Kidney Stones (DC) Add. Discharge Instructions: Strain your urine to see if you catch the stone. If you are still having symptoms by tomorrow morning call Dr. Escoto, urology and request follow-up appointment. Flomax once a day to help pass the stone. Drink lots of fluids to help pass the stone. Ibuprofen 800 mg every 8 hours as necessary for pain. Hydrocodone 1 tablet every 6 hours as needed for pain. Zofran 1 tablet every 6 hours as needed for nausea or vomiting. Return to the ER for intractable pain or nausea or during the day you can follow-up with the urologist. Topical creams and heating pads on your back are also helpful for your back pain. All discharge instructions reviewed with patient and/or family. Voiced understanding. Scripts Cephalexin (Cephalexin) 500 Mg Tablet 500 MG PO BID for 7 Days, #14 TAB 0 Refills Prov: MIGUEL BALTAZAR 09/03/21 Ondansetron (Ondansetron Odt) 4 Mg Tab.rapdis 4 MG PO Q8H PRN for nausea, #20 TAB Prov: CHRISTINA GONZALES MD 09/03/21 Hydrocodone/Acetaminophen (Hydrocodone-Acetamin 5-325 mg) 1 Each Tablet 1 TAB PO Q6H PRN for PAIN-MODERATE (5-7), #15 TAB Prov: CHRISTINA GONZALES MD 09/03/21 Tamsulosin HCl (Flomax) 0.4 Mg Cap 0.4 MG PO DAILY for 14 Days, #14 CAP Prov: CHRISTINA GONZALES MD 09/03/21 Work/School Note: Work Release Form Date Seen in the Emergency Department: Federico 2021 Return to Work: Sep 05, 2021 Restrictions: No Restrictions Verification and Attestation of Medical Student E/M Service A medical student performed and documented this service in my presence. I reviewed and verified all information documented by the medical student and made modifications to such information, when appropriate. I personally performed the physical exam and medical decision making. Christina Gonzales, Sep 03, 2021,13:02 (CHRISTINA GONZALES MD) Copy Copies To 1: STEFFI ESCOTO MD, [employer] STUDENT Sep 03, 2021 09:11 CHRISTINA GONZALES MD Sep 03, 2021 13:02 MIGUEL BALTAZAR Sep 03, 2021 13:15
[2021-09-03] MEDS ORDERED: ORPHENADRINE 60 MG/2 ML (NORFLEX) AMP (ED ONLY) IM ONE (09:15)
[2021-09-03 09:32] LABS: BILIRUBIN,URINE 1+ (NEGATIVE); CLARITY,URINE CLEAR; COLOR,URINE YELLOW; GLUCOSE, URINE (UA) NEGATIVE (NEGATIVE); KETONES,URINE NEGATIVE (NEGATIVE); LEUKOCYTE ESTERASE ,URINE TRACE (NEGATIVE); NITRITE,URINE NEGATIVE (NEGATIVE); PH,URINE 5.5 (5-9); PROTEIN,URINE 2+ (NEGATIVE)
[2021-09-03 09:58] LABS: AMORPHOUS SEDIMENT,UR FEW AMOR URATES /LPF; BACTERIA,URINE FEW /HPF; RBC,URINE 50-100 /HPF; URIC ACID CRYSTALS,URINE FEW /LPF; WBC,URINE 0-2 /HPF
[2021-09-03 10:39] LABS: BASOPHILS # (AUTO) 0.1 10^3/uL (0.0-0.1); BASOPHILS % (AUTO) 1 % (0-10); EOSINOPHILS # (AUTO) 0.2 10^3/uL (0.0-0.3); EOSINOPHILS % (AUTO) 2 % (0-10); HEMATOCRIT 41 % (35-52); HEMOGLOBIN 12.8 g/dL (11.5-16.0); LYMPHOCYTES # (AUTO) 0.8 10^3/uL (1.0-4.0); LYMPHOCYTES % (AUTO) 6 % (12-44); MEAN CORPUSCULAR HEMOGLOBIN 29 pg (25-34); MEAN CORPUSCULAR HGB CONC 31 g/dL (32-36); MEAN CORPUSCULAR VOLUME 91 fL (80-99); MEAN PLATELET VOLUME 9.6 fL (9.0-12.2); MONOCYTES # (AUTO) 0.6 10^3/uL (0.0-1.0); MONOCYTES % (AUTO) 5 % (0-12); NEUTROPHILS # (AUTO) 10.4 10^3/uL (1.8-7.8); NEUTROPHILS % (AUTO) 86 % (42-75); PLATELET COUNT 333 10^3/uL (130-400); WHITE BLOOD COUNT 12.1 10^3/uL (4.3-11.0)
[2021-09-03 10:55] LABS: CREATININE SERUM 1.48 MG/DL (0.60-1.30); POTASSIUM 4.9 MMOL/L (3.6-5.0)
[2021-09-03 10:56] LABS: ANISOCYTOSIS SLIGHT; BAND NEUTROPHILS 6 %; EOSINOPHILS % (MANUAL) 1 %; LYMPHOCYTES % (MANUAL) 11 %; MONOCYTES % (MANUAL) 7 %; NEUTROPHILS % (MANUAL) 75 %; POLYCHROMASIA SLIGHT
--- NOTE | 2021-09-03 12:44 | Diagnostic Imaging Report ---
PROCEDURE: CT urinary tract, rule out kidney stone. TECHNIQUE: Multiple contiguous axial images were obtained through the abdomen and pelvis without the use of intravenous contrast. Auto Exposure Controls were utilized during the CT exam to meet ALARA standards for radiation dose reduction. INDICATION: Flank pain Unenhanced images of liver and spleen reveal no focal abnormality. Gallbladder surgically absent without evidence of biliary ductal dilatation. There is also no evidence of pancreatic, adrenal gland or left renal abnormality. There is mild right hydronephrosis. 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 Right ureter is also dilated to the level of an approximately 0.5 cm calculus in the distal right ureter. There is no evidence of free fluid in the abdomen or pelvis. There is mild aortoiliac atherosclerotic calcification. Unopacified images of the bladder are unremarkable. IMPRESSION: At least partially obstructing 0.5 cm distal right ureteric calculus with right hydronephrosis and hydroureter. Dictated by: Dictated on workstation # [id number]
[2021-09-03] MEDS ORDERED: ACHD5005 PO (13:00)
[2021-09-03] MEDS ORDERED: ONDA4TAB11 PO (13:00)
[2021-09-03] MEDS ORDERED: TMSL.4C PO (13:00)
[2021-09-03] MEDS ORDERED: diphenhydrAMINE 50 MG/ML INJ (BENADRYL) IVP ONE (13:15)
[2021-09-03] MEDS ORDERED: TAMSULOSIN 0.4 MG (FLOMAX) CAP PO ONE (13:16)
[2021-09-03] MEDS ORDERED: CEPH500T PO (14:12)
[2021-09-03 14:28] VITALS: BP 193/84
--- NOTE | 2021-09-03 15:03 | Diagnostic Imaging Report ---
ABDOMEN/KUB 1VIEW INDICATION: Right-sided flank pain. COMPARISON: CT abdomen and pelvis from 09/03/2021. TECHNIQUE: AP view of the abdomen. FINDINGS: There are a few mineralizations in the right hemipelvis which are likely due to phleboliths. The 5 mm distal right ureteral stone cannot be confirmed with certainty. Nonobstructive bowel gas pattern. Cholecystectomy clips. IMPRESSION: Distal right ureteral stone seen on CT cannot be definitively seen with radiography. Dictated by: Dictated on workstation # [id number]
[2021-09-03] MEDS ORDERED: TAMSULOSIN 0.4 MG (FLOMAX) CAP PO SCH (18:00)
== END 2021-09-03 14:28 | disposition home or self-care (01) ==
LOC: EDUNIT# 08:24 → ER 08:25
DX: N13.2 Hydronephrosis with renal and ureteral calculous obstruction (principal); M53.3 Sacrococcygeal disorders, not elsewhere classified; E66.9 Obesity, unspecified; Z68.42 Body mass index [BMI] 45.0-49.9, adult
CPT/HCPCS: 36415; 74018; 74176; 80048; 81000; 85007; 85027; 87088

== ENCOUNTER → 2021-09-06 | Outpatient (CLI) | payer OTHER ==
[~2021-09-06] MED LIST changes: +ACHD5005 PO; +CEPH500T PO; +TMSL.4C PO
== END ==
LOC: LAB 15:18
PROVIDERS: ATTEND Nurse Practitioner Family
DX: N20.0 Calculus of kidney (principal)

== ENCOUNTER 2022-03-26 22:11 | Emergency (ER) | payer OTHER ==
[~2022-03-26] VITALS: Ht 147 cm; Wt 108.0 kg
[2022-03-26 22:54] LABS: BASOPHILS # (AUTO) 0.1 10^3/uL (0.0-0.1); BASOPHILS % (AUTO) 1 % (0-10); EOSINOPHILS # (AUTO) 0.1 10^3/uL (0.0-0.3); EOSINOPHILS % (AUTO) 0 % (0-10); HEMATOCRIT 42 % (35-52); HEMOGLOBIN 13.8 g/dL (11.5-16.0); LYMPHOCYTES # (AUTO) 1.7 10^3/uL (1.0-4.0); LYMPHOCYTES % (AUTO) 11 % (12-44); MEAN CORPUSCULAR HEMOGLOBIN 29 pg (25-34); MEAN CORPUSCULAR HGB CONC 33 g/dL (32-36); MEAN CORPUSCULAR VOLUME 90 fL (80-99); MEAN PLATELET VOLUME 9.8 fL (9.0-12.2); MONOCYTES # (AUTO) 1.2 10^3/uL (0.0-1.0); MONOCYTES % (AUTO) 8 % (0-12); NEUTROPHILS # (AUTO) 12.6 10^3/uL (1.8-7.8); NEUTROPHILS % (AUTO) 78 % (42-75); PLATELET COUNT 372 10^3/uL (130-400)
--- NOTE | 2022-03-26 22:58 | ED Back Pain ---
General Chief Complaint: Back Problems Stated Complaint: R SIDE LOW BACK PAIN,NAUSEA Nursing Triage Note: c/o right flank pain, nausea today. reports hx of renal stones. Source of Information: Patient History of Present Illness Date Seen by Provider: Mar 26, 2022 Time Seen by Provider: 22:40 Initial Comments PT ARRIVES VIA POV FROM HOME C/O RIGHT FLANK PAIN SINCE 1400 TODAY PAIN IS CONSTANT, AND NO RADIATION OF PAIN NOTHING WORSENS OR IMPROVES PAIN HAS HAD NAUSEA AND DRY HEAVES SUBJECTIVE FEVER NO URINARY SYMPTOMS AND URINE IS A NORMAL COLOR NO RELIEF WITH IBUPROFEN X 1 THIS AFTERNOON AND HYDROCODONE X 1 AT 2100 HAS HISTORY OF KIDNEY STONES, AND THIS FEELS THE SAME. PASSED PREVIOUS STONES ON HER OWN. HAS NOT SEEN A UROLOGIST. Other Comments [facility] VIRT[facility] ARCHITECT: DR. PRADO Allergies and Home Medications Allergies Coded Allergies: morphine (Verified Allergy, Severe, HIVE, ITCHING, 09/03/21) ciprofloxacin (Verified Allergy, Unknown, 10/21/18) cortisone (Verified Allergy, Unknown, 10/21/18) lovastatin (Verified Allergy, Unknown, 10/21/18) ALLERGY LISTED ON IMPROVEMENT DIRECTOR ORDER 01/22/16 Patient Home Medication List Home Medication List Reviewed: Yes Acetaminophen (Tylenol Extra Strength) 500 Mg Tablet, 1,000 MG PO HS PRN for PAIN-MILD, (Reported) Entered as Reported by: MARIA FERNANDA MORTENSEN on 10/22/18929 Albuterol Sulfate (Proair Hfa) 1 Puff Puff, 2 PUFF IH Q4H PRN for WHEEZING Prescribed by: ULICES DURBIN on 10/23/18 1420 Aspirin (Aspirin EC) 81 Mg Tablet., 81 MG PO DAILY, (Reported) Entered as Reported by: MARIA FERNANDA MORTENSEN on 10/22/18 09 Atorvastatin Calcium (Atorvastatin Calcium) 40 Mg Tablet, 40 MG PO HS, (Reported) Entered as Reported by: MARIA FERNANDA MORTENSEN on 10/22/18929 Cephalexin (Cephalexin) 500 Mg Tablet, 500 MG PO BID Prescribed by: MIGUEL RIVERA on 09/03/21 1412 Clopidogrel Bisulfate (Clopidogrel) 75 Mg Tablet, 75 MG PO HS, (Reported) Entered as Reported by: MARIA FERNANDA MORTENSEN on 10/22/18929 Furosemide (Furosemide) 20 Mg Tablet, 20 MG PO TWICE WEEKLY PRN for SWELLING, (Reported) Entered as Reported by: MARIA FERNANDA MORTENSEN on 10/22/18 0930 Hydrocodone/Acetaminophen (Hydrocodone-Acetamin 5-325 mg) 1 Each Tablet, 1 TAB PO Q6H PRN for PAIN-MODERATE (5-7) Prescribed by: CHRISTINA GONZALES on 09/03/21 1301 Losartan/Hydrochlorothiazide (Losartan-Hctz 50-12.5 mg Tab) 1 Each Tablet, 1 TAB PO DAILY, (Reported) Entered as Reported by: MARIA FERNANDA MORTENSEN on 10/22/18 0930 Metoprolol Tartrate (Metoprolol Tartrate) 50 Mg Tablet, 50 MG PO BID, (Reported) Entered as Reported by: ZEINAB LOUISE on 01/22/16 0725 Naproxen Sodium (Aleve) 220 Mg Tablet, 440 MG PO Q8H PRN for PAIN-MILD, (Reported) Entered as Reported by: MARIA FERNANDA MORTENSEN on 10/22/18 0930 Ondansetron (Ondansetron Odt) 4 Mg Tab.rapdis, 8 MG PO Q6H PRN for NAUSEA/VOMITING Prescribed by: CUONG CLARKE on 08/26/19 1413 Ondansetron (Ondansetron Odt) 4 Mg Tab.rapdis, 4 MG PO Q8H PRN for nausea Prescribed by: CHRISTINA GONZALES on 09/03/21 1300 Prednisone (Prednisone) 10 Mg Tab, 0 PO DAILY@0700 Prescribed by: ULICES DURBIN on 10/23/18 1420 Tamsulosin HCl (Flomax) 0.4 Mg Cap, 0.4 MG PO DAILY Prescribed by: CHRISTINA GONZALES on 09/03/21 1300 Review of Systems Constitutional: no symptoms reported Respiratory: no symptoms reported Cardiovascular: no symptoms reported Gastrointestinal: see HPI, abdominal pain, nausea, vomiting Genitourinary: no symptoms reported Musculoskeletal: see HPI, back pain Skin: no symptoms reported Psychiatric/Neurological: No Symptoms Reported Past [id number]-[id number] Hx Patient Social History Tobacco Use?: No Substance use?: No Alcohol Use?: No Pt feels they are or have been: No Immunizations Up To Date Tetanus Booster (TDap): Unknown Seasonal Allergies Seasonal Allergies: Yes Past Medical History Surgery/Hospitalization HX: appy, cabg, cardiac stent, gallbladder, hysterectomy, t/a, cad, htn, mi, gerd, renal stones, sheri, home o2 Surgeries: Yes Abdominal, Appendectomy, Cardiac, CABG, Coronary Stent, Gallbladder, Hysterectomy, Joint Replacement, Oophorectomy, Orthopedic, Tonsillectomy, Tubal Ligation Respiratory: Yes (O2 AT 2L/NC CONTINUOUSLY) Sleep Apnea, COPD Currently Using CPAP: Yes Currently Using BIPAP: No Cardiac: Yes (CABG X 2 VESSELS AND STENT X 1) Coronary Artery Disease, Heart Attack, High Cholesterol, Hypertension Neurological: No Reproductive Disorders: Yes Female Reproductive Disorders: Menstrual Problems 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, Tubal Ligation, Menopausal Genitourinary: Yes Kidney Stones Gastrointestinal: Yes (HIATAL HERNIA/INGUINAL HERNIA--S/P REPAIRS; S/P YIMI) Abdominal Hernia, Gastroesophageal Reflux, Hiatal Hernia, Gall Bladder Disease Musculoskeletal: Yes (S/P BILATEARL KNEE REPLACEMENT) Arthritis, Chronic Back Pain Endocrine: Yes (MORBID OBESITY) Hypothyroidsim HEENT: Yes (S/P T&A) Tonsilitis Loss of Vision: Denies Hearing Impairment: Denies Cancer: No Psychosocial: No Integumentary: No Blood Disorders: No Family Medical History No Pertinent Family Hx SOCIAL HISTORY: -SMOKING--DENIES USE -ETOH--DENIES USE -DRUGS--DENIES USE PAST SURGICAL HISTORY: -CHOLECYSTECTOMY -APPENDECTOMY -BILATERAL TUBAL LIGATION -HYSTERECTOMY / BILATERAL SALPINGO-OOPHORECTOMY -CABG--2 VESSEL -CARDIAC CATHS WITH STENT X1 -BILATERAL TOTAL KNEE REPLACEMENT -BILATERAL CARPAL TUNNEL SURGERY -TONSILLECTOMY / ADENOIDECTOMY -HIATAL HERNIA REPAIR -INGUINAL HERNIA REPAIR Physical Exam Vital Signs Vital Signs - First Documented 03/26/22 22:19 Temp 36.0 Pulse 52 Resp 18 B/P (MAP) 193/101 (131) Pulse Ox 93 O2 Delivery Nasal Cannula O2 Flow Rate 2.00 Capillary Refill : Less Than 3 Seconds Height, Weight, BMI Height: 4'11.00" Weight: 248lbs. 5.0oz. 112.196354os; 49.00 BMI Method:Stated General Appearance: No Apparent Distress, WD/WN, Obese, Other (WALKS UPRIGHT AND MOVES WITHOUT DIFFICULT; FLAT AFFECT) Neck: Normal Inspection Cardiovascular: Regular Rate, Rhythm, No Murmur Respiratory: Chest Non Tender, Lungs Clear, No Accessory Muscle Use, No Respiratory Distress Gastrointestinal: Non Tender, Soft Back: Normal Inspection, No CVA Tenderness, No Vertebral Tenderness Extremity: Normal Inspection, No Pedal Edema Neurologic/Psychiatric: Alert, Oriented x3, No Motor/Sensory Deficits, pressurised container filler II- XII Norm as Tested Skin: Normal Color, Warm/Dry; No Rash Progress/Results/Core Measures Results/Orders Lab Results Laboratory Tests Test 03/26/22 22:46 03/26/22 22:48 03/26/22 22:56 03/27/22 00:36 Range/Units Procalcitonin 0.03 <0.10 NG/ML White Blood Count 16.0 H 4.3-11.0 10^3/uL Red Blood Count 4.69 3.80-5.11 10^6/uL Hemoglobin 13.8 11.5-16.0 g/dL Hematocrit 42 35-52 % Mean Corpuscular Volume 90 80-99 fL Mean Corpuscular Hemoglobin 29 25-34 pg Mean Corpuscular Hemoglobin Concent 33 32-36 g/dL Red Cell Distribution Width 15.0 H 10.0-14.5 % Platelet Count 372 130-400 10^3/uL Mean Platelet Volume 9.8 9.0-12.2 fL Immature Granulocyte % (Auto) 3 % Neutrophils (%) (Auto) 78 H 42-75 % Lymphocytes (%) (Auto) 11 L 12-44 % Monocytes (%) (Auto) 8 0-12 % Eosinophils (%) (Auto) 0 0-10 % Basophils (%) (Auto) 1 0-10 % Neutrophils # (Auto) 12.6 H 1.8-7.8 10^3/uL Lymphocytes # (Auto) 1.7 1.0-4.0 10^3/uL Monocytes # (Auto) 1.2 H 0.0-1.0 10^3/uL Eosinophils # (Auto) 0.1 0.0-0.3 10^3/uL Basophils # (Auto) 0.1 0.0-0.1 10^3/uL Immature Granulocyte # (Auto) 0.4 H 0.0-0.1 10^3/uL Neutrophils % (Manual) 86 % Lymphocytes % (Manual) 8 % Monocytes % (Manual) 6 % Polychromasia SLIGHT Spherocytes SLIGHT Sodium Level 141 135-145 MMOL/L Potassium Level 4.3 3.6-5.0 MMOL/L Chloride Level 105 98-107 MMOL/L Carbon Dioxide Level 23 21-32 MMOL/L Anion Gap 13 5-14 MMOL/L Blood Urea Nitrogen 37 H 7-18 MG/DL Creatinine 1.33 H 0.60-1.30 MG/DL Estimat Glomerular Filtration Rate 42 BUN/Creatinine Ratio 28 Glucose Level 114 H 70-105 MG/DL Calcium Level 8.7 8.5-10.1 MG/DL Corrected Calcium 8.9 8.5-10.1 MG/DL Total Bilirubin 0.9 0.1-1.0 MG/DL Aspartate Amino Transf (AST/SGOT) 19 5-34 U/L Alanine Aminotransferase (ALT/SGPT) 32 0-55 U/L Alkaline Phosphatase 86 40-136 U/L Total Protein 7.4 6.4-8.2 GM/DL Albumin 3.7 3.2-4.5 GM/DL Amylase Level 62 25-125 U/L Lipase 61 8-78 U/L Urine Color YELLOW Urine Clarity SL CLOUDY Urine pH 5.0 5-9 Urine Specific [place] >=1.030 1.016-1.022 Urine Protein 1+ H NEGATIVE Urine Glucose (UA) NEGATIVE NEGATIVE Urine Ketones NEGATIVE NEGATIVE Urine Nitrite NEGATIVE NEGATIVE Urine Bilirubin 1+ H NEGATIVE Urine Urobilinogen 0.2 < = 1.0 MG/DL Urine Leukocyte Esterase TRACE H NEGATIVE Urine RBC (Auto) 3+ H NEGATIVE Urine RBC 50-100 H /HPF Urine WBC 50-100 H /HPF Urine Squamous Epithelial Cells 0-2 /HPF Urine Renal Epithelial Cells NONE /HPF Urine Crystals PRESENT H /LPF Urine Amorphous Sediment FEW GRECIA URATES H /LPF Urine Bacteria LARGE H /HPF Urine Casts NONE /LPF Urine Mucus NEGATIVE /LPF Urine Culture Indicated YES Lactic Acid Level 2.19 *H 0.50-2.00 MMOL/L Test 03/27/22 02:50 03/27/22 05:18 Range/Units Lactic Acid Level 2.01 *H 1.44 0.50-2.00 MMOL/L Micro Results Microbiology 03/27/22 Blood Culture - Preliminary, Resulted No growth 03/27/22 Blood Culture - Preliminary, Resulted No growth 03/26/22 Urine Culture - Final, Complete NO GROWTH My Orders Orders - VERONICA,MAGALIE K DO Ed Iv/Invasive Line Start (03/26/22 22:40) Ct Abd/Pelvis Wo(Kidney Stone) (03/26/22 22:40) Abdomen/Kub 1view (03/26/22 22:40) Amylase (03/26/22 22:40) Cbc With Automated Diff (03/26/22 22:40) Comprehensive Metabolic Panel (03/26/22 22:40) Lipase (03/26/22 22:40) Ua Culture If Indicated (03/26/22 22:40) Ketorolac Injection (Toradol Injection) (03/26/22 23:00) Ondansetron Injection (Zofran Injectio (03/26/22 23:00) Manual Differential (03/26/22 22:48) Urine Culture (03/26/22 22:56) Hydralazine Injection (Apresoline Inject (03/26/22 23:30) O2 (03/26/22 23:16) Fentanyl Inj (Sublimaze Injection) (03/27/22 00:15) Lactic Acid Analyzer (03/27/22 00:23) Blood Culture (03/27/22 00:23) Procalcitonin (Pct) (03/27/22 00:23) Hydralazine Injection (Apresoline Inject (03/27/22 01:00) Fentanyl Inj (Sublimaze Injection) (03/27/22 01:00) Tamsulosin Capsule (Flomax Capsule) (03/27/22 01:00) Ed Iv/Invasive Line Start (03/27/22 01:03) Lactated Ringers (Lr 1000 Ml Iv Solution (03/27/22 01:15) Fentanyl Inj (Sublimaze Injection) (03/27/22 02:45) Oxycodone/Apap 5/325mg Tablet (Percocet (03/27/22 02:45) Ed Iv/Invasive Line Start (03/27/22 03:20) Lactated Ringers (Lr 1000 Ml Iv Solution (03/27/22 03:30) Medications Given in ED Vital Signs/I&O 03/26/22 03/26/22 03/27/22 03/27/2219 22:21 10:55 11:09 Temp 36.0 36.0 36.0 Pulse 52 58 Resp 18 18 B/P (MAP) 193/101 (131) 132/76 Pulse Ox 93 92 94 O2 Delivery Nasal Cannula Nasal Cannula Nasal Cannula O2 Flow Rate 2.00 2.00 2.00 2.00 Blood Pressure Mean: 131 Progress Progress Note : Progress Note GIVEN: -TORADOL -ZOFRAN -HYDRALAZINE FOR BLOOD PRESSURE -FENTANYL -ROCEPHIN -IV FLUIDS -FLOMAX -OXYCODONE FOCUS EXAM AT 0005--MEETS SEPSIS CRITERIA, WITH URINARY TRACT SUSPECTED SOURCE. EXAM IS UNCHANGED FROM ADMIT, ABDOMEN IS NON-TENDER, GOOD CAPILLARY REFILL. BP IS STILL ELEVATED, HR IN 50'S, AFEBRILE. 0600--CARE TURNED OVER TO DR. ENGLISH, BED ASSIGNMENT AT [place] IS PENDING. PT HAS BEEN SLEEPING SOUNDLY SINCE LAST DOSE OF FENTANYL + OXYCODONE, AND BP DOWN TO 120'S/70'S. Diagnostic Imaging Comments KUB--NO ACUTE PROCESS, PENDING RADIOLOGIST REVIEW CT ABDOMEN/PELVIS--PER [facility] VIA FAX AT [phone] X 6 MM CALCULUS IN RIGHT DISTAL URETER, 2 CM FROM URETEROVESICULAR JUNCTION, WITH MODERATE HYDRONEPHROSIS AND HYDROURETER Reviewed: Reviewed by Pr Departure Communication (Admissions) 0007--CALLED DR. ESCOTO, UROLOGIST, LEFT MESSAGE 0017--SPOKE WITH DR. ESCOTO, HE IS NOT AVAILABLE AND ADVISES TRANSFER. 0018--CALLED [facility], THEY WILL CALL BACK 0030--[facility] CALLED BACK, THEY WILL NOT HAVE ANY BEDS UNTIL TOMORROW MORNING 0032--CALLED [facility], [place] [address], HAVE NO BEDS 0034--CALLED [facility] BACK. THEY DO NOT HAVE ANY BEDS AT [facility] EITHER. WILL PROCEED PLANNED FOR TRANSFER IN THE MORNING WHEN BED IS AVAILABLE. 0032--[facility] CALLED BACK, THEY HAVE DISCUSSED WITH UROLOGIST, AND HE WILL SEE PT IN CONSULT. SPOKE WITH DR. FISCHER, HOSPITALIST, ACCEPTS PT FOR ADMIT/TRANSFER. THEY WILL CALL US BACK WHEN BED BECOMES AVAILABLE. IMAGES CLOUDED BY XRAY STAFF. Impression Primary Impression: Right distal ureteral calculus Additional Impressions: HTN (hypertension) Sepsis UTI (urinary tract infection) Disposition: XFER SHT-TRM HOSP Condition: Stable Transfer Transfer Reason: Exceeds level of care (NO UROLOGY SERVICES AVAILABLE HERE) Transfer Facility: [facility] Method of Transfer: EMS Departure-Patient Inst. Referrals: NO,LOCAL PHYSICIAN (PCP/Family) Primary Care Physician MAGALIE MARTIN DO Mar 26, 2022 22:58
[2022-03-26] MEDS ORDERED: KETOROLAC 30 MG/ML VIAL IVP ONE (23:00)
[2022-03-26] MEDS ORDERED: ONDANSETRON 4 MG/2 ML (SDV) Z0FRAN IVP ONE (23:00)
[2022-03-26 23:01] LABS: BILIRUBIN,URINE 1+ (NEGATIVE); CLARITY,URINE SL CLOUDY; COLOR,URINE YELLOW; GLUCOSE, URINE (UA) NEGATIVE (NEGATIVE); KETONES,URINE NEGATIVE (NEGATIVE); LEUKOCYTE ESTERASE ,URINE TRACE (NEGATIVE); NITRITE,URINE NEGATIVE (NEGATIVE); PROTEIN,URINE 1+ (NEGATIVE)
[2022-03-26 23:12] LABS: AMORPHOUS SEDIMENT,UR FEW AMOR URATES /LPF; BACTERIA,URINE LARGE /HPF; RBC,URINE 50-100 /HPF; SQUAMOUS EPITHELIAL CELL,UR 0-2 /HPF; WBC,URINE 50-100 /HPF
[2022-03-26 23:12] LABS: LYMPHOCYTES % (MANUAL) 8 %; MONOCYTES % (MANUAL) 6 %; NEUTROPHILS % (MANUAL) 86 %; POLYCHROMASIA SLIGHT; SPHEROCYTES SLIGHT
[2022-03-26 23:15] LABS: ALBUMIN 3.7 GM/DL (3.2-4.5); BILIRUBIN,TOTAL 0.9 MG/DL (0.1-1.0); CALCIUM 8.7 MG/DL (8.5-10.1); CREATININE SERUM 1.33 MG/DL (0.60-1.30); POTASSIUM 4.3 MMOL/L (3.6-5.0); TOTAL PROTEIN 7.4 GM/DL (6.4-8.2)
[2022-03-26] MEDS ORDERED: hydrALAZINE (APESOLINE) 20 MG/ML VIAL IV ONE (23:30)
[2022-03-27] MEDS ORDERED: fentaNYL INJ 100 MCG/2 ML AMP IVP ONE ×2 (00:15→02:45)
[2022-03-27] MEDS ORDERED: TAMSULOSIN 0.4 MG (FLOMAX) CAP PO SCH (01:00)
[2022-03-27] MEDS ORDERED: hydrALAZINE (APESOLINE) 20 MG/ML VIAL IV ONE (01:00)
[2022-03-27] MEDS ORDERED: fentaNYL INJ 100 MCG/2 ML AMP IVP STA (01:00)
[2022-03-27] MEDS ORDERED: LACTATED RINGERS 1,000 ML IV ONE ×2 (01:15→03:30)
[2022-03-27] MEDS ORDERED: oxyCODONE/APAP 5/325MG (PERCOCET 5) TABLET PO ONE (02:45)
--- NOTE | 2022-03-27 07:24 | Diagnostic Imaging Report ---
PROCEDURE: CT urinary tract, rule out kidney stone. TECHNIQUE: Multiple contiguous axial images were obtained through the abdomen and pelvis without the use of intravenous contrast. Auto Exposure Controls were utilized during the CT exam to meet ALARA standards for radiation dose reduction. INDICATION: Abdominal pain. EXAMINATION: CT abdomen pelvis without contrast 03/26/2022 COMPARISON: 09/03/2021. FINDINGS: Lung bases demonstrate chronic findings with no focal infiltrates. There are coronary calcifications. The nonopacified liver and spleen normal. Pancreas unremarkable. Adrenal glands unremarkable. There is evidence of previous cholecystectomy. Left kidney unremarkable. Moderate to severe right hydroureteronephrosis is noted. There is a 1.1 cm stone in the distal one 3rd of the right ureter. No other ureteral stones appreciated on either side. There is no ascites. No free air. There is diverticular disease without evidence for diverticulitis. There is a small fat-containing umbilical hernia. Atherosclerotic disease is noted. There are chronic findings in the osseous structures with no acute osseous abnormality. IMPRESSION: 1. A 1.1 cm stone in the distal one 3rd of the right ureter with secondary moderate to severe right hydroureteronephrosis. Other findings as above. Findings agree with the preliminary report. Dictated by: Dictated on workstation # [id number]
--- NOTE | 2022-03-27 08:22 | Diagnostic Imaging Report ---
EXAMINATION: Abdomen 1 view HISTORY: Abdominal pain. COMPARISON: 09/03/2021 FINDINGS: There is a moderate amount of gas and stool throughout the colon. Nonobstructive bowel gas pattern. No radiopaque foreign body. The lung bases are clear. Degenerative changes of the hips and spine. Osseous structures are otherwise intact. Right upper quadrant surgical clips are present. IMPRESSION: Moderate stool burden without other acute abnormality in the abdomen. Dictated by: Dictated on workstation # [id number]
[2022-03-27] MEDS ORDERED: cefTRIAXone 1 GM PRE-MIX 50 ML IV ONE (09:00)
[2022-03-27 11:09] VITALS: BP 132/76
== END 2022-03-27 11:09 | disposition short-term general hospital (02) ==
LOC: EDUNIT# 22:11 → ER 22:14
DX: A41.9 Sepsis, unspecified organism (principal); N39.0 Urinary tract infection, site not specified; N13.2 Hydronephrosis with renal and ureteral calculous obstruction; I10 Essential (primary) hypertension; E66.01 Morbid (severe) obesity due to excess calories; G47.33 Obstructive sleep apnea (adult) (pediatric); J44.9 Chronic obstructive pulmonary disease, unspecified; Z95.1 Presence of aortocoronary bypass graft; Z95.5 Presence of coronary angioplasty implant and graft; Z99.89 Dependence on other enabling machines and devices; Z68.42 Body mass index [BMI] 45.0-49.9, adult; Z99.81 Dependence on supplemental oxygen; Z28.310 Unvaccinated for COVID-19
CPT/HCPCS: 36415; 74018; 74176; 80053; 81000; 82150; 83605; 83690; 84145; 85007; 85027; 87040; 87088

== ENCOUNTER 2022-10-03 08:32 | Emergency (ER) | payer MEDICARE ==
[~2022-10-03] VITALS: Ht 149 cm; Wt 105.0 kg
[~2022-10-03 08:32] MED LIST changes: +ALBU8.5H6 IH; -RT-ALBUINH IH
--- NOTE | 2022-10-03 09:38 | ED Lower Extremity ---
General Chief Complaint: Lower Extremity Stated Complaint: RT FOOT PAIN | GOUT Nursing Triage Note: ARRIVED VIA AMB TO ROOM 03 WITH WAKING UP WITH RIGHT FOOT PAIN. THINKS IT IS GOUT. STARTED ALLOPURINOL ON 09/19. Source: patient Exam Limitations: no limitations History of Present Illness Date Seen by Provider: Oct 03, 2022 Time Seen by Provider: 09:35 Initial Comments Patient is a 72-year-old female who presents to the emergency room with a chief complaint of concern for "gout flare" in right foot. Patient states that she had similar symptoms several months ago. She was treated with prednisone she states. That improved she states the pain and swelling started suddenly at 1 AM this morning. Woke her from sleep. She is only been taking Tylenol. She denies any fevers or chills. No leg swelling just foot. No chest pain or shortness of breath. She states this episode is starting out just like the opposite foot did several months ago. She recently started allopurinol on September 19. She states she was told the first episode of gout was precipitated by overdiuresis when she started Lasix. She denies a history of chronic kidney disease. She does not see a fabric finisher. She denies any large protein meals. Onset: other (last night 1am) Severity: moderate Pain/Injury Location: right foot Method of Injury: unknown (?gout) Modifying Factors: Worse With Jarring, Worse With Movement Allergies and Home Medications Allergies Coded Allergies: morphine (Verified Allergy, Severe, HIVE, ITCHING, 09/03/21) ciprofloxacin (Verified Allergy, Unknown, 10/21/18) cortisone (Verified Allergy, Unknown, 10/21/18) lovastatin (Verified Allergy, Unknown, 10/21/18) ALLERGY LISTED ON HEALTHCARE LIAISON ORDER 01/22/16 Patient Home Medication List Home Medication List Reviewed: Yes Acetaminophen (Tylenol Extra Strength) 500 Mg Tablet, 1,000 MG PO HS PRN for PAIN-MILD, (Reported) Entered as Reported by: MARIA FERNANDA MORTENSEN on 10/22/18 0930 Albuterol Sulfate (Ventolin Hfa) 1 Puff Puff, 2 PUFF IH Q4H PRN for WHEEZING Prescribed by: ULICES DURBIN on 10/23/18 1420 Aspirin (Aspirin EC) 81 Mg Tablet.dr, 81 MG PO DAILY, (Reported) Entered as Reported by: MARIA FERNANDA MORTENSEN on 10/22/18929 Atorvastatin Calcium (Atorvastatin Calcium) 40 Mg Tablet, 40 MG PO HS, (Reported) Entered as Reported by: MARIA FERNANDA MORTENSEN on 10/22/18929 Cephalexin (Cephalexin) 500 Mg Tablet, 500 MG PO BID Prescribed by: MIGUEL RIVERA on 09/03/21 1412 Clopidogrel Bisulfate (Clopidogrel) 75 Mg Tablet, 75 MG PO HS, (Reported) Entered as Reported by: MARIA FERNANDA MORTENSEN on 10/22/18929 Furosemide (Furosemide) 20 Mg Tablet, 20 MG PO TWICE WEEKLY PRN for SWELLING, (Reported) Entered as Reported by: MARIA FERNANDA MORTENSEN on 10/22/18929 Hydrocodone/Acetaminophen (Hydrocodone-Acetamin 5-325 mg) 1 Each Tablet, 1 TAB PO Q6H PRN for PAIN-MODERATE (5-7) Prescribed by: CHRISTINA GONZALES on 09/03/21 1301 Losartan/Hydrochlorothiazide (Losartan-Hctz 50-12.5 mg Tab) 1 Each Tablet, 1 TAB PO DAILY, (Reported) Entered as Reported by: MARIA FERNANDA MORTENSEN on 10/22/18929 Metoprolol Tartrate (Metoprolol Tartrate) 50 Mg Tablet, 50 MG PO BID, (Reported) Entered as Reported by: ZEINAB LOUISE on 01/22/16 0725 Naproxen Sodium (Aleve) 220 Mg Tablet, 440 MG PO Q8H PRN for PAIN-MILD, (Reported) Entered as Reported by: MARIA FERNANDA MORTENSEN on 10/22/18929 Ondansetron (Ondansetron Odt) 4 Mg Tab.rapdis, 8 MG PO Q6H PRN for NAUSEA/VOMITING Prescribed by: CUONG CLARKE on 08/26/19 1413 Ondansetron (Ondansetron Odt) 4 Mg Tab.rapdis, 4 MG PO Q8H PRN for nausea Prescribed by: CHRISTINA GONZALES on 09/03/21 1300 Prednisone (Prednisone) 10 Mg Tab, 0 PO DAILY@0700 Prescribed by: ULICES DURBIN on 10/23/18 1420 Tamsulosin HCl (Flomax) 0.4 Mg Cap, 0.4 MG PO DAILY Prescribed by: CHRISTINA GONZALES on 3/29/22 1300 Review of Systems Constitutional: see HPI Respiratory: no symptoms reported Cardiovascular: no symptoms reported Gastrointestinal: no symptoms reported Genitourinary: no symptoms reported Musculoskeletal: gout, joint pain (right foot) Skin: rash (redness top of foot) Psychiatric/Neurological: No Symptoms Reported Past Zyxzgsj-Suornf-Izfgce Hx Patient Social History Tobacco Use?: No Substance use?: No Alcohol Use?: No Immunizations Up To Date Tetanus Booster (TDap): Unknown Seasonal Allergies Seasonal Allergies: Yes Past Medical History Surgery/Hospitalization HX: appy, cabg, cardiac stent, gallbladder, hysterectomy, t/a, cad, htn, mi, gerd, renal stones, sheri, home o2 Surgeries: Yes Abdominal, Appendectomy, Cardiac, CABG, Coronary Stent, Gallbladder, Hysterectomy, Joint Replacement, Oophorectomy, Orthopedic, Tonsillectomy, Tubal Ligation Respiratory: Yes (O2 AT 2L/NC CONTINUOUSLY) Sleep Apnea, COPD Currently Using CPAP: Yes Currently Using BIPAP: No Cardiac: Yes (CABG X 2 VESSELS AND STENT X 1) Coronary Artery Disease, Heart Attack, High Cholesterol, Hypertension Neurological: No Reproductive Disorders: Yes Female Reproductive Disorders: Menstrual Problems 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, Tubal Ligation, Menopausal Genitourinary: Yes Kidney Stones Gastrointestinal: Yes (HIATAL HERNIA/INGUINAL HERNIA--S/P REPAIRS; S/P YIMI) Abdominal Hernia, Gastroesophageal Reflux, Hiatal Hernia, Gall Bladder Disease Musculoskeletal: Yes (S/P BILATEARL KNEE REPLACEMENT) Arthritis, Chronic Back Pain Endocrine: Yes (MORBID OBESITY) Hypothyroidsim HEENT: Yes (S/P T&A) Tonsilitis Loss of Vision: Denies Hearing Impairment: Denies Cancer: No Psychosocial: No Integumentary: No Blood Disorders: No Family Medical History No Pertinent Family Hx SOCIAL HISTORY: -SMOKING--DENIES USE -ETOH--DENIES USE -DRUGS--DENIES USE PAST SURGICAL HISTORY: -CHOLECYSTECTOMY -APPENDECTOMY -BILATERAL TUBAL LIGATION -HYSTERECTOMY / BILATERAL SALPINGO-OOPHORECTOMY -CABG--2 VESSEL -CARDIAC CATHS WITH STENT X1 -BILATERAL TOTAL KNEE REPLACEMENT -BILATERAL CARPAL TUNNEL SURGERY -TONSILLECTOMY / ADENOIDECTOMY -HIATAL HERNIA REPAIR -INGUINAL HERNIA REPAIR Physical Exam Vital Signs Vital Signs - First Documented 10/03/22 08:44 Temp 36.5 Pulse 67 Resp 16 B/P (MAP) 137/84 (101) Pulse Ox 93 O2 Delivery Nasal Cannula Capillary Refill : Less Than 3 Seconds Height, Weight, BMI Height: 4'11.00" Weight: 248lbs. 5.0oz. [id number]; 47.00 BMI Method:Stated General Appearance: WD/WN, no apparent distress, obese HEENT: PERRL/EOMI Cardiovascular: regular rate, rhythm Respiratory: lungs clear, normal breath sounds, no respiratory distress, no accessory muscle use, other (wearing nasal canula oxygen (chronic)) Gastrointestinal: non tender, soft Hips: bilateral hip non-tender, bilateral hip normal range of motion Legs: bilateral leg non-tender, bilateral leg normal inspection, bilateral leg normal range of motion Knees: bilateral knee normal range of motion Ankles: bilateral ankle normal inspection Feet: right foot soft tissue tenderness, right foot swelling, right foot other (mild erythema over the distal metatarsals of the right foot; mild swelling - pain radiates into the 3,4,5th toes. (no pain in 1st MTP joint)) Neurologic/Tendon: normal sensation Neurologic/Psychiatric: alert, normal mood/affect, oriented x 3 Skin: warm/dry Progress/Results/Core Measures Results/Orders Lab Results Laboratory Tests Test 10/03/22 10:05 Range/Units Sodium Level 141 135-145 MMOL/L Potassium Level 4.1 3.6-5.0 MMOL/L Chloride Level 104 98-107 MMOL/L Carbon Dioxide Level 23 21-32 MMOL/L Anion Gap 14 5-14 MMOL/L Blood Urea Nitrogen 22 H 7-18 MG/DL Creatinine 1.07 0.60-1.30 MG/DL Estimat Glomerular Filtration Rate 55 BUN/Creatinine Ratio 21 Glucose Level 108 H 70-105 MG/DL Calcium Level 9.6 8.5-10.1 MG/DL My Orders Orders - CHRISTINA GONZALES MD Basic Metabolic Panel (10/03/22 09:45) Colchicine Tablet (Colcrys Tablet) (10/03/22 10:45) Vital Signs/I&O 10/03/22 08:44 Temp 36.5 Pulse 67 Resp 16 B/P (MAP) 137/84 (101) Pulse Ox 93 O2 Delivery Nasal Cannula Blood Pressure Mean: 101 Departure Impression Primary Impression: Right foot pain Additional Impression: concern for gout Disposition: 01 HOME, SELF-CARE Condition: Stable Departure-Patient Inst. Decision time for Depature: 11:03 Referrals: DANI TAYLOR DO (PCP/Family) Primary Care Physician Patient Instructions: Lifestyle Changes to Manage Gout Add. Discharge Instructions: I have given you 1 more pill to take to help treat this potential flareup of gout. You will need to take a 0.6 mg colchicine 1 hour after taking the dose you took here in the emergency department. I have written you a prescription for pain medication. 1 every 6 hours should be helpful. You can also continue to take extra strength Tylenol 2 pills every 6 hours. Please monitor the redness and pain in your foot. If you notice increasing redness, red streaking up your leg, calf pain and fever please return to the emergency room for reevaluation. Please follow-up with your primary care doctor for further evaluation and management of this possible gout. Scripts Tramadol HCl (Tramadol HCl) 50 Mg Tablet 50 MG PO Q6H PRN for PAIN, #10 TAB 0 Refills Prov: CHRISTINA GONZALES MD 10/03/22 Colchicine (Colchicine) 0.6 Mg Tablet 0.6 MG PO ONCE, #1 TAB Prov: CHRISTINA GONZALES MD 10/03/22 CHRISTINA GONZALES MD Oct 03, 2022 09:38
[2022-10-03 10:27] LABS: POTASSIUM 4.1 MMOL/L (3.6-5.0)
[2022-10-03 10:28] LABS: CALCIUM 9.6 MG/DL (8.5-10.1)
[2022-10-03 10:33] LABS: CREATININE SERUM 1.07 MG/DL (0.60-1.30)
[2022-10-03] MEDS ORDERED: COLCHICINE 0.6 MG (COLCRYS) TABLET PO ONE (10:45)
[2022-10-03] MEDS ORDERED: COLC0.6T59 PO (11:06)
[2022-10-03] MEDS ORDERED: TRM50T PO (11:06)
[2022-10-03 11:18] VITALS: BP 123/74
== END 2022-10-03 11:18 | disposition home or self-care (01) ==
LOC: EDUNIT# 08:32 → ER 08:35
DX: M79.671 Pain in right foot (principal); L53.9 Erythematous condition, unspecified; J44.9 Chronic obstructive pulmonary disease, unspecified; E66.01 Morbid (severe) obesity due to excess calories; Z99.81 Dependence on supplemental oxygen; Z68.42 Body mass index [BMI] 45.0-49.9, adult
CPT/HCPCS: 36415; 80048

== ENCOUNTER 2022-12-30 20:02 | Emergency (ER) | payer MEDICARE ==
[~2022-12-30 20:02] MED LIST changes: +COLC0.6T59 PO; +TRM50T PO
--- NOTE | 2022-12-30 21:13 | ED GU-Female ---
General Chief Complaint: - Reproductive Stated Complaint: POSS KIDNEY STONE Nursing Triage Note: PT AMB TO RM 6 WITH CC OF R LOWER BACK PAIN X2 DAYS. PT STATES SHE BELIEVES SHE HAS A KIDNEY STONE. DENIES PAIN WITH URINATION. DENIES INJURY. PT REPORTS PREVIOUS KIDNEY STONE REQUIRED STENT PLACEMENT. STENT NO LONGER IN PLACE Source: patient Exam Limitations: no limitations History of Present Illness Date Seen by Provider: Dec 30, 2022 Time Seen by Provider: 21:12 Initial Comments Patient is a 72-year-old female presents the ED with right flank pain. Pain started 2 days ago. Described as sharp intermittent and does not radiate. She rates the pain 10 out of 10. She reports nausea without any vomiting or diarrhea. No current abdominal pain. She has been taken Tylenol 500 mg without much improvement. Similar type pain this past June. She was diagnosed with a kidney stone. She had a stent placed at [facility] in [place] which did not work and e nded up having a lithotripsy. Patient denies fever, chills, body aches, dysuria, hematuria, increased urine frequency, decreased urine output. Allergies and Home Medications Allergies Coded Allergies: morphine (Verified Allergy, Severe, HIVE, ITCHING, 09/03/21) ciprofloxacin (Verified Allergy, Unknown, 10/21/18) cortisone (Verified Allergy, Unknown, 10/21/18) lovastatin (Verified Allergy, Unknown, 10/21/18) ALLERGY LISTED ON HUB BORER ORDER 01/22/16 Patient Home Medication List Home Medication List Reviewed: Yes Acetaminophen (Tylenol Extra Strength) 500 Mg Tablet, 1,000 MG PO HS PRN for PAIN-MILD, (Reported) Entered as Reported by: MARIA FERNANDA MORTENSEN on 10/22/18 0930 Albuterol Sulfate (Ventolin Hfa) 1 Puff Puff, 2 PUFF IH Q4H PRN for WHEEZING Prescribed by: ULICES DURBIN on 10/23/18 1420 Aspirin (Aspirin EC) 81 Mg Tablet.dr, 81 MG PO DAILY, (Reported) Entered as Reported by: MARIA FERNANDA MORTENSEN on 10/22/18 0930 Atorvastatin Calcium (Atorvastatin Calcium) 40 Mg Tablet, 40 MG PO HS, (Reported) Entered as Reported by: MARIA FERNANDA MORTENSEN on 10/22/18 0930 Cephalexin (Cephalexin) 500 Mg Tablet, 500 MG PO BID Prescribed by: MIGUEL RIVERA on 09/03/21 1412 Clopidogrel Bisulfate (Clopidogrel) 75 Mg Tablet, 75 MG PO HS, (Reported) Entered as Reported by: MARIA FERNANDA MORTENSEN on 10/22/18 0930 Colchicine (Colchicine) 0.6 Mg Tablet, 0.6 MG PO ONCE Prescribed by: CHRISTINA GONZALES on 10/03/22 1106 Furosemide (Furosemide) 20 Mg Tablet, 20 MG PO TWICE WEEKLY PRN for SWELLING, (Reported) Entered as Reported by: MARIA FERNANDA MORTENSEN on 10/22/18 0930 Hydrocodone/Acetaminophen (Hydrocodone-Acetamin 5-325 mg) 1 Each Tablet, 1 TAB PO Q6H PRN for PAIN-MODERATE (5-7) Prescribed by: CHRISTINA GONZALES on 09/03/21 1301 Losartan/Hydrochlorothiazide (Losartan-Hctz 50-12.5 mg Tab) 1 Each Tablet, 1 TAB PO DAILY, (Reported) Entered as Reported by: MARIA FERNANDA MORTENSEN on 10/22/18 09 Metoprolol Tartrate (Metoprolol Tartrate) 50 Mg Tablet, 50 MG PO BID, (Reported) Entered as Reported by: ZEINAB LOUISE on 01/22/16 0725 Naproxen Sodium (Aleve) 220 Mg Tablet, 440 MG PO Q8H PRN for PAIN-MILD, (Reported) Entered as Reported by: MARIA FERNANDA MORTENSEN on 10/22/18 09 Ondansetron (Ondansetron Odt) 4 Mg Tab.rapdis, 8 MG PO Q6H PRN for NAUSEA/VOMITING Prescribed by: CUONG CLARKE on 08/26/19 1413 Ondansetron (Ondansetron Odt) 4 Mg Tab.rapdis, 4 MG PO Q8H PRN for nausea Prescribed by: CHRISTINA GONZALES on 09/03/21 1300 Prednisone (Prednisone) 10 Mg Tab, 0 PO DAILY@0700 Prescribed by: ULICES DURBIN on 10/23/18 1420 Tamsulosin HCl (Flomax) 0.4 Mg Cap, 0.4 MG PO DAILY Prescribed by: CHRISTINA GONZALES on 09/03/21 1300 Tramadol HCl (Tramadol HCl) 50 Mg Tablet, 50 MG PO Q6H PRN for PAIN Prescribed by: CHRISTINA GONZALES on 10/03/22 1106 Review of Systems Review of Systems Constitutional: No chills, No diaphoresis, No malaise, No weakness EENTM: No ear pain, No blurred vision, No double vision Respiratory: No cough, No dyspnea on exertion Cardiovascular: No chest pain Gastrointestinal: No abdominal pain, No diarrhea; nausea; No vomiting Genitourinary: denies burning, denies discharge, denies dysuria, denies frequency; flank pain Musculoskeletal: back pain; No joint pain Skin: No change in color, No change in hair/nails All Other Systemes Reviewed Negative Unless Noted: Yes Past Dqqpstw-Qsfemu-Iululj Hx Patient Social History Tobacco Use?: No Substance use?: No Alcohol Use?: No Pt feels they are or have been: No Immunizations Up To Date Tetanus Booster (TDap): Unknown Seasonal Allergies Seasonal Allergies: Yes Past Medical History Surgery/Hospitalization HX: appy, cabg, cardiac stent, gallbladder, hysterectomy, t/a, cad, htn, mi, gerd, renal stones, sheri, home o2 Surgeries: Yes Abdominal, Appendectomy, Cardiac, CABG, Coronary Stent, Gallbladder, Hysterectomy, Joint Replacement, Oophorectomy, Orthopedic, Tonsillectomy, Tubal Ligation Respiratory: Yes (O2 AT 2L/NC CONTINUOUSLY) Sleep Apnea, COPD Currently Using CPAP: Yes Currently Using BIPAP: No Cardiac: Yes (CABG X 2 VESSELS AND STENT X 1) Coronary Artery Disease, Heart Attack, High Cholesterol, Hypertension Neurological: No Reproductive Disorders: Yes Female Reproductive Disorders: Menstrual Problems 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 History: Hysterectomy, Tubal Ligation, Menopausal Genitourinary: Yes Kidney Stones Gastrointestinal: Yes (HIATAL HERNIA/INGUINAL HERNIA--S/P REPAIRS; S/P YIMI) Abdominal Hernia, Gastroesophageal Reflux, Hiatal Hernia, Gall Bladder Disease Musculoskeletal: Yes (S/P BILATEARL KNEE REPLACEMENT) Arthritis, Chronic Back Pain Endocrine: Yes (MORBID OBESITY) Hypothyroidsim HEENT: Yes (S/P T&A) Tonsilitis Loss of Vision: Denies Hearing Impairment: Denies Cancer: No Psychosocial: No Integumentary: No Blood Disorders: No Family Medical History No Pertinent Family Hx SOCIAL HISTORY: -SMOKING--DENIES USE -ETOH--DENIES USE -DRUGS--DENIES USE PAST SURGICAL HISTORY: -CHOLECYSTECTOMY -APPENDECTOMY -BILATERAL TUBAL LIGATION -HYSTERECTOMY / BILATERAL SALPINGO-OOPHORECTOMY -CABG--2 VESSEL -CARDIAC CATHS WITH STENT X1 -BILATERAL TOTAL KNEE REPLACEMENT -BILATERAL CARPAL TUNNEL SURGERY -TONSILLECTOMY / ADENOIDECTOMY -HIATAL HERNIA REPAIR -INGUINAL HERNIA REPAIR Physical Exam Vital Signs Vital Signs - First Documented 12/30/22 20:12 Pulse 63 Resp 22 B/P (MAP) 172/75 (107) Pulse Ox 95 O2 Delivery Nasal Cannula O2 Flow Rate 3.00 Capillary Refill : Less Than 3 Seconds Height, Weight, BMI Height: 4'11.00" Weight: 248lbs. 5.0oz. 112.746264ko; 47.00 BMI Method:Stated General Appearance: WD/WN, no apparent distress HEENT: PERRL/EOMI, normal ENT inspection, TMs normal, pharynx normal Neck: non-tender, full range of motion, supple, normal inspection Cardiovascular: regular rate, rhythm, no edema, no gallop, no JVD Respiratory: chest non-tender, lungs clear, normal breath sounds, no respiratory distress, no accessory muscle use Gastrointestinal: normal bowel sounds, non tender, soft, no organomegaly Pelvic: normal external exam, normal adnexa Back: vertebral tenderness (Right lower paraspinal muscle tenderness. Pain with movement. 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7 11.5-16.0 g/dL Hematocrit 40 35-52 % Mean Corpuscular Volume 93 80-99 fL Mean Corpuscular Hemoglobin 29 25-34 pg Mean Corpuscular Hemoglobin Concent 32 32-36 g/dL Red Cell Distribution Width 14.2 10.0-14.5 % Platelet Count 355 130-400 10^3/uL Mean Platelet Volume 9.7 9.0-12.2 fL Immature Granulocyte % (Auto) 1 % Neutrophils (%) (Auto) 70 42-75 % Lymphocytes (%) (Auto) 13 12-44 % Monocytes (%) (Auto) 8 0-12 % Eosinophils (%) (Auto) 8 0-10 % Basophils (%) (Auto) 1 0-10 % Neutrophils # (Auto) 8.1 H 1.8-7.8 10^3/uL Lymphocytes # (Auto) 1.5 1.0-4.0 10^3/uL Monocytes # (Auto) 0.9 0.0-1.0 10^3/uL Eosinophils # (Auto) 0.9 H 0.0-0.3 10^3/uL Basophils # (Auto) 0.1 0.0-0.1 10^3/uL Immature Granulocyte # (Auto) 0.1 0.0-0.1 10^3/uL Percent Immature Platelet Fraction 2.5 0.0-7.6 % Sodium Level 140 135-145 MMOL/L Potassium Level 4.2 3.6-5.0 MMOL/L Chloride Level 105 98-107 MMOL/L Carbon Dioxide Level 24 21-32 MMOL/L Anion Gap 11 5-14 MMOL/L Blood Urea Nitrogen 28 H 7-18 MG/DL Creatinine 1.29 0.60-1.30 MG/DL Estimat Glomerular Filtration Rate 44 BUN/Creatinine Ratio 22 Glucose Level 104 70-105 MG/DL Calcium Level 9.1 8.5-10.1 MG/DL Corrected Calcium 9.1 8.5-10.1 MG/DL Total Bilirubin 0.6 0.1-1.0 MG/DL Aspartate Amino Transf (AST/SGOT) 24 5-34 U/L Alanine Aminotransferase (ALT/SGPT) 19 0-55 U/L Alkaline Phosphatase 106 40-136 U/L Total Protein 7.2 6.4-8.2 GM/DL Albumin 4.0 3.2-4.5 GM/DL Lipase 81 H 8-78 U/L Urine Color YELLOW Urine Clarity CLEAR Urine pH 6.0 5-9 Urine Specific [place] <=1.005 1.016-1.022 Urine Protein NEGATIVE NEGATIVE Urine Glucose (UA) NEGATIVE NEGATIVE Urine Ketones NEGATIVE NEGATIVE Urine Nitrite NEGATIVE NEGATIVE Urine Bilirubin NEGATIVE NEGATIVE Urine Urobilinogen 0.2 < = 1.0 MG/DL Urine Leukocyte Esterase 1+ H NEGATIVE Urine RBC (Auto) NEGATIVE NEGATIVE Urine RBC NONE /HPF Urine WBC 0-2 /HPF Urine Squamous Epithelial Cells 10-25 H /HPF Urine Crystals NONE /LPF Urine Bacteria TRACE /HPF Urine Casts NONE /LPF Urine Mucus NEGATIVE /LPF Urine Culture Indicated NO My Orders Orders - VADIM WASHINGTON Cbc With Automated Diff (12/30/22 21:13) Comprehensive Metabolic Panel (12/30/22 21:13) Lipase (12/30/22 21:13) Ua Culture If Indicated (12/30/22 21:13) Ketorolac Injection (Toradol Injection) (12/30/22 21:30) Fentanyl Inj (Sublimaze Injection) (12/30/22 21:30) Ct Abdomen/Pelvis Wo (12/30/22 ) Rx-Tramadol Hcl (Rx-Ultram) (12/30/22 22:30) Medications Given in ED Current Medications Medications Dose Ordered Sig/Ivy Route Start Time Stop Time Status Last Admin Dose Admin Fentanyl Citrate 50 mcg ONCE ONCE IVP 12/30/22 21:30 12/30/22 21:31 DC 12/30/22 21:29 50 MCG Ketorolac Tromethamine 30 mg ONCE ONCE IVP 12/30/22 21:30 12/30/22 21:31 DC 12/30/22 20:33 30 MG Tramadol HCl 50 mg ONCE ONCE PO 12/30/22 22:30 12/30/22 22:31 DC 12/30/22 22:29 50 MG Vital Signs/I&O 12/30/22 12/30/22 20:12 22:32 Pulse 63 50 Resp 22 22 B/P (MAP) 172/75 (107) 168/80 Pulse Ox 95 97 O2 Delivery Nasal Cannula Nasal Cannula O2 Flow Rate 3.00 3.00 3.00 Capillary Refill : Less Than 3 Seconds Blood Pressure Mean: 107 Departure Communication (PCP) Reviewed previous ER visits, H&P, lab testing. Differential diagnosis nephrolithiasis, lumbosacral strain, SI joint dysfunction. history of right- sided nephrolithiasis, urolithiasis. She states in June at [facility] she had a lithotripsy. No rating pain. No vomiting. Took Tylenol at home without much improvement. Patient with a history of COPD chronically on 3 L. Denies any specific chest pain or shortness of breath. CBC, CMP, lipase, urinalysis CT abdomen pelvis without contrast was ordered. She initially received Toradol without much improvement. She did receive a dose of fentanyl with improvement. Did not give fluids. She states she is on Lasix. Patient CBC showed slight elevated white blood count at 11. Chemistry grossly unremarkable besides BUN of 28 and a lipase of 81. Nonspecific. Urinalysis without evidence of hematuria or infection. CT abdomen pelvis was negative for acute abnormality. She was tender to right flank, right lower lumbar paraspinal. She did have some right SI joint tenderness. No bowel or urine cons or saddle paresthesia. Denies of any specific numbness and tingling to the right leg associated with this pain. Patient is on anticoagulant. She states she does not tolerate hydrocodone. She cannot take NSAIDs. Tylenol without any relief. We will trial tramadol for the next few days. Discussed following up with orthopedic for further evaluation as concerned this may be SI joint dysfunction. May benefit with SI joint injection. If any worsening symptoms return back to ED for further evaluation Impression Primary Impression: Low back pain Disposition: HOME, SELF-CARE Condition: Stable Departure-Patient Inst. Decision time for Depature: 22:21 Referrals: DANI TAYLOR DO (PCP) Primary Care Physician KAYLI ROMERO MD Patient Instructions: Low Back Pain ED Add. Discharge Instructions: Take tramadol as needed. May continue with Tylenol. If continued pain suggest following up with an orthopedic. All discharge instructions reviewed with patient and/or family. Voiced understanding. VADIM WASHINGTON Dec 30, 2022 21:13
[2022-12-30 21:27] LABS: BASOPHILS # (AUTO) 0.1 10^3/uL (0.0-0.1); BASOPHILS % (AUTO) 1 % (0-10); EOSINOPHILS # (AUTO) 0.9 10^3/uL (0.0-0.3); EOSINOPHILS % (AUTO) 8 % (0-10); HEMATOCRIT 40 % (35-52); HEMOGLOBIN 12.7 g/dL (11.5-16.0); LYMPHOCYTES # (AUTO) 1.5 10^3/uL (1.0-4.0); LYMPHOCYTES % (AUTO) 13 % (12-44); MEAN CORPUSCULAR HEMOGLOBIN 29 pg (25-34); MEAN CORPUSCULAR HGB CONC 32 g/dL (32-36); MEAN CORPUSCULAR VOLUME 93 fL (80-99); MEAN PLATELET VOLUME 9.7 fL (9.0-12.2); MONOCYTES # (AUTO) 0.9 10^3/uL (0.0-1.0); MONOCYTES % (AUTO) 8 % (0-12); NEUTROPHILS # (AUTO) 8.1 10^3/uL (1.8-7.8); NEUTROPHILS % (AUTO) 70 % (42-75); PLATELET COUNT 355 10^3/uL (130-400); WHITE BLOOD COUNT 11.6 10^3/uL (4.3-11.0)
[2022-12-30] MEDS ORDERED: KETOROLAC 30 MG/ML VIAL IVP ONE (21:30)
[2022-12-30] MEDS ORDERED: fentaNYL INJ 100 MCG/2 ML AMP IVP ONE (21:30)
[2022-12-30 21:36] LABS: BILIRUBIN,TOTAL 0.6 MG/DL (0.1-1.0); CREATININE SERUM 1.29 MG/DL (0.60-1.30)
[2022-12-30 21:41] LABS: CALCIUM 9.1 MG/DL (8.5-10.1); POTASSIUM 4.2 MMOL/L (3.6-5.0); TOTAL PROTEIN 7.2 GM/DL (6.4-8.2)
[2022-12-30 21:49] LABS: BILIRUBIN,URINE NEGATIVE (NEGATIVE); CLARITY,URINE CLEAR; COLOR,URINE YELLOW; GLUCOSE, URINE (UA) NEGATIVE (NEGATIVE); KETONES,URINE NEGATIVE (NEGATIVE); LEUKOCYTE ESTERASE ,URINE 1+ (NEGATIVE); NITRITE,URINE NEGATIVE (NEGATIVE); PROTEIN,URINE NEGATIVE (NEGATIVE)
--- NOTE | 2022-12-30 21:55 | Diagnostic Imaging Report ---
PROCEDURE: CT abdomen and pelvis without contrast. TECHNIQUE: Multiple contiguous axial images were obtained through the abdomen and pelvis without the use of intravenous contrast. Auto Exposure Controls were utilized during the CT exam to meet ALARA standards for radiation dose reduction. INDICATION: Flank pain EXAMINATION: CT abdomen and pelvis without contrast 12/30/2022 COMPARISON: 03/26/2022 FINDINGS: Lung bases demonstrate bibasilar dependent atelectasis. Small nodule left lung base noted which should be followed using the Fleischner criteria. Nonopacified liver and spleen normal. Postcholecystectomy changes noted. Pancreas atrophied. Adrenal glands unremarkable. There is no nephrolithiasis or hydronephrosis. There are no ureteral stones. Appendix not seen but no inflammatory changes noted in the right lower quadrant. There is mild diverticular disease with no evidence for diverticulitis. No ascites. No free air. There is diffuse atherosclerotic disease. There is no acute osseous abnormality. IMPRESSION: 1. No nephrolithiasis or hydronephrosis. No ureteral stones. 2. Diverticulosis without evidence for acute diverticulitis. 3. Small nodule left lung base which should be followed using Fleischner criteria. Otherwise incidental findings as above. Dictated by: Dictated on workstation # [id number]
[2022-12-30 22:12] LABS: BACTERIA,URINE TRACE /HPF; WBC,URINE 0-2 /HPF
[2022-12-30 22:32] VITALS: BP 168/80
== END 2022-12-30 22:32 | disposition home or self-care (01) ==
LOC: EDUNIT# 20:02 → ER 20:03
DX: M54.50 Low back pain, unspecified (principal); J44.9 Chronic obstructive pulmonary disease, unspecified; E66.01 Morbid (severe) obesity due to excess calories; Z99.81 Dependence on supplemental oxygen; Z68.42 Body mass index [BMI] 45.0-49.9, adult; Z87.442 Personal history of urinary calculi; Z79.01 Long term (current) use of anticoagulants
CPT/HCPCS: 36415; 74176; 80053; 81000; 83690; 85025